=== PATIENT | male | born 1955 | race Caucasian/White ===

== ENCOUNTER 2016-12-14 16:21 | Inpatient (IN) | payer MEDICAID ==
[2016-12-14] MEDS ORDERED: Etomidate* 2 MG/ML 20 ML VIAL (40 MG) ONE (16:28)
[2016-12-14] MEDS ORDERED: NS 0.9% 1000 ML* 1,000 ML IV ONE (16:43)
[2016-12-14] MEDS ORDERED: Propofol* 100 ML ONE ×2 (17:05→19:52)
--- NOTE | 2016-12-14 17:07 | RAD ---
Indication: Code Schaefer. Neurologic changes. Comparison: No relevant prior exams available on the [facility] for comparison. Technique: Noncontrast CT vertex of skull through foramen magnum. Report: The sulci, ventricles, and basal cisterns are normal for age. Schaefer matter white matter differentiation is preserved without evidence for edema. No intra or extra axial hemorrhage, mass, or fluid collection detected. Unremarkable visualized orbital contents. Normal variant LEFT dominant vertebral artery. Tortuous basilar artery. Unremarkable calvarium and skull base. Unremarkable scalp. The visualized paranasal sinuses and LEFT mastoid air spaces are clear. Partially opacified hypoplastic RIGHT mastoid air spaces. IMPRESSION: No CT stigmata of ischemic stroke or evidence for intracranial hemorrhage. Negative for mass effect. Results discussed with Dr. Proctor 12/14/2016 5:02 PM EDT
[2016-12-14] MEDS ORDERED: Midazolam* 1 MG/ML 10 ML VIAL (10 MG) ONE (17:47)
[2016-12-14] MEDS ORDERED: Propofol* 500 MG/50 ML BTL IV SCH (18:00)
[2016-12-14] MEDS ORDERED: Aspirin TAB* 325 MG PO ONE (18:01)
[2016-12-14] MEDS ORDERED: Midazolam* 1 MG/ML 2 ML VIAL (2 MG) IV PRN (18:02)
--- NOTE | 2016-12-14 18:06 | RAD ---
Indication: Neurological changes. Code [place]. Comparison: No relevant prior exams available on the [facility] [place] for comparison. Technique: Supine AP 1735 hours Report: Tip of endotracheal tube 12 cm above the Farida. Nasogastric tube passes to the stomach and outside the hzvpb-xr-nodn caudally. Grossly clear lungs and pleural spaces. Negative for cardiomegaly. Unremarkable central pulmonary vasculature and mediastinal contours. IMPRESSION: The endotracheal tube should be advanced approximate 6.5 cm. No evidence for acute intrathoracic disease.
[2016-12-14] MEDS ORDERED: Amiodarone 150 MG IVPREMIX* 150 MG/100 ML BAG IV ONE (18:22)
[2016-12-14] MEDS ORDERED: Atorvastatin* 80 MG TAB PO ONE (18:26)
[2016-12-14] MEDS ORDERED: Amiodarone 360 MG IVPREMIX* 360 MG/200 ML BAG IV ONE (18:30)
[2016-12-14 18:37] LABS: Troponin I 6.1 ng/mL (<0.04)
[2016-12-14 18:38] LABS: Albumin 4.1 g/dL (3.2-5.2); EGFR African American 87.2 (>60); EGFR Non-African American 67.8 (>60); Globulin 2.8 g/dL (2-4); HDL Cholesterol 36.9 mg/dL; Potassium 3.9 mmol/L (3.5-5.0); Total Bilirubin 0.5 mg/dL (0.2-1.0); Total Protein 6.9 g/dL (6.4-8.9)
--- NOTE | 2016-12-14 18:43 | PN ---
Progress Note - Progress Note Date of Service: 12/14/16 Note: Endotracheal Intubation Procedure Note Indication: cardiac arrest, respiratory failure Procedure done emergently. Patient preoxygenated/denitrogenated with 100% FiO2 using bagmask Patient was medicated with etomidate for sedation Visualization of vocal cords with Grade 2 view obtained using glidescope. 7.5 ETT was passed through the vocal cords under direct visualization and confirmed with condensation, chest rise with bilateral breath sounds and positive color change x3 on qualitative capnography. ETT was secured at 24 cm at lip. CXR - ett high in trachea; readjusted to moved 3 cm down further, good TV post and sats Patient tolerated procedure without immediate complication. Paul Ybarra MD Pharmacy Affairs Assistant (electronically signed)
[2016-12-14] MEDS ORDERED: Midazolam* 1 MG/ML 2 ML VIAL (2 MG) ONE (18:53)
--- NOTE | 2016-12-14 18:56 | HP ---
H&P (Free Text) History and Physical: H&P - Critical Care Reason for admission: cardiac arrest Limitations in history/physical: intubated, post arrest Date of admission: 12/14/2016 HPI: 61y M with history of smoking; brought in by EMS for cardiac arrest. According to workers at [employer], patient developed chest pain past 1 week , on and off. Today at 915 chest pain+, rested, around noon he was working again. Around 3pm he suddenly collapsed, was gasping for air, workers called 911, they advised CPR, started by workers. EMS arrived 10min later and another 10min later alternate EMS. Patient defibrillated x3 for VF, with ROSC. First EKG with inferior wall THA II/III/AvF. Brought to ER, pulse in hand, agonal breaths, intubated. NSR, BP 130s, eyes open nonresponsive. Before intubation and given etomidate, noted to be not moving right side. Immediate EKG with THA inferiorly resolved. Due to right upper ext not moving, not waking up, cath was delayed till CT head done. Stat CT head done, no bleed. Neuro evaluating, pupils sluggish on right but reactive, not moving upper right ext, not moving lower right ext, still not well responsive, episodes of posturing also evident at times. Decision that severe neuro injury might be in place, less thinking of possible ischemic CVA. Decision not to give tPA by neuro and team based on his state. Cath delayed due to resolved ST segments, some hemodyn stability and unclear neurological status with possible severe anoxic injury/posturing/CVA. Decision made to give asa/statin, amio start for VF, hypothermia protocol. This was discussed with the son at length in the ER and his current condition. ROS: unable to obtain, intubated PMHx: unknown PSHx: unknown Family History: non signficant as per son Social History: Alcohol-none, Smoking-active, unknown quantity, Drug use-no; Job -customer care representative Allergies: unknown Home Medications: unknown Tele: NSR Vitals: Intake & Output 12/14/16 12/14/16 12/15/16 06:59 18:59 06:59 Weight 176 lb 5.917 oz O2/Vent: switch to AC 16/500/+5/100% Infusions: propofol, levophed, NS Current Medications: Atorvastatin Calcium (Lipitor*) 80 mg PO 1700 [facility] Heparin Sodium (Porcine) (Heparin Flush Picc/Ml/Cvc(*)) 0 ml FLUSH 0600,1800 GABO PRN Reason: Protocol Heparin Sodium (Porcine) (Heparin Vial(*)) 5,000 units SUBCUT Q8HR [facility] Propofol (Diprivan*) 500 mg in 50 mls @ 9.6 mls/hr IV .(Initial Rate) GABO PRN Reason: 20 MCG/KG/MIN Amiodarone HCl (Nexterone 360 Mg/200 Ml Ivpremix*) 360 mg in 200 mls @ 33.333 mls/hr IV ONCE ONE PRN Reason: 1 MG/MIN Stop: 12/15/16 00:29 Amiodarone HCl (Nexterone 360 Mg/200 Ml Ivpremix*) 360 mg in 200 mls @ 16.666 mls/hr IV .PER PROTOCOL [facility] PRN Reason: 0.5 MG/MIN Midazolam HCl (Versed 2mg/2ml*) 2 mg IV Q1HR PRN PRN Reason: AGITATION Stop: 12/17/16 18:01 Pantoprazole Sodium (Protonix Iv*) 40 mg IV DAILY [facility] Physical Exam: General: intubated sedated Head: normocephalic, atraumatic HEENT: no pallor, no icterus, moist mucous membranes Neck: soft, supple, no jvd, no stridor CVS: normal rate, normal rhythm, no murmur Resp: dec air entry bilaterally Abdomen: soft, nondistended, bowel sounds present Ext: pulses+, warm, no edema Skin: intact, no breakdown, no dryness Neuro: intubated sedated; pupils constricted but reactive me; right upper ext no movement with any stimuli, right lower ext soem movement after a few hours; gag+, cough+ Labs: Laboratory Results - last 24 hr 12/14/16 12/14/16 12/14/16 16:35 16:35 16:55 WBC 16.9 H RBC 4.55 Hgb 15.3 Hct 46 MCV 102 H MCH 34 H MCHC 33 RDW 13 Plt Count 326 MPV 9 Neut % (Auto) 61.6 Lymph % (Auto) 27.7 [place] % (Auto) 9.0 Eos % (Auto) 1.0 Baso % (Auto) 0.7 Absolute Neuts (auto) 10.4 H Absolute Lymphs (auto) 4.7 Absolute Monos (auto) 1.5 H Absolute Eos (auto) 0.2 Absolute Basos (auto) 0.1 Absolute Nucleated RBC 0.01 Nucleated RBC % 0 INR (Anticoag Therapy) 0.94 APTT 27.5 Sodium Potassium Chloride Carbon Dioxide Anion Gap BUN Creatinine Est GFR ( Amer) Est GFR (Non-Af Amer) BUN/Creatinine Ratio Glucose Calcium Total Bilirubin AST ALT Alkaline Phosphatase Total Creatine Kinase CK-MB (CK-2) Troponin I Total Protein Albumin Globulin Albumin/Globulin Ratio Triglycerides Cholesterol LDL Cholesterol HDL Cholesterol Blood Type A Positive Antibody Screen Negative 12/14/16 16:55 WBC RBC Hgb Hct MCV MCH MCHC RDW Plt Count MPV Neut % (Auto) Lymph % (Auto) [place] % (Auto) Eos % (Auto) Baso % (Auto) Absolute Neuts (auto) Absolute Lymphs (auto) Absolute Monos (auto) Absolute Eos (auto) Absolute Basos (auto) Absolute Nucleated RBC Nucleated RBC % INR (Anticoag Therapy) APTT Sodium 139 Potassium 3.9 Chloride 106 Carbon Dioxide 22 Anion Gap 11 BUN 20 Creatinine 1.11 Est GFR ( Amer) 87.2 Est GFR (Non-Af Amer) 67.8 BUN/Creatinine Ratio 18.0 Glucose 167 H Calcium 9.0 Total Bilirubin 0.50 AST 109 H ALT 80 H Alkaline Phosphatase 69 Total Creatine Kinase 821 H CK-MB (CK-2) 165.8 H Troponin I 6.10 H* Total Protein 6.9 Albumin 4.1 Globulin 2.8 Albumin/Globulin Ratio 1.5 Triglycerides 142 Cholesterol 254 LDL Cholesterol 189 HDL Cholesterol 36.9 Blood Type Antibody Screen Imaging: cxr 12/14- ett high, no infitlrate/effusion, hyperinflated lungs it appears ct head - neg for acute process. Assessment: 61y M with history of smoking; brought in by EMS for out of hospital cardiac arrest, VFib arrest, with transient THA inferiorly and h/o chest pain for 1 week. Noted to have possible CVA vs severe anoxic injury in ER , holding on cardiac catheterization. -VF cardiac arrest -Transient ST elevation, inferiorly, suspected STEMI -Acute Hypoxic Respiratory Failure -Hypothermia protocol -Encephelopathy, suspected hypoxic-ischemic encephelopathy vs CVA during arrest -tobacco use history Plan: Neuro- based on presentation, this may be more anoxic injury. will start hypothermia protocol. ct head neg 12/14. will repeat CT head in 12-24 hours. sedation with propofol. IV paralytics for shivering if needed. watch for fevers. bdz only as needed bolus. Goal temp will be 34-35deg C. CVS- post arrest. EKG improved, no further ST changes or minimal. started asa 325 x1, statin. Will follow trop, may need heparin IV but reassess tomorrow after CT head to see if evolution of CVA. TTE for LV function, bedside was okay with hyperdyn LV, RV slightly hypokinetic. Watch for bradycardia on hypothermia. Watch K. Start Amio IV for VF. Cont IVF NS at 75cc/hour. on Pressors with levophed, goal SBP 100, keep MAP>65. Monitor urine output. Arterial cath in place in right fem art. May be in post arrest SIRS state with hypotension vs cardiogenic component. Resp- intubated, ETT moved after reviewed CXR. no effusion/infiltrate. on 100%, obtain ABG now, adjust fio2. Peak pr 22. h/o smoking, hyperinflated lungs on CXR. bronchodilators as needed. no steroids indicated. cxr tomorrow, abg in AM. ID- leukocytosis, may be reactive. hypotensive post arrest. on hypothermia now. will hold abx, clinical history not consistent with sepsis. GI- NPO. insert NGT. PPI prophylaxis Renal- Cr 1.1, making urine. K okay, no acidosis. pending lactic acid. chen in place. Cont NS infusion, cont pressors. Heme- hg okay. plt okay. started asa. monitor for bleeding and plt dysfunction while hypothermia ongoing. INR normal. Endo- insulin protocol, drip as needed if hyperglycemia. Musculsk- pressure ulcer proph. Wounds- none DVT prophylaxis: hold heparin sq for tonight GI prophylaxis: PPI iv Central Line: right fem Arterial Line: right fem Chen Cathetor: yes Disposition: ICU for cardiac arrest, resp failure, shock, hypothermia Code Status: full code Total Critical Care time is 90 minutes, excluding procedures/teaching Paul Ybarra MD Concrete Boom Operator (Electronically Signed)
[2016-12-14] MEDS ORDERED: Norepinephrine 16MCG/ML IVPRE* 4,000 MCG/250 ML BAG IV ONE (19:21)
--- NOTE | 2016-12-14 19:42 | PN ---
Progress Note - Progress Note Date of Service: 12/14/16 Note: Arterial Line Procedure Note Indication: hypotension/shock, cardiac arrest Consent was emergent - Prior labs/history was reviewed prior to procedure - Full sterile precautions with chlorhexidine/full drapes/gowns/gloves utilized - right fem artery visualized with US - Vessel accessed with return of pulsatile blood. 1 attempt was made to access vessel. A cathetor was threaded over wire into vessel. Good arterial waveform was observed on monitor. - Arterial Catheter was sutured to site - Adequate hemostasis was achieved, EBL <5 cc No immediate complications noted, patient tolerated procedure well. Dressing applied to site. Paul Ybarra MD Tile Machine Operator (electronically signed)
[2016-12-14] MEDS ORDERED: NS 0.9% 1000 ML* 1,000 ML ONE (19:43)
--- NOTE | 2016-12-14 19:43 | PN ---
Progress Note - Progress Note Date of Service: 12/14/16 Note: Central Line Procedure Note Indication: Hypotension/shock, hypothermia protocol Hypothermia cathetor placement Consent was emergent - Prior labs/history was reviewed prior to procedure - Full sterile precautions with chlorhexidine/full drapes/gowns/gloves utilized - right fem vein visualized with ultrasound - Vessel accessed under ultrasound guidance with return of nonpulsatile blood. A guidewire was passed into vessel and confirmed in vessel with ultrasound. 1 attempt was made to access vessel. Vessel was dilated and cathetor was passed over wire into vessel. All ports demonstrated good blood return and flushed. Catheter was sutured to site and dressing applied Adequate hemostasis was achieved, EBL <5 cc No immediate complications noted, patient tolerated procedure well. Paul Ybarra MD Server Programmer (electronically signed)
[2016-12-14 19:46] LABS: Hematocrit 46 % (42-52); Hemoglobin 15.3 g/dl (14.0-18.0); Mean Corpuscular HGB Conc 33 g/dl (31-36); Mean Corpuscular Hemoglobin 34 pg (27-31); Mean Corpuscular Volume 102 fL (80-94); Mean Platelet Volume 9 um3 (7.4-10.4); Red Blood Count 4.55 10^6/ul (4.0-5.4); Red Cell Distribution Width 13 % (10.5-15); White Blood Count 16.9 10^3/ul (3.5-10.8)
[2016-12-14] MEDS ORDERED: Propofol* 10 MG/ML 20 ML BTL IV PUSH ONE (19:51)
[2016-12-14] MEDS ORDERED: VECURONIUM BROMIDE 10 MG INJ IV STA (20:04)
[2016-12-14] MEDS ORDERED: Meperidine SYRINGE* 50 MG/ML ONE (20:05)
--- NOTE | 2016-12-14 20:12 | ED ---
Singh Valenzuela Thomas, scribed for Breezy Proctor MD on 12/14/16 at 1748 . Complex/Multi-Sys Presentation - HPI Summary HPI Summary: The patient is a 61 y/o M who collapsed when he was at work. He had been complaining of CP all day long. Bystanders started CPR soon after he collapsed. The ambulance arrived and found that the patient was in V-Fib. They defibrillated him three times while performing CPR, and he had spontaneous return of pulses. They transported him with a bag assisting respirations with an oral airway and transmitted an EKG via fax which showed ST elevations inferiorly. A STEMI was called and he was met in the room by Dr. Genao and Dr. Ybarra. LEVEL 5 CAVEAT: HPI IS LIMITED DUE TO DECREASED LEVEL OF RESPONSIVENESS - History Of Current Complaint Hx Obtained From: EMS Hx From Patient Unobtainable Due To: Other - Decreased level of responsiveness - Allergies/Home Medications Allergies/Adverse Reactions: Allergies Allergy/AdvReac Type Severity Reaction Status Date / Time Unable to Obtain Allergy Verified 12/14/16 17:58 Home Medications: Home Medications NK [No Home Medications Reported] 12/14/16 [History Confirmed 12/14/16] PMH/Surg Hx/FS Hx/Imm Hx Previously Healthy: No - LEVEL 5 CAVEAT: PMH IS LIMITED DUE TO DECREASED LEVEL OF RESPONSIVENESS Infectious Disease History: Denies: Traveled Outside the [place] in Last 30 Days Review of Systems - ROS Summary Review of Systems Summary: LEVEL 5 CAVEAT: ROS IS LIMITED DUE TO DECREASED LEVEL OF RESPONSIVENESS Neurological: Other - Collapsed while at work. All Other Systems Reviewed And Are Negative: No Physical Exam - Summary Physical Exam Summary: On arrival, the patients pupils were equal at 2-3 mm. The left eye is slightly disconjugated to the left. He had no gag reflex. There are spontaneous respirations. He was extensor posturing with more movement on the left than the right. He had bilateral breath sounds. He was borderline tachycardic. LEVEL 5 CAVEAT: PHYSICAL EXAM LIMITED BY DECREASED RESPONSIVENESS Triage Information Reviewed: Yes Diagnostics - Laboratory Lab Results: Lab Results 12/14/16 Range/Units 16:35 Blood Type A Positive Antibody Screen Negative Result Diagrams: 12/14/16 16:35 12/14/16 16:55 Lab Statement: Any lab studies that have been ordered have been reviewed, and results considered in the medical decision making process. - CT CT Brain CT Interpretation: No Acute Changes - No CT stigmata of ischemic stroke or evidence for intracranial hemorrhage. Negative for mass effect. ED physician has reviewed this report and agrees. CT Interpretation Completed By: Radiologist - EKG 15:26 Cardiac Rate: Tachycardia - [address] elevations in II, III, and AVF consistent with an acute inferior TN. There are no reciprocal changes. EKG Rhythm: Sinus Tachycardia Complex Multi-Symp Course/Dx Course Of Treatment: Mr. Moncada presented obtunded. He occasionally had extensor posturing (moving his left side more) to noxious stimuli. His ecg from the field showed ST elevations in the inferior leads without reciprocal changes but his iinitial ecg here was improved. There were still elevations but they were not nearly as pronounced. 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 Dr. Cowart consulted on him and elected not to give him thrombolytics. Dr. Ybarra is admitting him to the ICU. - Diagnoses Provider Diagnoses: STEMI (ST elevation myocardial infarction), Cardiopulmonary arrest, Anoxic brain damage - Physician Notifications Discussed Care Of Patient With: Pierce Genao Time Discussed With Above Provider: 16:30 Instructed by Provider To: Other - I consulted with Dr. Genao (cardiology), Dr. Ybarra (water pollution scientist), and Dr. Cowart (neurology) regarding the patient. They came to the ED to assess the patient. - Critical Care Time Critical Care Time: 75-104 min Discharge - Discharge Plan Condition: Fair Disposition: ADMITTED TO [facility] The documentation as recorded by the Singh ansari Thomas accurately reflects the service I personally performed and the decisions made by me, Breezy Proctor MD.
[2016-12-14] MEDS ORDERED: NS 0.9% 1000 ML* 1,000 ML IV SCH (20:15)
[2016-12-14] MEDS ORDERED: Cisatracurium* 100 MG in NS 0.9% 250 ML* 200 ML IVPB SCH (20:15)
[2016-12-14] MEDS ORDERED: Albuterol (2.5 MG) 0.5 % CONC 2.5 MG/0.5 ML NEB.SOLN (ICU and ED only) INH PRN (20:17)
[2016-12-14] MEDS: Midazolam PREMIX BAG 1 MG/ML* 100 MG/100 ML BAG IV SCH (20:42)
[2016-12-14 20:46] LABS: Urine Bacteria Absent (Absent); Urine Bilirubin Negative (Negative); Urine Glucose Negative (Negative); Urine Nitrite Negative (Negative); Urine Sperm Present (Absent)
--- NOTE | 2016-12-14 21:42 | RAD ---
Indication: Orogastric tube placement. Code willingham. Comparison: 1734 hours exam of the same date. Technique: Upright AP 2118 hours Report: Endotracheal tube tip 8 cm above the Farida. Orogastric tube passes to the stomach with the tip outside the [id number]-qz-yfyb caudally. Grossly clear lungs and pleural spaces. Negative for pneumothorax. Negative for cardiomegaly. Unremarkable central pulmonary vasculature and mediastinal contours. IMPRESSION: Endotracheal tube tip 8 cm above the Farida. Orogastric tube passes to the stomach with the tip outside the [id number]-ld-gjrz caudally.
[2016-12-14] MEDS ORDERED: busPIRone TAB* 30 MG NG TUBE PRN (21:48)
--- NOTE | 2016-12-14 21:50 | CONS ---
NEUROLOGY CONSULTATION: DATE OF CONSULT: 12/14/16 LOCATION: The patient is in the emergency department. REQUESTING PHYSICIAN: Pierce Genao MD REASON FOR CONSULT: Possible stroke. 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 Around 3:30 p.m. apparently, the patient was witnessed to fall and become unresponsive at work. He had reportedly been complaining of chest pain all day. Reportedly CPR was started within 2 to 3 minutes and EMS arrived within 15 minutes. The report of Dr. Proctor received from EMS is that he was shocked 3 times given no medications and they got return of spontaneous circulation at that point. He was brought into the ER with an oral airway and being bagged, but he had no gag reflex upon arriving. He was reported to have inferior ST elevations in the field and on arrival here, Dr. Genao reports that they were minimal at best. The patient began actively resisting with his left arm and was not noted to be moving his right arm much and therefore, Dr. Genao had concern that the patient was possibly experiencing a stroke as well. At that point, I was asked to get involved in the patient's case. When I arrived in the emergency department, the patient had been intubated and had been given etomidate. He was noted to be exhibiting some decerebrate posturing. He was emergently brought to the CAT scan out of concern for a possible hemorrhage. In the CT scanner, he continued to exhibit decerebrate posturing with left arm moving more than right arm, but his legs moving equally. He was given succinylcholine to get through the CT. PAST MEDICAL HISTORY: Unknown. HOME MEDICATIONS: Unknown. ALLERGIES: Unknown. FAMILY HISTORY: Unknown. SOCIAL HISTORY: Unknown. REVIEW OF SYSTEMS: Not obtainable secondary to the patient's condition. PHYSICAL EXAM: Vital Signs: The patient's blood pressure most recently was noted to be approximately 120s/100s. He is in sinus rhythm on the monitor in the 110s. He is intubated. On general exam, the patient is poorly groomed with very dirty hands. He evacuated his bowels on the ER stretcher. As the paralytic wore off, he is noted to be coughing and fighting against the ventilator. His heart is regular with no obvious murmurs. The lungs were clear anteriorly. Neurologic Exam: He does not respond to voice. His gaze is midline. His pupils are 4-mm and the left briskly reacts to approximately 2.5 mm while the right is more sluggishly reactive to approximately 3 mm. VORs are intact. There is no blink to threat bilaterally. There is no obvious facial asymmetry, though difficult to assess secondary to intubation. He has normal tone in his upper extremities. He is noted to be exhibiting decerebrate posturing left greater than right. He does not respond to pain in any extremity. Toes are mute. Of note, the patient received small dose of succinylcholine approximately 10 minutes prior to my exam. DIAGNOSTIC STUDIES/LAB DATA: Noncontrast head CT was obtained and personally reviewed and shows no evidence for intracranial hemorrhage nor any large vessel occlusion. There is no evidence of obvious prior stroke. There is no evidence of early ischemic changes either. No laboratory data is available at this time. IMPRESSION AND PLAN: Stephane Moncada is a 61-year-old man with unknown past medical history and home medications, who presented to the hospital with a witnessed cardiac arrest. I was asked to be get involved in the case when he appeared to have a right hemiparesis on Dr. Genao's evaluation. His CT scan was negative for hemorrhage. His examination is notable for decerebrate posturing with intact brainstem reflexes. The posturing is asymmetric with him moving the right arm less than the left. Nevertheless, I do not think that he is an appropriate tPA candidate at this time, as his presentation appears more consistent with diffuse anoxic injury. There is no target seen on his plain head CT for endovascular therapy. Dr. Ybarra from the ICU is involved as well and I believe the patient is going to be cooled and a repeat head CT will be obtained in approximately 12 hours to assess for anoxic injury or focal injury. Thank you for this consultation. Neurology will follow along as needed in this unfortunate gentleman's case. [id number]/[facility] #: [id number] [facility]
[2016-12-14] MEDS ORDERED: Fentanyl PCA (Continuous Infusion)* 20 ML PCA SCH (22:00)
[2016-12-14] MEDS ORDERED: busPIRone TAB* 30 MG NG TUBE ONE (22:00)
--- NOTE | 2016-12-14 22:07 | CONS ---
INTERVENTIONAL CARDIOLOGY CONSULT NOTE: DATE OF CONSULT: 12/14/16 REASON FOR THE CONSULT: The patient with an [id number] arrest with a question of inferior wall ST segment elevation on EKG at the scene. 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 According to [place] worker, he states that for the past week and a half, he has been complaining about chest and left arm discomfort. Today when he came in to do work on the car, Stephane had the chest discomfort, left arm discomfort. According to the worker, he did not have shortness of breath or sweating or nauseousness. Stephane worked during the day and then went to lunch at 12 noon. He came back around 1 and worked in the afternoon. He no longer complained of any chest discomfort to the worker. The worker stated he did not appear diaphoretic or short of breath. He took a break and went to sit on the stool and according to the worker, "keeled over." The worker called 911. 911 instructed him how to perform CPR, which he started within 2 minutes of him collapsing. Within 5 minutes, a lead car emergency service worker arrived and tried to shock Stephane back to normal sinus rhythm. Reportedly according to [facility], he was in VFib. Multiple shocks were attempted and were not successful. [facility] arrived within 20 minutes of the original phone call according to the worker and I believe they shocked him one more time and was getting ready to shock him again and he developed a pulse. With that, they did an EKG and the EKG revealed a sinus rhythm with what appeared to be J-point elevation in 2, 3, aVF, although the baseline was moving quite a bit. He had no definitive reciprocal changes in the early precordial leads. He was brought in by ambulance and in the emergency room, a repeat EKG had shown a question of mild ST segment elevation more prominent in lead aVF with slightly in lead 2 and to some degree in lead 3. Once again, there were no definitive impressive reciprocal changes seen. It was noted that the patient was moving his left arm quite strongly, but not moving his right arm at all. He was not moving his right leg either. Because of that, a Oren Vu was called. Also, Dr. Cowart saw the patient in consultation. He was sent to a CAT scan after there were signs of him posturing with the concern being a bleed. The CAT scan did not show any bleed. At that point, Dr. Cowart was uncertain, but thought that perhaps this was all due to hypoxic cerebral ischemia. Dr. Ybarra managed the case from intensive care basis and the patient was intubated prior to going to CT scan and the patient was sedated. Repeat EKG was done and at that time showed no ST segment elevation inferiorly. An echo was attempted portably and it was a poor quality echo with the most best views obtained subcostally and it showed a hyperdynamic LV with the RV hypokinetic. From a cardiac risk factor, I have learnt that he is a heavy smoker all of his life. We do not know anything about diabetes, hypertension, or hyperlipidemia and there is no family history according to his son. REVIEW OF SYSTEMS: Unobtainable and other information necessitating in speaking with the patient is obviously unobtainable at this point. PHYSICAL EXAMINATION: When I saw him revealed blood pressure initially in the emergency room as high in the 130's to 170's, after sedation his blood pressure dropped significantly down more transiently into the 80 range up into the 90's with fluid response. His neck was supple. It is impossible to assess for bruits present due to his breath sounds on the respirator. His lungs had diminished breath sounds bilaterally. There was a question of slight wheeze present. Heart was very distant in nature, I did not appreciate any significant systolic or diastolic murmurs. Abdomen was soft, nontender. Extremities were without edema. The right femoral artery was diminished. I could not hear a definitive bruit. The left femoral artery had a good pulse with no bruits. Distal pulses were mildly diminished. Neuro: The patient is sedated, so cannot be assessed. DIAGNOSTIC STUDIES/LAB DATA: Laboratory results are pending at this time and chest x-ray showed interstitial edema. OVERALL ASSESSMENT: Mr. Moncada presents now with an out of hospital arrest, most likely ventricular fibrillation, although the history of a stroke was brought up , but with the further history we elicited from the worker at the automobile place where he works on cars of left arm discomfort and chest discomfort, most likely this is more of an ischemic nature. The EKG shows no acute ST segment elevation at this point in time and Neurology and Intensive Care favors not proceeding directly to the cardiovascular laboratory with institution of a full bolus anticoagulation therapy, but we will watch him carefully over the course of the next 24 hours and if he does not progress with any potential bleeding, consideration for anticoagulation and emergent cardiac catheterization will be entertained. He will be given aspirin therapy in addition to statin therapy and beta darya therapy if he can tolerate it with regard to his pressure. Further management will be made pending his course over the next 12 to 24 hours. The time involved with this patient was over 2 hrs with most of it directly with the patient. [id number]/CPS #: [id number] KATINA
[2016-12-14 22:28] LABS: FIO2 100; Patient Temp ABG 35.6; Resp Rate 17; Ventilator Volume 500
[2016-12-14 22:31] LABS: PH Temp Corrected 7.22 (7.35-7.45)
[2016-12-14] MEDS: Heparin VIAL(*) 5000 UNITS/ML VIAL (FIVE THOUSAND) SUBCUT SCH (22:38)
[2016-12-14] MEDS: Norepinephrine 16MCG/ML IVPRE* 4,000 MCG/250 ML BAG IV SCH (22:43)
[2016-12-15] LABS: Anion Gap 7 mmol/L (2-11); BUN/Creatinine Ratio 28.2 (8-20); Blood Urea Nitrogen 22 mg/dL (6-24); CO2 Carbon Dioxide 24 mmol/L (22-32); Calcium 7.8 mg/dL (8.6-10.3); Chloride 107 mmol/L (101-111); EGFR Non-African American 101.9 (>60); Glucose 208 mg/dL (70-100); Magnesium 1.9 mg/dL (1.9-2.7); Potassium 4.5 mmol/L (3.5-5.0); Sodium 138 mmol/L (133-145)
[2016-12-15 00:11] LABS: Troponin I 21.95 ng/mL (<0.04)
[2016-12-15] MEDS: Propofol* 1000 MG (10 MG/ML 100 ml) @ Per Protocol (in ICU Pyxis) IV SCH ×6 (00:13→23:12)
[2016-12-15 00:18] LABS: Creatine Kinase 2383 U/L (10-223)
[2016-12-15] MEDS ORDERED: Amiodarone 360 MG IVPREMIX* 360 MG/200 ML BAG IV SCH (00:30)
[2016-12-15] MEDS: Norepinephrine 16MCG/ML IVPRE* 4,000 MCG/250 ML BAG IV SCH ×3 (01:27→19:23)
[2016-12-15 02:28] LABS: Phosphorus 3.8 mg/dL (2.5-5.0)
[2016-12-15 04:44] LABS: PCO2 Arterial 27 mmHg (35-45)
[2016-12-15 04:48] LABS: Hematocrit 47 % (42-52); Hemoglobin 15.6 g/dl (14.0-18.0); Mean Corpuscular HGB Conc 33 g/dl (31-36); Mean Corpuscular Hemoglobin 34 pg (27-31); Mean Corpuscular Volume 102 fL (80-94); Mean Platelet Volume 8 um3 (7.4-10.4); Red Blood Count 4.57 10^6/ul (4.0-5.4); Red Cell Distribution Width 14 % (10.5-15)
[2016-12-15 04:55] LABS: Comments Flag Yes
[2016-12-15 04:58] LABS: Add Diff/Slide Review? Slide Review Added
[2016-12-15 05:04] LABS: ALT 86 U/L (7-52); Albumin 3.7 g/dL (3.2-5.2); Alkaline Phosphatase 57 U/L (34-104); BUN/Creatinine Ratio 24.4 (8-20); Blood Urea Nitrogen 22 mg/dL (6-24); CO2 Carbon Dioxide 22 mmol/L (22-32); Calcium 7.7 mg/dL (8.6-10.3); Chloride 107 mmol/L (101-111); EGFR African American 111.1 (>60); EGFR Non-African American 86.4 (>60); Globulin 2.2 g/dL (2-4); Glucose 208 mg/dL (70-100); Phosphorus 3.6 mg/dL (2.5-5.0); Sodium 135 mmol/L (133-145); Total Protein 5.9 g/dL (6.4-8.9)
[2016-12-15 05:08] LABS: Troponin I 13.23 ng/mL (<0.04)
[2016-12-15 05:09] LABS: Anion Gap 6 mmol/L (2-11)
[2016-12-15] MEDS: Heparin VIAL(*) 5000 UNITS/ML VIAL (FIVE THOUSAND) SUBCUT SCH ×3 (05:57→22:29)
[2016-12-15 07:52] LABS: Creatine Kinase 2650 U/L (10-223)
--- NOTE | 2016-12-15 08:04 | RAD ---
HISTORY: Cardiac arrest COMPARISONS: December 14, 2016 VIEWS: 2: frontal portable view of the chest at 6 6:05 AM FINDINGS: LINES AND TUBES: An endotracheal tube is noted with the tip overlying the trachea between the clavicles and the toya. A gastric tube is noted, with the tip in the left upper quadrant in a prepyloric position.. CARDIOMEDIASTINAL SILHOUETTE: The cardiomediastinal silhouette is normal for portable technique. PLEURA: There is a small right pleural effusion. LUNG PARENCHYMA: There is patchy alveolar opacification of the right lung base ABDOMEN: The upper abdomen is clear. There is no subphrenic gas. BONES AND SOFT TISSUES: There is chronic posttraumatic change to the right clavicle IMPRESSION: 1. LINES AND TUBES ABOVE. 2. SMALL RIGHT PLEURAL EFFUSION WITH RIGHT BASILAR ATELECTASIS VERSUS CONSOLIDATION
[2016-12-15] MEDS: Pantoprazole IV* 40 MG IV SCH (08:33)
[2016-12-15] MEDS: Aspirin Low Dose CHEW TAB* 81 MG PO SCH (08:33)
--- NOTE | 2016-12-15 08:37 | PN ---
Progress Note - Progress Note Date of Service: 12/15/16 Note: Progress Note - Critical Care 24 hour events: -remains intubated, on pressors. -on propofol and versed for sedation -on levo, not much change in requirements -overnight bradycardia to 50s, still in 50s now, no further hypotension from haile -BS okay -no further shivering -on hypothermia protocol, temp 35.1Celcius -on amio infusion, no futher VT/VF noted -noted troponins overnight Tele: sinus bradycardia Vitals: Vital Signs Temp 95.2 F 12/15/16 08:00 Pulse 54 12/15/16 08:00 Resp 25 12/15/16 07:48 BP 96/74 12/15/16 08:00 Pulse Ox 98 12/15/16 08:00 Intake & Output 12/14/16 12/15/16 12/15/16 18:59 06:59 18:59 Intake Total 2830.6 247.5 Output Total 580 55 Balance 2250.6 192.5 Weight 176 lb 5.917 oz 203 lb 7.787 oz Intake: IV Fluids 1388 214 NS (0.9%) 1388 214 Medicated IV 1442.6 32.5 CC - Amiodarone 315 CC - Norepinephrine/ 884 Levophed CC - Propofol/Diprivan 206 32.5 midazolam 37.6 IV Narcotic Infusion 1 Versed 1 Output: Chen 580 55 O2/Vent: AC 16/500/+5/100% Infusions: propofol 50, levophed 20, NS 100, versed 1, amio 0.5mg/hr Current Medications: Albuterol (Albuterol (2.5 Mg) 0.5 % Conc) 2.5 mg INH Q4HR PRN PRN Reason: WHEEZING Aspirin (Aspirin Low Dose Tab*) 81 mg PO DAILY GABO Last Admin: 12/15/16 08:33 Dose: 81 mg Atorvastatin Calcium (Lipitor*) 80 mg PO 1700 GABO Buspirone HCl (Buspar Tab*) 60 mg NG TUBE Q6H PRN PRN Reason: SHIVERING Heparin Sodium (Porcine) (Heparin Flush Picc/Ml/Cvc(*)) 0 ml FLUSH 0600,1800 GABO PRN Reason: Protocol Last Admin: 12/15/16 05:57 Dose: 1 ml Heparin Sodium (Porcine) (Heparin Vial(*)) 5,000 units SUBCUT Q8HR [facility] Last Admin: 12/15/16 05:57 Dose: 5,000 units Amiodarone HCl (Nexterone 360 Mg/200 Ml Ivpremix*) 360 mg in 200 mls @ 16.666 mls/hr IV .PER PROTOCOL GABO PRN Reason: 0.5 MG/MIN Last Admin: 12/15/16 03:48 Dose: 16.666 mls/hr Cisatracurium Besylate 100 mg/ (Sodium Chloride) 250 mls @ 60 mls/hr IVPB .( Initial Rate) GABO PRN Reason: 5 MCG/KG/MIN Midazolam HCl (Versed Premix Bag 1 Mg/Ml*) 100 mg in 100 mls @ 0 mls/hr IV .Q24HR GABO PRN Reason: As Directed Last Admin: 12/14/16 20:42 Dose: 4 mls/hr Sodium Chloride (Ns 0.9% 1000 Ml*) 1,000 mls @ 100 mls/hr IV PER RATE [facility] Last Admin: 12/15/16 01:56 Dose: 100 mls/hr Norepinephrine Bitartrate (Levophed 16 Mcg/Ml Premix Bag*) 4,000 mcg in 250 mls @ 18.75 mls/hr IV .INITIAL RATE GABO; 5 MCG/MIN PRN Reason: Protocol Last Admin: 12/15/16 07:53 Dose: 45 mls/hr Propofol (Diprivan*) 100 mls @ 0 mls/hr IV .(Initial Rate) GABO; 0 MCG/KG/MIN PRN Reason: Protocol Last Admin: 12/15/16 08:16 Dose: 12 mls/hr Meperidine HCl (Demerol Syringe*) 25 mg IV ONCE PRN PRN Reason: PAIN/INFLAMMATION Meperidine HCl (Demerol Syringe*) 25 mg IV Q1H PRN PRN Reason: SHIVERING Midazolam HCl (Versed 2mg/2ml*) 2 mg IV Q1HR PRN PRN Reason: AGITATION Stop: 12/17/16 18:01 Pantoprazole Sodium (Protonix Iv*) 40 mg IV DAILY [facility] Last Admin: 12/15/16 08:33 Dose: 40 mg Physical Exam: General: intubated sedated Head: normocephalic, atraumatic HEENT: no pallor, no icterus, moist mucous membranes Neck: soft, supple, no jvd, no stridor CVS: bradycardic, normal rhythm, no murmur Resp: dec air entry bilaterally Abdomen: soft, nondistended, bowel sounds present Ext: pulses+, warm, no edema Skin: intact, no breakdown, no dryness Neuro: intubated sedated; pupils constricted but reactive me; no gap iliicited, no corneal illicited; limited exam due to sedation Labs: Laboratory Results - last 24 hr 12/14/16 12/14/16 12/14/16 16:35 16:35 16:55 WBC 16.9 H RBC 4.55 Hgb 15.3 Hct 46 MCV 102 H MCH 34 H MCHC 33 RDW 13 Plt Count 326 MPV 9 Neut % (Auto) 61.6 Lymph % (Auto) 27.7 Ness % (Auto) 9.0 Eos % (Auto) 1.0 Baso % (Auto) 0.7 Absolute Neuts (auto) 10.4 H Absolute Lymphs (auto) 4.7 Absolute Monos (auto) 1.5 H Absolute Eos (auto) 0.2 Absolute Basos (auto) 0.1 Absolute Nucleated RBC 0.01 Nucleated RBC % 0 INR (Anticoag Therapy) 0.94 APTT 27.5 Fibrinogen Cancelled D-Dimer, Quantitative > 1050 H Patient Temperature ABG pH ABG pH (Temp Correct) ABG pCO2 ABG pCO2 (Temp Corrct ABG pO2 ABG pO2 (Temp Correct ABG HCO3 ABG O2 Saturation ABG Base Excess Respiration Rate Ventilator Type Vent Mode FiO2 Inspiratory Time PEEP Pressure Support Pressure Control EPAP IPAP BiPAP Sodium Potassium Chloride Carbon Dioxide Anion Gap BUN Creatinine Est GFR ( Amer) Est GFR (Non-Af Amer) BUN/Creatinine Ratio Glucose POC Glucose (mg/dL) Lactic Acid Calcium Phosphorus Magnesium Total Bilirubin AST ALT Alkaline Phosphatase Total Creatine Kinase CK-MB (CK-2) Troponin I Total Protein Albumin Globulin Albumin/Globulin Ratio Triglycerides Cholesterol LDL Cholesterol HDL Cholesterol Lipase TSH Cortisol Urine Color Urine Appearance Urine pH Ur Specific [place] Urine Protein Urine Ketones Urine Blood Urine Nitrate Urine Bilirubin Urine Urobilinogen Ur Leukocyte Esterase Urine WBC (Auto) Urine RBC (Auto) Calcium Oxalate Crystal Amorphous Crystals Urine Bacteria Hyaline Casts Granular Casts Urine Sperm Urine Glucose Blood Type A Positive Antibody Screen Negative 12/14/16 12/14/16 12/14/16 16:55 19:45 20:20 WBC RBC Hgb Hct MCV MCH MCHC RDW Plt Count MPV Neut % (Auto) Lymph % (Auto) Ness % (Auto) Eos % (Auto) Baso % (Auto) Absolute Neuts (auto) Absolute Lymphs (auto) Absolute Monos (auto) Absolute Eos (auto) Absolute Basos (auto) Absolute Nucleated RBC Nucleated RBC % INR (Anticoag Therapy) APTT Fibrinogen D-Dimer, Quantitative Patient Temperature ABG pH ABG pH (Temp Correct) ABG pCO2 ABG pCO2 (Temp Corrct ABG pO2 ABG pO2 (Temp Correct ABG HCO3 ABG O2 Saturation ABG Base Excess Respiration Rate Ventilator Type Vent Mode FiO2 Inspiratory Time PEEP Pressure Support Pressure Control EPAP IPAP BiPAP Sodium 139 Potassium 3.9 Chloride 106 Carbon Dioxide 22 Anion Gap 11 BUN 20 Creatinine 1.11 Est GFR ( Amer) 87.2 Est GFR (Non-Af Amer) 67.8 BUN/Creatinine Ratio 18.0 Glucose 167 H POC Glucose (mg/dL) Lactic Acid 0.9 Calcium 9.0 Phosphorus 3.8 Magnesium 2.0 Total Bilirubin 0.50 AST 109 H ALT 80 H Alkaline Phosphatase 69 Total Creatine Kinase 821 H CK-MB (CK-2) 165.8 H Troponin I 6.10 H* Total Protein 6.9 Albumin 4.1 Globulin 2.8 Albumin/Globulin Ratio 1.5 Triglycerides 142 Cholesterol 254 LDL Cholesterol 189 HDL Cholesterol 36.9 Lipase 21 TSH Cortisol 23.75 Urine Color Yellow Urine Appearance Cloudy Urine pH 5.0 Ur Specific [place] 1.014 Urine Protein 2+(100 mg/dl) H Urine Ketones Negative Urine Blood 2+ H Urine Nitrate Negative Urine Bilirubin Negative Urine Urobilinogen Negative Ur Leukocyte Esterase Negative Urine WBC (Auto) 1+(6-10/hpf) H Urine RBC (Auto) 2+(6-10/hpf) H Calcium Oxalate Crystal Present H Amorphous Crystals Present H Urine Bacteria Absent Hyaline Casts Present H Granular Casts Present H Urine Sperm Present H Urine Glucose Negative Blood Type Antibody Screen 12/14/16 12/14/16 12/14/16 20:32 22:15 23:30 WBC RBC Hgb Hct MCV MCH MCHC RDW Plt Count MPV Neut % (Auto) Lymph % (Auto) Ness % (Auto) Eos % (Auto) Baso % (Auto) Absolute Neuts (auto) Absolute Lymphs (auto) Absolute Monos (auto) Absolute Eos (auto) Absolute Basos (auto) Absolute Nucleated RBC Nucleated RBC % INR (Anticoag Therapy) APTT Fibrinogen D-Dimer, Quantitative Patient Temperature 35.6 ABG pH Not Reportable ABG pH (Temp Correct) 7.22 L ABG pCO2 Not Reportable ABG pCO2 (Temp Corrct 27 L ABG pO2 Not Reportable ABG pO2 (Temp Correct 304 H ABG HCO3 12.9 L ABG O2 Saturation 99.2 H ABG Base Excess -15.4 L Respiration Rate 17 Ventilator Type 500 Vent Mode Apvcmv FiO2 100 Inspiratory Time Not Reportable PEEP 5 Pressure Support Not Reportable Pressure Control Not Reportable EPAP Not Reportable IPAP Not Reportable BiPAP Not Reportable Sodium 138 Potassium 4.5 Chloride 107 Carbon Dioxide 24 Anion Gap 7 BUN 22 Creatinine 0.78 Est GFR ( Amer) 131.0 Est GFR (Non-Af Amer) 101.9 BUN/Creatinine Ratio 28.2 H Glucose 208 H POC Glucose (mg/dL) 104 H Lactic Acid Calcium 7.8 L Phosphorus Magnesium 1.9 Total Bilirubin AST ALT Alkaline Phosphatase Total Creatine Kinase 2383 H CK-MB (CK-2) > 300.0 H Troponin I 21.95 H* Total Protein Albumin Globulin Albumin/Globulin Ratio Triglycerides Cholesterol LDL Cholesterol HDL Cholesterol Lipase TSH Cortisol Urine Color Urine Appearance Urine pH Ur Specific [place] Urine Protein Urine Ketones Urine Blood Urine Nitrate Urine Bilirubin Urine Urobilinogen Ur Leukocyte Esterase Urine WBC (Auto) Urine RBC (Auto) Calcium Oxalate Crystal Amorphous Crystals Urine Bacteria Hyaline Casts Granular Casts Urine Sperm Urine Glucose Blood Type Antibody Screen 12/14/16 12/15/16 12/15/16 23:57 02:34 04:13 WBC RBC Hgb Hct MCV MCH MCHC RDW Plt Count MPV Neut % (Auto) Lymph % (Auto) Ness % (Auto) Eos % (Auto) Baso % (Auto) Absolute Neuts (auto) Absolute Lymphs (auto) Absolute Monos (auto) Absolute Eos (auto) Absolute Basos (auto) Absolute Nucleated RBC Nucleated RBC % INR (Anticoag Therapy) APTT Fibrinogen D-Dimer, Quantitative Patient Temperature ABG pH ABG pH (Temp Correct) ABG pCO2 ABG pCO2 (Temp Corrct ABG pO2 ABG pO2 (Temp Correct ABG HCO3 ABG O2 Saturation ABG Base Excess Respiration Rate Ventilator Type Vent Mode FiO2 Inspiratory Time PEEP Pressure Support Pressure Control EPAP IPAP BiPAP Sodium Potassium Chloride Carbon Dioxide Anion Gap BUN Creatinine Est GFR ( Amer) Est GFR (Non-Af Amer) BUN/Creatinine Ratio Glucose POC Glucose (mg/dL) 144 H 147 H 204 H Lactic Acid Calcium Phosphorus Magnesium Total Bilirubin AST ALT Alkaline Phosphatase Total Creatine Kinase CK-MB (CK-2) Troponin I Total Protein Albumin Globulin Albumin/Globulin Ratio Triglycerides Cholesterol LDL Cholesterol HDL Cholesterol Lipase TSH Cortisol Urine Color Urine Appearance Urine pH Ur Specific [place] Urine Protein Urine Ketones Urine Blood Urine Nitrate Urine Bilirubin Urine Urobilinogen Ur Leukocyte Esterase Urine WBC (Auto) Urine RBC (Auto) Calcium Oxalate Crystal Amorphous Crystals Urine Bacteria Hyaline Casts Granular Casts Urine Sperm Urine Glucose Blood Type Antibody Screen 12/15/16 12/15/16 12/15/16 04:15 04:15 04:15 WBC 26.0 H RBC 4.57 Hgb 15.6 Hct 47 MCV 102 H MCH 34 H MCHC 33 RDW 14 Plt Count 254 MPV 8 Neut % (Auto) 84.7 H Lymph % (Auto) 8.1 L Ness % (Auto) 6.6 Eos % (Auto) 0.1 Baso % (Auto) 0.5 Absolute Neuts (auto) 22.1 H Absolute Lymphs (auto) 2.1 Absolute Monos (auto) 1.7 H Absolute Eos (auto) 0 Absolute Basos (auto) 0.1 Absolute Nucleated RBC 0 Nucleated RBC % 0 INR (Anticoag Therapy) APTT Fibrinogen D-Dimer, Quantitative Patient Temperature ABG pH ABG pH (Temp Correct) ABG pCO2 ABG pCO2 (Temp Corrct ABG pO2 ABG pO2 (Temp Correct ABG HCO3 ABG O2 Saturation ABG Base Excess Respiration Rate Ventilator Type Vent Mode FiO2 Inspiratory Time PEEP Pressure Support Pressure Control EPAP IPAP BiPAP Sodium 135 Potassium TNP Chloride 107 Carbon Dioxide 22 Anion Gap 6 BUN 22 Creatinine 0.90 Est GFR ( Amer) 111.1 Est GFR (Non-Af Amer) 86.4 BUN/Creatinine Ratio 24.4 H Glucose 208 H POC Glucose (mg/dL) Lactic Acid 1.6 Calcium 7.7 L Phosphorus 3.6 Magnesium 2.0 Total Bilirubin 0.90 AST TNP ALT 86 H Alkaline Phosphatase 57 Total Creatine Kinase 2650 H CK-MB (CK-2) Troponin I 13.23 H* Total Protein 5.9 L Albumin 3.7 Globulin 2.2 Albumin/Globulin Ratio 1.7 Triglycerides Cholesterol LDL Cholesterol HDL Cholesterol Lipase TSH Cortisol Urine Color Urine Appearance Urine pH Ur Specific [place] Urine Protein Urine Ketones Urine Blood Urine Nitrate Urine Bilirubin Urine Urobilinogen Ur Leukocyte Esterase Urine WBC (Auto) Urine RBC (Auto) Calcium Oxalate Crystal Amorphous Crystals Urine Bacteria Hyaline Casts Granular Casts Urine Sperm Urine Glucose Blood Type Antibody Screen 12/15/16 12/15/16 12/15/16 04:15 04:20 05:15 WBC RBC Hgb Hct MCV MCH MCHC RDW Plt Count MPV Neut % (Auto) Lymph % (Auto) Ness % (Auto) Eos % (Auto) Baso % (Auto) Absolute Neuts (auto) Absolute Lymphs (auto) Absolute Monos (auto) Absolute Eos (auto) Absolute Basos (auto) Absolute Nucleated RBC Nucleated RBC % INR (Anticoag Therapy) APTT Fibrinogen D-Dimer, Quantitative Patient Temperature ABG pH 7.21 L ABG pH (Temp Correct) ABG pCO2 27 L ABG pCO2 (Temp Corrct ABG pO2 190 H ABG pO2 (Temp Correct ABG HCO3 12.8 L ABG O2 Saturation 98.6 H ABG Base Excess -15.6 L Respiration Rate Ventilator Type Vent Mode FiO2 Inspiratory Time PEEP Pressure Support Pressure Control EPAP IPAP BiPAP Sodium Potassium 5.2 H Chloride Carbon Dioxide Anion Gap BUN Creatinine Est GFR ( Amer) Est GFR (Non-Af Amer) BUN/Creatinine Ratio Glucose POC Glucose (mg/dL) Lactic Acid Calcium Phosphorus Magnesium Total Bilirubin AST 163 H ALT Alkaline Phosphatase Total Creatine Kinase CK-MB (CK-2) Troponin I Total Protein Albumin Globulin Albumin/Globulin Ratio Triglycerides Cholesterol LDL Cholesterol HDL Cholesterol Lipase TSH 1.21 Cortisol Urine Color Urine Appearance Urine pH Ur Specific [place] Urine Protein Urine Ketones Urine Blood Urine Nitrate Urine Bilirubin Urine Urobilinogen Ur Leukocyte Esterase Urine WBC (Auto) Urine RBC (Auto) Calcium Oxalate Crystal Amorphous Crystals Urine Bacteria Hyaline Casts Granular Casts Urine Sperm Urine Glucose Blood Type Antibody Screen 12/15/16 06:15 WBC RBC Hgb Hct MCV MCH MCHC RDW Plt Count MPV Neut % (Auto) Lymph % (Auto) Ness % (Auto) Eos % (Auto) Baso % (Auto) Absolute Neuts (auto) Absolute Lymphs (auto) Absolute Monos (auto) Absolute Eos (auto) Absolute Basos (auto) Absolute Nucleated RBC Nucleated RBC % INR (Anticoag Therapy) APTT Fibrinogen D-Dimer, Quantitative Patient Temperature ABG pH ABG pH (Temp Correct) ABG pCO2 ABG pCO2 (Temp Corrct ABG pO2 ABG pO2 (Temp Correct ABG HCO3 ABG O2 Saturation ABG Base Excess Respiration Rate Ventilator Type Vent Mode FiO2 Inspiratory Time PEEP Pressure Support Pressure Control EPAP IPAP BiPAP Sodium Potassium Chloride Carbon Dioxide Anion Gap BUN Creatinine Est GFR ( Amer) Est GFR (Non-Af Amer) BUN/Creatinine Ratio Glucose POC Glucose (mg/dL) 143 H Lactic Acid Calcium Phosphorus Magnesium Total Bilirubin AST ALT Alkaline Phosphatase Total Creatine Kinase CK-MB (CK-2) Troponin I Total Protein Albumin Globulin Albumin/Globulin Ratio Triglycerides Cholesterol LDL Cholesterol HDL Cholesterol Lipase TSH Cortisol Urine Color Urine Appearance Urine pH Ur Specific [place] Urine Protein Urine Ketones Urine Blood Urine Nitrate Urine Bilirubin Urine Urobilinogen Ur Leukocyte Esterase Urine WBC (Auto) Urine RBC (Auto) Calcium Oxalate Crystal Amorphous Crystals Urine Bacteria Hyaline Casts Granular Casts Urine Sperm Urine Glucose Blood Type Antibody Screen Imaging: cxr 12/14- ett high, no infitlrate/effusion, hyperinflated lungs it appears ct head - neg for acute process. cxr 12/15 - ett above toya; right small pleural effusion +/- right base atelectasis/consoli Assessment: 61y M with history of smoking; brought in by EMS for out of hospital cardiac arrest, VFib arrest, with transient THA inferiorly and h/o chest pain for 1 week. Noted to have possible CVA vs severe anoxic injury in ER , holding on cardiac catheterization. -VF cardiac arrest -Transient ST elevation, inferiorly, suspected STEMI -Acute Hypoxic Respiratory Failure -Hypothermia protocol -Encephelopathy, suspected hypoxic-ischemic encephelopathy vs CVA during arrest -tobacco use history Plan: Neuro- cont hypothermia; limited neuro exam. on propofol and versed, lower versed this morning. not much moving, no gap/corneal, pinpoint pupils+. going for CT head this morning. target temp 25C. no seizure activity noted as of now. CVS- remains on levophed, similiar dosing as yesterday. now bradycardic, from hypothermia, but no further hemodyn compromise, so no dopamine added. K okay. No VT/VF noted, on amio for VF during arrest, will complete and monitor off then. no BB at this time. on Asa/statin via ngt. ECHO performed and pending official read, noted bedside RV dilated. Trop peaked at 21. Repeat EKG now. d- dimer elevated. Will send for stat CTA chest for r/o PE. Has smoking history, unclear if long standing RV dysfunction also if underlying lung disease. Resp- iintubated, CXR with small new effusion. on 70% fio2. ABG reviewed overnight, acidotic but Bicarb on abg not matching serum Bicarb measured on blood work. repeat abg and vbg now. bronchodilators prn. no steroids indicated. d-dimer elevated, for CTA this morning of chest. no secretions from lungs. WBC elevated, hazy right base, will add zosyn for aspiration coverage. ID- leukocytosis 16k, reactive vs aspiration? hypothermic. Will empirically cover for aspiration for now given new right base haziness and critical illness. sputum culture to be sent if any. GI- NPO. NGT in place. PPI prophylaxis Renal- Cr 0.9, making some urine. on IVF NS 100cc/hour. cont IVF. no edema noted. for CTA with contrast today. K okay, noted 5.2, no acidosis on BMP. repeat BMP at 12. chen in place Heme- hg okay. plt okay. ASA. monitor for bleeding and plt dysfunction while hypothermia ongoing. Endo- insulin as needed, change fingerstick to q4h. BS running mid 100s. Musculsk- pressure ulcer proph. Wounds- none DVT prophylaxis: heparin sq GI prophylaxis: PPI iv Central Line: right fem Arterial Line: right fem Chen Cathetor: yes Disposition: ICU for cardiac arrest, resp failure, shock, hypothermia Code Status: full code Total Critical Care time is 45 minutes, excluding procedures/teaching Paul Ybarra MD [employer] (Electronically Signed)
[2016-12-15] MEDS ORDERED: Zosyn per Pharmacy* NOTE FOLLOW UP SCH (09:00)
[2016-12-15 09:07] LABS: PH Temp Corrected 7.27 (7.35-7.45)
[2016-12-15] MEDS ORDERED: Iohexol 350* (CONTRAST) 500 ML MDV IV SCH (09:08)
[2016-12-15 09:13] LABS: Venous Bicarbonate HCO3 18.2 mmol/L (24-28)
[2016-12-15] MEDS ORDERED: DOBUTamine 2000 MCG/ML IVPREMX 500 MG/250 ML BAG IV ONE (09:31)
[2016-12-15] MEDS: Chlorhexidine MOUTHWASH 0.12%* 15 ML UDC TOPICAL SCH ×4 (09:36→22:30)
[2016-12-15] MEDS: DOBUTAMINE DRIP IV SCH (09:46)
[2016-12-15] MEDS: Sodium Bicarbonate 8.4% IV* 75 MEQ in D5W 1000 ML BAG* 1,000 ML IVPB SCH ×2 (09:55→23:42)
[2016-12-15] MEDS ORDERED: DoBUTamine INJ* 500 MG in D5W 100 ML BAG* 60 ML IV SCH (10:00)
--- NOTE | 2016-12-15 10:09 | ECHO ---
Patient: SHEYLA AMANDA [facility] Rec#: [id number] : 1955 Date: 12/15/2016 Age: 61y Height: 177.8 cm / 70.0 in Weight: 79.83 kg / 175.9 lbs Sex: M BSA: 1.98 Room#: [facility] Admit Date#: 12/14/2016 Type: Inpatient Referring: Paul Ybarra Reading: Pierce Genao MD Teaching Assistant[facility] Indication: Cardiac arrest BP: 101/67 HR: 61 Rhythm: NSR Findings History: VF cardiac arrest, smoker, acute hypoxic respiratory failure, hypothermic protocol, patient is sedated, intubated, and mechanically intubated. Technical Comments: The study is technically difficult. The study is technically limited due to poor parasternal windows. The study is technically limited due to the patient's smoking history. The study is technically limited due to patient being intubated and on a ventilator. Completed at 0850. Left Ventricle: The left ventricular chamber size is normal. Moderate concentric left ventricular hypertrophy is observed. There is global hypokinesis of the left ventricle with minor regional variation. There is severely decreased left ventricular systolic function. The estimated ejection fraction is 25-30%. There is septal flattening of the interventricular septum consistent with right ventricular volume or pressure overload. Abnormal left ventricular diastolic function is observed. There is an E to A reversal in the mitral valve flow pattern suggestive of diastolic dysfunction. Left Atrium: The left atrial chamber size is normal. Right Ventricle: The right ventricle is moderate to severely dilated. The right ventricular global systolic function is moderately reduced. Right Atrium: The right atrium is moderately dilated. Aortic Valve: The aortic valve is trileaflet. The aortic valve leaflets are mildly thickened. There is no evidence of aortic regurgitation. There is no evidence of aortic stenosis. Mitral Valve: The mitral valve leaflets are mildly thickened. There is a trace of mitral regurgitation. There is no evidence of mitral stenosis. Tricuspid Valve: The tricuspid valve leaflets are normal. There is trace to mild tricuspid regurgitation. Unable to estimate the right ventricular systolic pressure. There is no tricuspid stenosis. Pulmonic Valve: The pulmonic valve structure is not well visualized. Pericardium: There is no significant pericardial effusion. Aorta: There is no dilatation of the ascending aorta. There is mild dilatation of the aortic arch. The aortic root is normal in size. Pulmonary Artery: The main pulmonary artery is not well visualized. Venous: Unable to accurately comment on the size collapsibility of the IVC as the patient in known to be on mechanical ventilation. Conclusions The study is technically difficult. The study is technically limited due to poor parasternal windows. The study is technically limited due to the patient's smoking history. The study is technically limited due to patient being intubated and on a ventilator. Completed at 0850. Moderate concentric left ventricular hypertrophy is observed. There is severely decreased left ventricular systolic function. The estimated ejection fraction is 25-30%. There is septal flattening of the interventricular septum consistent with right ventricular volume or pressure overload. The right ventricle is moderate to severely dilated. The right ventricular global systolic function is moderately reduced. The right atrium is moderately dilated. There is a trace of mitral regurgitation. There is trace to mild tricuspid regurgitation. Unable to estimate the right ventricular systolic pressure. There is mild dilatation of the aortic arch. Compared to limited study from 12/14/2016 there has been significant decrease to LV systolic function (LVEF was 55%). Measurements Name Value Normal Range RVIDd (AP) 2D 3.38 cm (0.9 - 2.6) RVDdMajor (2D) 6.8 cm (2.2 - 4.4) RAd ISD 4CH 5.6 cm (3.4 - 4.9) RA (A4C)W 6.3 cm (2.9 - 4.6) IVSd (2D) 1.4 cm (0.6 - 1) LVPWd (2D) 1.4 cm (0.6 - 1) LVIDd (2D) 3.8 cm (3.6 - 5.4) LVIDs (2D) 3 cm - LV FS (2D) 21 % (25 - 45) EF Teichholz (2D) 42 % - Aortic Annulus 2 cm (1.4 - 2.6) Ao root diameter (2D) 2.9 cm (2.1 - 3.5) Ascending Ao 3 cm (2.1 - 3.4) Aortic arch 3.6 cm (1.8 - 3.4) LA dimension (AP) 2D 2.9 cm (2.3 - 3.8) LAd ISD 4CH 4.7 cm (2.9 - 5.3) LA ISD 4CH W 3.6 cm (2.5 - 4.5) Name Value Normal Range LA ESV SP 4CH (A/L) 21 ml - LA ESV SP 2CH (A/L) 39 ml - LA ESV BP (A/L) 33 ml - LA ESV BP (A/L) index 16 ml/m2 - LA ESV SP 4CH (MOD) 20 ml - LA ESV SP 2CH (MOD) 36 ml - Name Value Normal Range MV E-wave Vmax 0.24 m/sec - MV deceleration time 263.2 msec - MV A-wave Vmax 0.49 m/sec - MV E:A ratio 0.48 ratio - LV septal e' Vmax 0.05 m/sec - LV lateral e' Vmax 0.06 m/sec - LV E:e' septal ratio 4.8 ratio - LV E:e' lateral ratio 4 ratio - Name Value Normal Range AV Vmax 0.89 m/sec - AV VTI 13.8 cm - AV peak gradient 3.15 mmHg - AV mean gradient 1.79 mmHg - LVOT Vmax 0.59 m/sec - LVOT VTI 10.6 cm - LVOT peak gradient 1.39 mmHg - LVOT mean gradient 0.84 mmHg - DENNIS Vmax 0.71 m/sec - Name Value Normal Range TR Vmax 1.9 m/sec - TR peak gradient 14 mmHg - IVC diameter 3.3 cm - Name Value Normal Range PV Vmax 0.63 m/sec - PV peak gradient 1.57 mmHg -
[2016-12-15] MEDS: Meperidine SYRINGE* 50 MG/ML IV PRN ×4 (11:01→22:27)
--- NOTE | 2016-12-15 11:55 | RAD ---
INDICATION: Status post cardiac arrest COMPARISON: None. TECHNIQUE: Contiguous axial sections of the brain were obtained from the skull base to the vertex without contrast. FINDINGS: The ventricles, cisterns and sulci are within normal limits. The willingham-white matter differentiation is adequately maintained and there is no sulcal effacement. No significant focal abnormality or mass effect is present. There is no evidence for intracranial hemorrhage. No significant focal osseous abnormality is present. The paranasal sinuses are adequately aerated. There is again seen opacification of the hypoplastic right mastoid air cells similar to the prior CT examination. IMPRESSION: No acute intracranial abnormality.
--- NOTE | 2016-12-15 12:07 | RAD ---
INDICATION: Status post cardiac arrest, elevated the d-dimer evaluate for pulmonary embolism. COMPARISON: Comparison is made with a prior chest x-ray study from December 15, 2016. TECHNIQUE: A CT angiogram of the chest was performed with intravenous following intravenous injection of 79 ml of Omnipaque 350 nonionic contrast. Contiguous axial sections were obtained from the lung apices through the lung bases. Images were reconstructed in the coronal and sagittal planes. FINDINGS: There is relatively homogeneous opacification of the pulmonary arteries. There is a focal intraluminal filling defect in a right upper lobe segmental and subsegmental artery branches most consistent with pulmonary emboli. No other intraluminal filling defects are noted. The heart is within normal limits in size. No pericardial effusion is present. The thoracic aorta is normal in caliber and demonstrates homogeneous contrast opacification. No significant enlarged mediastinal or hilar lymph nodes are seen. There is a small right pleural effusion and dependent bilateral lower lobe infiltrates suggestive of atelectasis less likely pneumonia. No pneumothorax is seen. There are tracheostomy and nasogastric tubes present. No significant focal osseous abnormality is seen. The results of this exam were called to the patient's nurse. IMPRESSION: 1. RIGHT UPPER LOBE PULMONARY EMBOLI INVOLVING SEGMENTAL AND SUBSEGMENTAL ARTERY BRANCHES. 2. SMALL RIGHT PLEURAL EFFUSION AND MILD DEPENDENT BILATERAL LOWER LOBE INFILTRATES SUGGESTIVE OF ATELECTASIS.
[2016-12-15 12:30] LABS: Anion Gap 5 mmol/L (2-11); BUN/Creatinine Ratio 24.7 (8-20); Blood Urea Nitrogen 21 mg/dL (6-24); CO2 Carbon Dioxide 23 mmol/L (22-32); Calcium 7.8 mg/dL (8.6-10.3); Chloride 108 mmol/L (101-111); EGFR African American 118.7 (>60); EGFR Non-African American 92.3 (>60); Glucose 149 mg/dL (70-100); Sodium 136 mmol/L (133-145)
[2016-12-15 12:42] LABS: Troponin I 12.49 ng/mL (<0.04)
[2016-12-15 12:49] LABS: Creatine Kinase 2087 U/L (10-223)
[2016-12-15] MEDS ORDERED: Thiamine IV* 100 MG/ML 2 ML VIAL IV ONE (14:25)
[2016-12-15] MEDS ORDERED: Folic Acid IV* 1 MG/0.2 ML SYRINGE IV SCH (15:00)
[2016-12-15 15:40] LABS: Patient Temp ABG 35.1 C
[2016-12-15 15:48] LABS: PH Temp Corrected 7.36 (7.35-7.45)
[2016-12-15] MEDS: FOLIC ACID IV SCH (16:20)
[2016-12-15] MEDS: Atorvastatin* 80 MG TAB PO SCH (17:25)
[2016-12-15] MEDS: Midazolam PREMIX BAG 1 MG/ML* 100 MG/100 ML BAG IV SCH (20:04)
[2016-12-15 20:25] LABS: BUN/Creatinine Ratio 25.4 (8-20); Calcium 7.8 mg/dL (8.6-10.3); EGFR African American 180.8 (>60); EGFR Non-African American 140.6 (>60); Potassium 3.4 mmol/L (3.5-5.0)
[2016-12-15] MEDS ORDERED: Potassium Chloride LIQUID* 20 MEQ PACKET PO ONE (20:44)
[2016-12-15] MEDS ORDERED: Potassium Chloride LIQUID* 20 MEQ PACKET G TUBE ONE (20:44)
--- NOTE | 2016-12-15 23:38 | PN ---
NEUROLOGY PROGRESS NOTE: DATE OF FOLLOWUP: 12/15/16 LOCATION: The patient is in the ICU. OVERNIGHT EVENTS: No acute overnight events. Dr. Ybarra tells me that when the patient arrived in the ICU yesterday, he was moving everything, though still moving his right upper extremity less than his other extremities. He has been undergoing the cooling protocol and is on Versed and propofol to prevent shivering. In addition, he is on a dobutamine drip. I was contacted by Dr. Genao last night who was wondering about timing in terms of his possible neurologic injury if he were to need to go to the [facility] materials s[facility] and we had agreed to repeat a CT scan this morning of his brain. There has been no witnessed seizure activity. Dr Ybarra spoke with family who indicated he is a known smoker and used to be a heavy drinker, though it sounds like he has been distant from family for some time so the true status of his alcohol use is uncertain. MEDICATIONS: 1. Amiodarone drip. 2. Aspirin 81 mg daily. 3. Atorvastatin 80 mg. 4. BuSpar 60 mg p.r.n. shivering. 5. Chlorhexidine mouthwash. 6. Dobutamine dip. 7. Demerol 25 mg p.r.n. shivering. 8. Versed drip 1 mg per hour. 9. Levophed. 10. Protonix. 11. Zosyn. 12. Propofol 30 mcg/kg per minute. PHYSICAL EXAMINATION: Vital Signs: Temperature 95.2, blood pressure 101/58, heart rate 63, oxygen saturation is 97% on 28% FiO2. He was examined on propofol and Versed secondary to being on cooling protocol. On general examination, he is lying, intubated in his hospital bed. He does not respond to voice or to sternal rub. His pupils are pinpoint. VORs are negative. Corneals are absent. He is not reportedly gagging when suctioned. On motor examination, he has increased tone in his upper and lower extremities with a spastic catch. He does not withdraw to pain in his upper extremities, but in his lower extremities, he is noted to flex at the knee in the extremity receiving a noxious stimulation and the contralateral lower extremity internally rotates. His left toe is upgoing, the right toe is mute. LABORATORY DATA: He underwent a transthoracic echocardiogram, which showed an ejection fraction of 25% to 30% with global hypokinesis of the left ventricle and moderate concentric LVH. There was septal flattening of the interventricular septum consistent with right ventricular volume or pressure overload. There is suggestion of diastolic dysfunction. The right ventricle is moderate to severely dilated and the right ventricular function is moderately reduced. Right atrium is moderately dilated. He underwent a chest CTA, which shows right upper lobe pulmonary emboli involving segmental and subsegmental branches. There is also a small right pleural effusion and mild dependent bilateral lower lobe infiltrates suggestive of atelectasis. A brain CT was repeated this morning and personally reviewed and shows no obvious areas of hypodensity and no obvious cerebral edema. I question whether there is some calcification in the petrous portion of the left internal carotid artery, which is likely mural calcification. There are no obvious dense arterial signs. IMPRESSION: Stephane Moncada is a 61-year-old man with a history of smoking and past alcohol abuse, who presented with a witnessed cardiac arrest and is undergoing the cooling protocol. There was concern yesterday for a possible left hemispheric stroke based on decreased movement of his right upper extremity. He was down for approximately 15 minutes prior to return of circulation and it is possible that he has suffered diffuse anoxic injury. If he does have a stenotic left internal carotid artery, it is possible that he could have had some preferential ischemia in the left MCA territory in the setting of hypoperfusion. At this point, he is known to have suffered a myocardial infarction as well as having pulmonary emboli. I spoke with Dr. Ybarra regarding initiation of heparin drip for these prior 2 problems in the setting of his neurologic status. I do not think that there is a clear contraindication to starting him on a heparin drip given that there is no massive stroke or cerebral edema that is noted on his CT scan, which was repeated approximately 18 hours after his collapse. This will be started without a bolus and he will be closely monitored for any changes in his neurologic status. Furthermore, given his history of potential alcohol abuse, I think he should be started on IV thiamine and we discussed this as well. We considered getting an MRI scan of the brain to further decide whether there has been areas of ischemia, but he is unable to undergo that right now given the number of drips that he has currently running. Tomorrow, he will be rewarmed and hopefully at that time will be able to begin to get a better sense of his neurologic status. [id number]/CPS #: [id number] KATINA
[2016-12-16] MEDS: Chlorhexidine MOUTHWASH 0.12%* 15 ML UDC TOPICAL SCH ×6 (01:56→21:21)
[2016-12-16] MEDS: Meperidine SYRINGE* 50 MG/ML IV PRN (02:48)
[2016-12-16] MEDS: Propofol* 1000 MG (10 MG/ML 100 ml) @ Per Protocol (in ICU Pyxis) IV SCH ×4 (04:45→20:21)
[2016-12-16 05:30] LABS: Hematocrit 40 % (42-52); Hemoglobin 13.7 g/dl (14.0-18.0); Mean Corpuscular HGB Conc 34 g/dl (31-36); Mean Corpuscular Hemoglobin 34 pg (27-31); Mean Corpuscular Volume 101 fL (80-94); Mean Platelet Volume 9 um3 (7.4-10.4); Red Blood Count 3.98 10^6/ul (4.0-5.4); Red Cell Distribution Width 14 % (10.5-15); White Blood Count 17.3 10^3/ul (3.5-10.8)
[2016-12-16 05:45] LABS: Albumin 3.1 g/dL (3.2-5.2); BUN/Creatinine Ratio 20.3 (8-20); Calcium 7.9 mg/dL (8.6-10.3); EGFR African American 164.6 (>60); Magnesium 1.8 mg/dL (1.9-2.7); Phosphorus 2.1 mg/dL (2.5-5.0); Potassium 3.5 mmol/L (3.5-5.0); Total Bilirubin 0.7 mg/dL (0.2-1.0); Total Protein 5.1 g/dL (6.4-8.9)
[2016-12-16] MEDS: Heparin VIAL(*) 5000 UNITS/ML VIAL (FIVE THOUSAND) SUBCUT SCH (06:19)
[2016-12-16] MEDS: FOLIC ACID IV SCH (07:24)
[2016-12-16] MEDS: Pantoprazole IV* 40 MG IV SCH (07:24)
[2016-12-16] MEDS ORDERED: Dextrose 50% Syringe 50 ML* 25 GM/50 ML SYRINGE ONE (07:46)
[2016-12-16] MEDS ORDERED: Dextrose 50% VIAL 50 ml IV PRN (07:48)
--- NOTE | 2016-12-16 08:16 | RAD ---
INDICATION: Patient desaturated on ventilation. COMPARISON: Comparison is made with a prior chest x-ray study from December 15, 2016. TECHNIQUE: A portable view of the chest was obtained. FINDINGS: The heart is moderately enlarged and unchanged from the prior exam. There is made of an endotracheal tube. The catheter tip projects at the level of the clavicular heads. There is a nasogastric tube which enters normal course. There is a small a moderate size right pleural effusion and basilar infiltrate which appear to have progressed slightly. There is also a small left pleural effusion. IMPRESSION: SMALL TO MODERATE SIZE RIGHT PLEURAL EFFUSION AND BASILAR INFILTRATE DEMONSTRATING SLIGHT PROGRESSION.
[2016-12-16] MEDS ORDERED: Heparin DRIP 25,000 UNITS(*) 25,000 UNITS/500 ML BAG IV SCH (08:30)
[2016-12-16] MEDS: Dexmedetomidine* 200 MCG in NS 0.9% 50 ML* 48 ML IVPB SCH ×2 (08:37→20:37)
[2016-12-16 08:43] LABS: Hematocrit 40 % (42-52); Hemoglobin 13.6 g/dl (14.0-18.0); Mean Corpuscular HGB Conc 34 g/dl (31-36); Mean Corpuscular Hemoglobin 34 pg (27-31); Mean Corpuscular Volume 101 fL (80-94); Mean Platelet Volume 8 um3 (7.4-10.4); Red Blood Count 3.98 10^6/ul (4.0-5.4); Red Cell Distribution Width 14 % (10.5-15); White Blood Count 15.6 10^3/ul (3.5-10.8)
[2016-12-16] MEDS ORDERED: Heparin VIAL(*) 5000 UNITS/ML VIAL (FIVE THOUSAND) IV SCH (09:00)
[2016-12-16 09:10] LABS: Patient Temp ABG 36.6
[2016-12-16 09:17] LABS: PH Temp Corrected 7.41 (7.35-7.45)
--- NOTE | 2016-12-16 09:55 | ECHO ---
Patient: SHEYLA AMANDA [facility] Rec#: [id number] : 1955 Date: 12/16/2016 Age: 61y Height: 178 cm / 70.1 in Weight: 92.9 kg / 204.8 lbs Sex: M BSA: 2.11 Room#: [facility] Admit Date#: 12/14/2016 Type: Inpatient Referring: Paul Ybarra Reading: Pierce Genao MD [place] Alarm Inspector: Lani Lay RD Transthoracic Echocardiogram Indication: STEMI, Cardiac arrest BP: 112/70 HR: 85 Rhythm: NSR Findings History: VF cardiac arrest, smoker, acute hypoxic repiratory failure, hypothermic protocol, patient is sedated, intubated, and mechanically ventilated. Technical Comments: The study is technically difficult. The study is technically limited due to patient body habitus. The study is technically limited due to patient being intubated and on a ventilator. Completed at 0950. Left Ventricle: The left ventricular chamber size is normal. Moderate concentric left ventricular hypertrophy is observed. There is a focal wall motion abnormality present.There may be some mild hypokinesis of the inferior wall. Left ventricular systolic function is at the lower limits of normal. Visually estimated LVEF is 50 %. Abnormal left ventricular diastolic function is observed. There is an E to A reversal in the mitral valve flow pattern suggestive of diastolic dysfunction. Aortic Valve: The aortic valve is trileaflet. The aortic valve leaflets are mildly thickened. There is no evidence of aortic regurgitation. There is no evidence of aortic stenosis. Mitral Valve: The mitral valve leaflets are mildly thickened. There is a trace of mitral regurgitation. There is no evidence of mitral stenosis. Conclusions Moderate concenctric left ventricular hypertrophy. There may be some mild hypokinesis of the inferior wall. Left ventricular systolic function is at the lower limits of normal. Visually estimated LVEF is 50 %. There is a trace of mitral regurgitation. Compared to report of study from 12/15/2016 the overall LV systolic function is significantly better (was 25-30%). Measurements Name Value Normal Range AV Vmax 1.28 m/sec - AV VTI 27.62 cm - AV peak gradient 6.58 mmHg - AV mean gradient 3.52 mmHg - LVOT Vmax 1.19 m/sec - LVOT VTI 24.14 cm - LVOT peak gradient 5.65 mmHg - LVOT mean gradient 3.34 mmHg -
--- NOTE | 2016-12-16 10:00 | PN ---
Progress Note - Progress Note Date of Service: 12/16/16 Note: Progress Note - Critical Care 24 hour events: -intubated; on and levo now -woke up and moving more; followed commands when asked to move each ext. -on 65% fio2 due to some desat overnight; increased secretions from ETT noted -making urine -labs reviewed Tele: NSR Vitals: Vital Signs Temp 97.9 F 12/16/16 09:23 Pulse 82 12/16/16 09:23 Resp 16 12/16/16 09:45 BP 92/60 12/16/16 09:23 Pulse Ox 96 12/16/16 09:23 Intake & Output 12/15/16 12/16/16 12/16/16 18:59 06:59 18:59 Intake Total 1300.5 2002.7 Output Total 1114 889 120 Balance 186.5 1113.7 -120 Weight 204 lb 12.951 oz Intake: IV Fluids 655 736 NS (0.9%) 655 736 IVPB 75 100 NS (0.9%) 75 100 Medicated IV 524.5 1166.7 Bicarb 489 CC - Amiodarone 109 CC - Norepinephrine/ 267 293 Levophed CC - Propofol/Diprivan 117.5 300 dobutamine 31 52.5 midazolam 32.2 IV Narcotic Infusion 1 Versed 1 Tube Feeding 45 Output: NG Tube Drainage Amount 315 400 Chen 799 489 120 O2/Vent: AC 16/500/+5/100% Infusions: propofol, levophed, versed, precedex, dobutamine 2.5 Current Medications: Albuterol (Albuterol (2.5 Mg) 0.5 % Conc) 2.5 mg INH Q4HR PRN PRN Reason: WHEEZING Aspirin (Aspirin Low Dose Tab*) 81 mg PO DAILY [facility] Last Admin: 12/15/16 08:33 Dose: 81 mg Atorvastatin Calcium (Lipitor*) 80 mg PO 1700 [facility] Last Admin: 12/15/16 17:25 Dose: 80 mg Buspirone HCl (Buspar Tab*) 60 mg NG TUBE Q6H PRN PRN Reason: SHIVERING Chlorhexidine Gluconate (Peridex Mouth Wash 0.12%*) 15 ml TOPICAL Q4HR [facility] Last Admin: 12/16/16 09:36 Dose: 15 ml Dextrose (Dextrose 50% Vial 50 Ml*) 50 ml IV Q1HR PRN PRN Reason: FS < 60 Heparin Sodium (Porcine) (Heparin Flush Picc/Ml/Cvc(*)) 0 ml FLUSH 0600,1800 GABO PRN Reason: Protocol Last Admin: 12/16/16 06:12 Dose: Not Given Heparin Sodium (Porcine) (Heparin Vial(*)) 0 units IV .PER PROTOCOL GABO PRN Reason: Protocol Amiodarone HCl (Nexterone 360 Mg/200 Ml Ivpremix*) 360 mg in 200 mls @ 16.666 mls/hr IV .PER PROTOCOL GABO PRN Reason: 0.5 MG/MIN Last Admin: 12/15/16 03:48 Dose: 16.666 mls/hr Cisatracurium Besylate 100 mg/ (Sodium Chloride) 250 mls @ 60 mls/hr IVPB .( Initial Rate) GABO PRN Reason: 5 MCG/KG/MIN Midazolam HCl (Versed Premix Bag 1 Mg/Ml*) 100 mg in 100 mls @ 0 mls/hr IV .Q24HR GABO PRN Reason: As Directed Last Admin: 12/15/16 20:04 Dose: 3 mls/hr Norepinephrine Bitartrate (Levophed 16 Mcg/Ml Premix Bag*) 4,000 mcg in 250 mls @ 18.75 mls/hr IV .INITIAL RATE GABO; 5 MCG/MIN PRN Reason: Protocol Last Admin: 12/15/16 19:23 Dose: 18.75 mls/hr Propofol (Diprivan*) 100 mls @ 0 mls/hr IV .(Initial Rate) GABO; 0 MCG/KG/MIN PRN Reason: Protocol Last Admin: 12/16/16 08:59 Dose: 26.7 mls/hr Piperacillin Sod/Tazobactam (Sod 3.375 gm/ Sodium Chloride) 100 mls @ 25 mls/ hr IVPB Q8H [facility] Last Admin: 12/16/16 07:24 Dose: 25 mls/hr Dobutamine HCl/Dextrose (Dobutamine 2000 Mcg/Ml Ivpremx*) 500 mg in 250 mls @ 6.923 mls/hr IV .Initial Rate GABO; 2.5 MCG/KG/MIN PRN Reason: Protocol Last Admin: 12/15/16 09:46 Dose: 6.923 mls/hr Folic Acid 1 mg/ IV Solution 0.2 mls @ 0 mls/hr IV DAILY GABO PRN Reason: As Directed Last Admin: 12/16/16 07:24 Dose: 1 mls/hr Dexmedetomidine HCl 200 mcg/ (Sodium Chloride) 50 mls @ 2.32 mls/hr IVPB Q21H GABO PRN Reason: 0.1 MCG/KG/HR Last Admin: 12/16/16 08:37 Dose: 2.32 mls/hr Heparin Sodium/Dextrose (Heparin Drip 25,000 Units(*)) 25,000 units in 500 mls @ 0 mls/hr IV .NO INITIAL BOLUS GABO; As Directed PRN Reason: Protocol Last Admin: 12/16/16 08:51 Dose: 30 mls/hr Iohexol (Omnipaque 350 (Contrast)-) 79 ml IV ONCE GABO Stop: 12/17/16 09:07 Last Admin: 12/15/16 11:25 Dose: 79 ml Meperidine HCl (Demerol Syringe*) 25 mg IV ONCE PRN PRN Reason: PAIN/INFLAMMATION Last Admin: 12/15/16 18:14 Dose: 25 mg Meperidine HCl (Demerol Syringe*) 25 mg IV Q1H PRN PRN Reason: SHIVERING Last Admin: 12/16/16 02:48 Dose: 25 mg Midazolam HCl (Versed 2mg/2ml*) 2 mg IV Q1HR PRN PRN Reason: AGITATION Stop: 12/17/16 18:01 Pantoprazole Sodium (Protonix Iv*) 40 mg IV DAILY GABO Last Admin: 12/16/16 07:24 Dose: 40 mg Pharmacy Consult (Zosyn Per Pharmacy*) 1 note FOLLOW UP .ZOSYN PER PHARMACY GABO Physical Exam: General: intubated sedated Head: normocephalic, atraumatic HEENT: no pallor, no icterus, moist mucous membranes Neck: soft, supple, no jvd, no stridor CVS: bradycardic, normal rhythm, no murmur Resp: dec air entry bilaterally Abdomen: soft, nondistended, bowel sounds present Ext: pulses+, warm, no edema Skin: intact, no breakdown, no dryness Neuro: intubated, sedated but awakening on my AM exam; moves all ext, pupils reactive bilaterally, able to follow and move each ext as commanded. no facial droop. not able to dispatch clerk and follow all commands, eyes semi open. Labs: Laboratory Results - last 24 hr 12/15/16 12/15/16 12/15/16 04:15 04:15 12:03 WBC RBC Hgb Hct MCV MCH MCHC RDW Plt Count MPV Neut % (Auto) Lymph % (Auto) [place] % (Auto) Eos % (Auto) Baso % (Auto) Absolute Neuts (auto) Absolute Lymphs (auto) Absolute Monos (auto) Absolute Eos (auto) Absolute Basos (auto) Absolute Nucleated RBC Nucleated RBC % INR (Anticoag Therapy) APTT Patient Temperature ABG pH ABG pH (Temp Correct) ABG pCO2 ABG pCO2 (Temp Corrct ABG pO2 ABG pO2 (Temp Correct ABG HCO3 ABG O2 Saturation ABG Base Excess Sodium 136 Potassium 4.0 Chloride 108 Carbon Dioxide 23 Anion Gap 5 BUN 21 Creatinine 0.85 Est GFR ( Amer) 118.7 Est GFR (Non-Af Amer) 92.3 BUN/Creatinine Ratio 24.7 H Glucose 149 H POC Glucose (mg/dL) Hemoglobin A1c 5.4 Lactic Acid Calcium 7.8 L Phosphorus Magnesium Total Bilirubin AST ALT Alkaline Phosphatase Total Creatine Kinase 2087 H CK-MB (CK-2) 469.0 H > 302.0 H Troponin I 12.49 H* Total Protein Albumin Globulin Albumin/Globulin Ratio 12/15/16 12/15/16 12/15/16 12:03 15:30 16:13 WBC RBC Hgb Hct MCV MCH MCHC RDW Plt Count MPV Neut % (Auto) Lymph % (Auto) [place] % (Auto) Eos % (Auto) Baso % (Auto) Absolute Neuts (auto) Absolute Lymphs (auto) Absolute Monos (auto) Absolute Eos (auto) Absolute Basos (auto) Absolute Nucleated RBC Nucleated RBC % INR (Anticoag Therapy) APTT Patient Temperature 35.1 c ABG pH Not Reportable ABG pH (Temp Correct) 7.36 ABG pCO2 Not Reportable ABG pCO2 (Temp Corrct 41 ABG pO2 Not Reportable ABG pO2 (Temp Correct 88 ABG HCO3 22.9 ABG O2 Saturation 98.2 H ABG Base Excess -2.5 L Sodium Potassium Chloride Carbon Dioxide Anion Gap BUN Creatinine Est GFR ( Amer) Est GFR (Non-Af Amer) BUN/Creatinine Ratio Glucose POC Glucose (mg/dL) 130 H Hemoglobin A1c Lactic Acid 1.3 Calcium Phosphorus Magnesium Total Bilirubin AST ALT Alkaline Phosphatase Total Creatine Kinase CK-MB (CK-2) Troponin I Total Protein Albumin Globulin Albumin/Globulin Ratio 12/15/16 12/16/16 12/16/16 19:55 00:18 04:10 WBC RBC Hgb Hct MCV MCH MCHC RDW Plt Count MPV Neut % (Auto) Lymph % (Auto) [place] % (Auto) Eos % (Auto) Baso % (Auto) Absolute Neuts (auto) Absolute Lymphs (auto) Absolute Monos (auto) Absolute Eos (auto) Absolute Basos (auto) Absolute Nucleated RBC Nucleated RBC % INR (Anticoag Therapy) APTT Patient Temperature ABG pH ABG pH (Temp Correct) ABG pCO2 ABG pCO2 (Temp Corrct ABG pO2 ABG pO2 (Temp Correct ABG HCO3 ABG O2 Saturation ABG Base Excess Sodium 137 Potassium 3.4 L Chloride 106 Carbon Dioxide 27 Anion Gap 4 BUN 15 Creatinine 0.59 L Est GFR ( Amer) 180.8 Est GFR (Non-Af Amer) 140.6 BUN/Creatinine Ratio 25.4 H Glucose 125 H POC Glucose (mg/dL) 89 81 Hemoglobin A1c Lactic Acid Calcium 7.8 L Phosphorus Magnesium Total Bilirubin AST ALT Alkaline Phosphatase Total Creatine Kinase CK-MB (CK-2) Troponin I Total Protein Albumin Globulin Albumin/Globulin Ratio 12/16/16 12/16/16 12/16/16 05:15 05:15 05:15 WBC 17.3 H RBC 3.98 L Hgb 13.7 L Hct 40 L MCV 101 H MCH 34 H MCHC 34 RDW 14 Plt Count 199 MPV 9 Neut % (Auto) 78.1 Lymph % (Auto) 12.8 L [place] % (Auto) 8.4 Eos % (Auto) 0.3 Baso % (Auto) 0.4 Absolute Neuts (auto) 13.6 H Absolute Lymphs (auto) 2.2 Absolute Monos (auto) 1.5 H Absolute Eos (auto) 0 Absolute Basos (auto) 0.1 Absolute Nucleated RBC 0 Nucleated RBC % 0 INR (Anticoag Therapy) 0.99 APTT Patient Temperature ABG pH ABG pH (Temp Correct) ABG pCO2 ABG pCO2 (Temp Corrct ABG pO2 ABG pO2 (Temp Correct ABG HCO3 ABG O2 Saturation ABG Base Excess Sodium 138 Potassium 3.5 Chloride 105 Carbon Dioxide 28 Anion Gap 5 BUN 13 Creatinine 0.64 L Est GFR ( Amer) 164.6 Est GFR (Non-Af Amer) 128.0 BUN/Creatinine Ratio 20.3 H Glucose 103 H POC Glucose (mg/dL) Hemoglobin A1c Lactic Acid Calcium 7.9 L Phosphorus 2.1 L Magnesium 1.8 L Total Bilirubin 0.70 AST 137 H ALT 77 H Alkaline Phosphatase 55 Total Creatine Kinase CK-MB (CK-2) Troponin I Total Protein 5.1 L Albumin 3.1 L Globulin 2.0 Albumin/Globulin Ratio 1.6 12/16/16 12/16/16 12/16/16 07:41 08:30 08:30 WBC RBC Hgb Hct MCV MCH MCHC RDW Plt Count MPV Neut % (Auto) Lymph % (Auto) [place] % (Auto) Eos % (Auto) Baso % (Auto) Absolute Neuts (auto) Absolute Lymphs (auto) Absolute Monos (auto) Absolute Eos (auto) Absolute Basos (auto) Absolute Nucleated RBC Nucleated RBC % INR (Anticoag Therapy) APTT 31.4 Patient Temperature ABG pH ABG pH (Temp Correct) ABG pCO2 ABG pCO2 (Temp Corrct ABG pO2 ABG pO2 (Temp Correct ABG HCO3 ABG O2 Saturation ABG Base Excess Sodium Potassium Chloride Carbon Dioxide Anion Gap BUN 13 Creatinine Est GFR ( Amer) Est GFR (Non-Af Amer) BUN/Creatinine Ratio Glucose POC Glucose (mg/dL) 61 L Hemoglobin A1c Lactic Acid Calcium Phosphorus Magnesium Total Bilirubin AST ALT Alkaline Phosphatase Total Creatine Kinase CK-MB (CK-2) Troponin I Total Protein Albumin Globulin Albumin/Globulin Ratio 12/16/16 12/16/16 08:30 09:00 WBC 15.6 H RBC 3.98 L Hgb 13.6 L Hct 40 L MCV 101 H MCH 34 H MCHC 34 RDW 14 Plt Count 187 MPV 8 Neut % (Auto) 81.2 Lymph % (Auto) 11.4 L [place] % (Auto) 6.9 Eos % (Auto) 0.2 Baso % (Auto) 0.3 Absolute Neuts (auto) 12.7 H Absolute Lymphs (auto) 1.8 Absolute Monos (auto) 1.1 H Absolute Eos (auto) 0 Absolute Basos (auto) 0 Absolute Nucleated RBC 0 Nucleated RBC % 0 INR (Anticoag Therapy) APTT Patient Temperature 36.6 ABG pH Not Reportable ABG pH (Temp Correct) 7.41 ABG pCO2 Not Reportable ABG pCO2 (Temp Corrct 44 ABG pO2 Not Reportable ABG pO2 (Temp Correct 71 L ABG HCO3 26.8 ABG O2 Saturation 96.8 ABG Base Excess 2.5 H Sodium Potassium Chloride Carbon Dioxide Anion Gap BUN Creatinine Est GFR ( Amer) Est GFR (Non-Af Amer) BUN/Creatinine Ratio Glucose POC Glucose (mg/dL) Hemoglobin A1c Lactic Acid Calcium Phosphorus Magnesium Total Bilirubin AST ALT Alkaline Phosphatase Total Creatine Kinase CK-MB (CK-2) Troponin I Total Protein Albumin Globulin Albumin/Globulin Ratio Imaging: cxr 12/14- ett high, no infitlrate/effusion, hyperinflated lungs it appears ct head - neg for acute process. cxr 12/15 - ett above toya; right small pleural effusion +/- right base atelectasis/consoli cxr 12/16 - ett above toya; right lower lobe consolidation+, +/- effusion CTA chest 12/15 - RUL small PEs, Right base atelectasis reviewed Assessment: 61y M with history of smoking; brought in by EMS for out of hospital cardiac arrest, VFib arrest, with transient THA inferiorly and h/o chest pain for 1 week. Noted to have possible CVA vs severe anoxic injury in ER , holding on cardiac catheterization. -VF cardiac arrest -Transient ST elevation, inferiorly, suspected STEMI -Acute Hypoxic Respiratory Failure -Cardiogenic shock -Hypothermia protocol -Encephelopathy, suspected hypoxic-ischemic encephelopathy vs CVA during arrest -tobacco use history -right lower lobe aspiration pneumonia -Right upper lobe PE Plan: Neuro- warmed this monring, now temp 36C. on propofol, off versed initially, follows commands but not fully awake. more restlessness and dyssynchrony, started precedex and versed again. discussed with neuro, will hold again for them to eval neuro status. CVS- on levo and now, levo started after versed and precedex. cont . TTE done this morning, recovered LV function to ~50-55%. discussed with cardio, if neuro states this is some improved mental status and can follow commands, likely for cardiac cath today. cont asa/statin. I Have started IV heparin, no bolus infusion. cover for DVT/[place]. May go for cath today. Resp-intubated, cont AC mode. CXr with right lower lobe infiltrate. sputum sent for culture overnight. cont zosyn iv for aspiration. no plan for extubation. cxr tomorrow. abg later today. bronchodilators prn. Note PE small RUL; cover with IV heparin, unlikely to be cause of this degree of cardiac arrest. ID- leukocytosis improving. reactive +/- aspiration. euthermic now. CXr with right lower lobe, likely aspirationi pneumonia. cont zosyn iv (day#2). sputum cx sent. GI- NPO. NGT in place. PPI prophylaxis Renal- Cr normal, making some urine. off IVF. K okay, acidosis improved. chen+ . Heme- hg okay. plt okay. ASA. starting IV heparin for DVT/[place]. monitor for bleeding and plt dysfunction. Endo- insulin as needed, change fingerstick to q4h. BS running mid 100s. hypoglycemia this AM, prn d50. Musculsk- pressure ulcer proph. Wounds- none DVT prophylaxis: heparin IV GI prophylaxis: PPI iv Central Line: right fem Arterial Line: right fem Chen Cathetor: yes Disposition: ICU for cardiac arrest, resp failure, shock, hypothermia Code Status: full code Total Critical Care time is 40 minutes, excluding procedures/teaching Paul Ybarra MD Validation Architect (Electronically Signed)
--- NOTE | 2016-12-16 11:29 | RAD ---
HISTORY: Evaluate for hypoxic injury COMPARISONS: Over February 22, 2017 TECHNIQUE: Multiple contiguous axial CT scans were obtained of the head without intravenous contrast. FINDINGS: HEMORRHAGE/INFARCT: There is no hemorrhage or acute infarct. MASSES/SHIFT: There is no mass or shift. EXTRA-AXIAL SPACES: There are no extra-axial fluid collections. SULCI AND VENTRICLES: The sulci and ventricles are normal in size and position for the patient's stated age. CEREBRUM: There are no focal parenchymal abnormalities. There is preservation of the graft with differentiation BRAINSTEM: There are no focal parenchymal abnormalities. CEREBELLUM: There are no focal parenchymal abnormalities. VESSELS: The vessels are grossly normal. PARANASAL SINUSES: The paranasal sinuses are clear. There is a right mastoid effusion. ORBITS: There is bilateral proptosis. BONES AND SOFT TISSUE: No bone or soft tissue abnormalities are noted. OTHER: None IMPRESSION: 1. NO ACUTE INTRACRANIAL PATHOLOGY. 2. RIGHT MASTOID EFFUSION. 3. BILATERAL PROPTOSIS
[2016-12-16] MEDS ORDERED: Heparin 2 UNITS/ML IVPREMIX* 2,000 ML IV ONE (12:26)
[2016-12-16] MEDS ORDERED: Iohexol 350 (CONTRAST) 200 ML MDV IV ONE ×3 (12:26→14:44)
[2016-12-16] MEDS ORDERED: Lidocaine 1% INJ* 10 MG/ML 30 ML SDV ONE (12:26)
[2016-12-16] MEDS ORDERED: Ticagrelor* 90 MG TAB PO ONE (12:49)
[2016-12-16] MEDS ORDERED: nitroGLYCERIN DRIP* 250 ML ONE (12:49)
[2016-12-16] MEDS ORDERED: Heparin(*) 1000 UNIT/ML 10 ML VIAL CATH LAB IV ONE (13:00)
[2016-12-16] MEDS ORDERED: Aspirin Low Dose CHEW TAB* 81 MG ONE ×2 (13:15→13:17)
[2016-12-16] MEDS ORDERED: Amiodarone 360 MG IVPREMIX* 0 MG/0 ML BAG IV ONE (13:20)
[2016-12-16] MEDS ORDERED: Amiodarone IV VIAL* 0 ML ONE (13:20)
[2016-12-16] MEDS ORDERED: Heparin 2 UNITS/ML IVPREMIX* 1,000 ML IV ONE (13:27)
[2016-12-16] MEDS ORDERED: Eptifibatide IV (Load dose)(*) 2 MG/ML 10 ml VIAL ONE (13:28)
[2016-12-16] MEDS ORDERED: Eptifibatide (*) 0 ML ONE (13:28)
[2016-12-16] MEDS ORDERED: Eptifibatide (*) 100 ML ONE (13:29)
[2016-12-16] MEDS ORDERED: Nitroglycerin TAB 0.4 MG* 0.4 MG TAB SL PRN (15:24)
[2016-12-16] MEDS ORDERED: NS 0.9% 1000 ML* 1,000 ML IV SCH (15:30)
[2016-12-16] MEDS: Aspirin Low Dose CHEW TAB* 81 MG PO SCH (16:09)
[2016-12-16] MEDS: DOBUTAMINE DRIP IV SCH (16:45)
[2016-12-16 16:46] LABS: Hematocrit 39 % (42-52); Mean Corpuscular HGB Conc 34 g/dl (31-36); Mean Corpuscular Hemoglobin 34 pg (27-31); Mean Corpuscular Volume 101 fL (80-94); Mean Platelet Volume 9 um3 (7.4-10.4); Red Cell Distribution Width 14 % (10.5-15); White Blood Count 14.8 10^3/ul (3.5-10.8)
--- NOTE | 2016-12-16 17:59 | RAD ---
INDICATION: Myocardial infarction, PE. 1 hour post LEFT groin access heart catheterization. COMPARISON: No relevant prior exams available on the [facility] PACS for comparison. TECHNIQUE: Vu scale, color Doppler, and spectral analysis of the deep veins of the BILATERAL lower extremities. Vessel compression, phasicity, and augmentation assessed. REPORT: The RIGHT common femoral, great saphenous, profunda femoral, femoral, popliteal, peroneal, and posterior tibial veins are patent. The LEFT superficial femoral, popliteal, peroneal, and posterior tibial veins are patent. Assessment of the LEFT common femoral vein, great saphenous vein at the confluence with the common femoral vein, and profunda femoral vein is precluded due to cardiac catheterization performed 1 hour prior to this exam. IMPRESSION: 1. No evidence for RIGHT lower extremity DVT. 2. No evidence for LEFT lower extremity DVT from the proximal segment of the superficial femoral vein distal. Assessment of the LEFT common femoral vein, great saphenous vein at the confluence with the common femoral vein, and profunda femoral vein is precluded due to cardiac catheterization performed 1 hour prior to this exam.
[2016-12-16] MEDS: Ticagrelor* 90 MG TAB PO SCH (21:21)
[2016-12-16] MEDS: Atorvastatin* 80 MG TAB PO SCH (22:45)
--- NOTE | 2016-12-16 23:00 | PN ---
PROGRESS NOTE: DATE OF FOLLOWUP: 12/16/16 OVERNIGHT EVENTS: No acute overnight events. The patient has been rewarmed to 36.6 C. His sedation was lifted this morning and he was noted to be very active and actually agitated, but moving all extremities and was able to follow commands. Dr. Genao is interested in taking the patient to the lab technologist and asked for Neurology reevaluation. MEDICATIONS: Reviewed and include: 1. Amiodarone drip. 2. Aspirin 81 mg. 3. Lipitor 80 mg daily. 4. Dexmedetomidine drip. 5. Dobutamine drip. 6. Folic acid 1 mg daily. 7. Demerol 25 mg as needed. 8. Versed drip. 9. Levophed drip. 10. Protonix. 11. Zosyn. 12. Propofol. The sedation was held for approximately half an hour before I went to evaluate the patient. PHYSICAL EXAMINATION: Vital Signs: Temperature 36.6 degrees celsius, blood pressure 114/68, heart rate 86, oxygen saturation 99% on ventilator. General Examination: He is relatively calm, though very lightly sedated. He remains intubated. His heart is in a regular rate and rhythm. Lungs: Clear anteriorly. 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 Neurologic Examination: He responds briskly to being called Mathieu, which is his middle name and apparently the name by which he goes according to his sister who was present in the room. He is able to follow commands to open and close his eyes, try to protrude his tongue despite the ET tube and squeezes on command in both upper extremities. He also wiggles his toes on command. His gaze is midline. His pupils are equal, round, and reactive from 4 to 3 mm bilaterally. He is able to direct his gaze in all directions on command. He may have had some nystagmus when looking towards the left. He blinks to threat bilaterally. There is no clear facial asymmetry. Motor Exam: He has normal bulk and tone in the upper and lower extremities. He has antigravity strength in all 4 extremities, though possibly was a little delayed in raising the right leg off the bed. His media operator strength seemed equal bilaterally. He was able to sense noxious stimulation in all 4 extremities. His reflexes were a bit brisk at the knees with cross adduction at the right knee. Toes were mute. LABORATORY DATA: CBC today is notable for a white count of 15.6, hematocrit of 40, hemoglobin of 13.6, and platelet count of 187. His blood gas showed a pH of 7.41, pO2 of 71, bicarbonate of 26.8. His chemistry panel showed creatinine of 0.64, glucose of 103, calcium of 7.9, phosphorus 2.1, magnesium 1.8, AST 137 , ALT 77, which is improved from 163 yesterday for the AST and 86 yesterday for the ALT. His albumin is 3.1 and protein is 5.1. IMPRESSION: Stephane Moncada is a 61-year-old man who had a witnessed out of hospital cardiac arrest with return of circulation within 15 minutes. On his initial presentation, there was concern for diffuse anoxic injury versus focal injury in the left hemisphere secondary to him not moving his right arm as well. Today, he appears to be overall neurologically intact with no clear focal deficits. I recommend [address] scan to see if there has been any major areas of ischemia from his cardiac event. If that is unchanged from previous, I think that the patient would be able to go to the lab technologist as per Dr. Genao today. [id number]/[facility] #: [id number] MTDD
[2016-12-17] MEDS: Propofol* 1000 MG (10 MG/ML 100 ml) @ Per Protocol (in ICU Pyxis) IV SCH ×2 (01:13→05:11)
[2016-12-17] MEDS: Dexmedetomidine* 200 MCG in NS 0.9% 50 ML* 48 ML IVPB SCH ×2 (01:14→10:42)
[2016-12-17] MEDS: Chlorhexidine MOUTHWASH 0.12%* 15 ML UDC TOPICAL SCH ×3 (04:24→09:12)
[2016-12-17 05:55] LABS: Hematocrit 36 % (42-52); Hemoglobin 12.5 g/dl (14.0-18.0); Mean Corpuscular HGB Conc 34 g/dl (31-36); Mean Corpuscular Hemoglobin 35 pg (27-31); Mean Corpuscular Volume 101 fL (80-94); Mean Platelet Volume 9 um3 (7.4-10.4); Red Blood Count 3.62 10^6/ul (4.0-5.4); Red Cell Distribution Width 14 % (10.5-15); White Blood Count 12.2 10^3/ul (3.5-10.8)
[2016-12-17 06:10] LABS: Albumin 2.9 g/dL (3.2-5.2); EGFR African American 177.4 (>60); EGFR Non-African American 137.9 (>60); Globulin 2.2 g/dL (2-4); HDL Cholesterol 24.3 mg/dL; Magnesium 1.9 mg/dL (1.9-2.7); Phosphorus 1.9 mg/dL (2.5-5.0); Potassium 3.4 mmol/L (3.5-5.0); Total Bilirubin 0.6 mg/dL (0.2-1.0); Total Protein 5.1 g/dL (6.4-8.9)
--- NOTE | 2016-12-17 08:01 | RAD ---
INDICATION: Pneumonia. COMPARISON: Comparison is made with prior study from December 16, 2016. TECHNIQUE: A portable view of the chest was obtained. FINDINGS: There is an endotracheal tube present. The catheter tip is located just above the level of the collicular heads. There is a nasogastric tube which demonstrates normal course. The heart is within normal limits in size for this portable exam. There are small to moderate size bilateral pleural effusions and bibasilar infiltrates which have progressed from the prior exam. IMPRESSION: SMALL TO MODERATE-SIZED BILATERAL PLEURAL EFFUSIONS AND BIBASILAR INFILTRATES DEMONSTRATING SLIGHT PROGRESSION.
[2016-12-17] MEDS ORDERED: Potassium Chloride LIQUID* 20 MEQ PACKET NG TUBE ONE (08:11)
[2016-12-17] MEDS ORDERED: NS 0.9% 50 ML* 50 ML ONE (08:52)
[2016-12-17] MEDS: Multivitamins ADULT w/MIN LIQ* 15 ML UDC PO SCH (09:12)
[2016-12-17] MEDS: Folic Acid TAB* 1 MG PO SCH (09:12)
[2016-12-17] MEDS: Famotidine TAB* 20 MG PO SCH (09:12)
[2016-12-17] MEDS: Thiamine TAB* 100 MG TAB PO SCH (09:13)
[2016-12-17] MEDS: Ticagrelor* 90 MG TAB PO SCH ×2 (09:13→20:41)
[2016-12-17] MEDS: Aspirin Low Dose CHEW TAB* 81 MG PO SCH (09:13)
--- NOTE | 2016-12-17 09:57 | PN ---
Progress Note - Progress Note Date of Service: 12/17/16 Note: Progress Note - Critical Care 24 hour events: -intubated, on 2.5 -s/p cardiac cath 12/16, PCI with DESx2 to RCA for 100% occlusion and VINOD x1 to OM/Circ -on sedation, decreased and follows commands -less fio2 required today, minimal/non secretions, afebrile. Tele: NSR Vitals: Vital Signs Temp 98.6 F 12/17/16 09:30 Pulse 98 12/17/16 09:30 Resp 20 12/17/16 09:00 BP 99/66 12/17/16 09:00 Pulse Ox 96 12/17/16 09:30 Intake & Output 12/16/16 12/17/16 12/17/16 18:59 06:59 18:59 Intake Total 1013.0 1724.8 Output Total 1312 1540 285 Balance -299.0 184.8 -285 Weight 208 lb 1.862 oz Intake: IV Fluids 350 980 NS (0.9%) 350 758 zosyn 222 IVPB 110 zosyn 110 Medicated IV 553.0 387.8 CC - Norepinephrine/ 52.4 Levophed CC - Propofol/Diprivan 218 229 dobutamine 69.8 47 heparin 130 midazolam 27.6 precedex 55.2 111.8 Oral 0 Tube Feeding 141 Tube Feeding Flush Amount 141 NG Tube Irrigate Amount 75 Output: NG Tube Drainage Amount 125 200 Chen 1187 1340 285 O2/Vent: AC 16/500/+5/100% Infusions: propofol held, levophed off, versed held, precedex 0.4, dobutamine 2.5 Current Medications: Albuterol (Albuterol (2.5 Mg) 0.5 % Conc) 2.5 mg INH Q4HR PRN PRN Reason: WHEEZING Aspirin (Aspirin Low Dose Tab*) 81 mg PO DAILY [facility] Last Admin: 12/17/16 09:13 Dose: 81 mg Atorvastatin Calcium (Lipitor*) 80 mg PO 1700 [facility] Last Admin: 12/16/16 22:45 Dose: Not Given Chlorhexidine Gluconate (Peridex Mouth Wash 0.12%*) 15 ml TOPICAL Q4HR [facility] Last Admin: 12/17/16 09:12 Dose: 15 ml Dextrose (Dextrose 50% Vial 50 Ml*) 50 ml IV Q1HR PRN PRN Reason: FS < 60 Famotidine (Pepcid Tab*) 20 mg PO DAILY GABO Last Admin: 12/17/16 09:12 Dose: 20 mg Folic Acid (Folvite Tab*) 1 mg PO DAILY GABO Last Admin: 12/17/16 09:12 Dose: 1 mg Heparin Sodium (Porcine) (Heparin Flush Picc/Ml/Cvc(*)) 0 ml FLUSH 0600,1800 GABO PRN Reason: Protocol Last Admin: 12/17/16 06:50 Dose: Not Given Heparin Sodium (Porcine) (Heparin Vial(*)) 0 units IV .PER PROTOCOL GABO PRN Reason: Protocol Midazolam HCl (Versed Premix Bag 1 Mg/Ml*) 100 mg in 100 mls @ 0 mls/hr IV .Q24HR GABO PRN Reason: As Directed Last Admin: 12/15/16 20:04 Dose: 3 mls/hr Norepinephrine Bitartrate (Levophed 16 Mcg/Ml Premix Bag*) 4,000 mcg in 250 mls @ 18.75 mls/hr IV .INITIAL RATE GABO; 5 MCG/MIN PRN Reason: Protocol Last Admin: 12/15/16 19:23 Dose: 18.75 mls/hr Propofol (Diprivan*) 100 mls @ 0 mls/hr IV .(Initial Rate) GABO; 0 MCG/KG/MIN PRN Reason: Protocol Last Admin: 12/17/16 05:11 Dose: 40 mls/hr Piperacillin Sod/Tazobactam (Sod 3.375 gm/ Sodium Chloride) 100 mls @ 25 mls/ hr IVPB Q8H GABO Last Admin: 12/17/16 09:11 Dose: 25 mls/hr Dobutamine HCl/Dextrose (Dobutamine 2000 Mcg/Ml Ivpremx*) 500 mg in 250 mls @ 6.923 mls/hr IV .Initial Rate GABO; 2.5 MCG/KG/MIN PRN Reason: Protocol Last Admin: 12/16/16 16:45 Dose: 6.923 mls/hr Dexmedetomidine HCl 200 mcg/ (Sodium Chloride) 50 mls @ 2.32 mls/hr IVPB Q21H GABO PRN Reason: 0.1 MCG/KG/HR Last Admin: 12/17/16 01:14 Dose: 2.32 mls/hr Heparin Sodium/Dextrose (Heparin Drip 25,000 Units(*)) 25,000 units in 500 mls @ 0 mls/hr IV .NO INITIAL BOLUS GABO; As Directed PRN Reason: Protocol Last Admin: 12/16/16 08:51 Dose: 30 mls/hr Sodium Chloride (Ns 0.9% 1000 Ml*) 1,000 mls @ 100 mls/hr IV .per rate [facility] Last Admin: 12/16/16 16:14 Dose: 100 mls/hr Midazolam HCl (Versed 2mg/2ml*) 2 mg IV Q1HR PRN PRN Reason: AGITATION Stop: 12/17/16 18:01 Multivitamins (Theragran W/Minerals Liq*) 15 ml PO DAILY [facility] Last Admin: 12/17/16 09:12 Dose: 15 ml Pharmacy Consult (Zosyn Per Pharmacy*) 1 note FOLLOW UP .ZOSYN PER PHARMACY GABO Thiamine HCl (Vitamin B-1 Tab*) 100 mg PO DAILY [facility] Last Admin: 12/17/16 09:13 Dose: 100 mg Ticagrelor (Brilinta*) 90 mg PO BID [facility] Last Admin: 12/17/16 09:13 Dose: 90 mg Physical Exam: General: intubated sedated, waking and follows commands Head: normocephalic, atraumatic HEENT: no pallor, no icterus, moist mucous membranes Neck: soft, supple, no jvd, no stridor CVS: normal rate, normal rhythm, no murmur Resp: bilateral air entry Abdomen: soft, nondistended, bowel sounds present Ext: pulses+, warm, no edema Skin: intact, no breakdown, no dryness Neuro: intubated, sedated but awakens now, follows all commands, pupils bialterally reactive Labs: Laboratory Results - last 24 hr 12/16/16 12/16/16 12/16/16 12:08 16:30 16:30 WBC 14.8 H RBC 3.80 L Hgb 13.0 L Hct 39 L MCV 101 H MCH 34 H MCHC 34 RDW 14 Plt Count 187 MPV 9 Neut % (Auto) 81.8 Lymph % (Auto) 9.5 L [place] % (Auto) 8.1 Eos % (Auto) 0.3 Baso % (Auto) 0.3 Absolute Neuts (auto) 12.1 H Absolute Lymphs (auto) 1.4 Absolute Monos (auto) 1.2 H Absolute Eos (auto) 0 Absolute Basos (auto) 0.1 Absolute Nucleated RBC 0.01 Nucleated RBC % 0 APTT Sodium Potassium Chloride Carbon Dioxide Anion Gap BUN Creatinine Est GFR ( Amer) Est GFR (Non-Af Amer) BUN/Creatinine Ratio Glucose 101 H POC Glucose (mg/dL) 104 H Calcium Phosphorus Magnesium Total Bilirubin AST ALT Alkaline Phosphatase Total Protein Albumin Globulin Albumin/Globulin Ratio Triglycerides Cholesterol LDL Cholesterol HDL Cholesterol 12/16/16 12/17/16 12/17/16 21:23 00:25 03:30 WBC RBC Hgb Hct MCV MCH MCHC RDW Plt Count MPV Neut % (Auto) Lymph % (Auto) [place] % (Auto) Eos % (Auto) Baso % (Auto) Absolute Neuts (auto) Absolute Lymphs (auto) Absolute Monos (auto) Absolute Eos (auto) Absolute Basos (auto) Absolute Nucleated RBC Nucleated RBC % APTT Sodium Potassium Chloride Carbon Dioxide Anion Gap BUN Creatinine Est GFR ( Amer) Est GFR (Non-Af Amer) BUN/Creatinine Ratio Glucose POC Glucose (mg/dL) 99 105 H 103 H Calcium Phosphorus Magnesium Total Bilirubin AST ALT Alkaline Phosphatase Total Protein Albumin Globulin Albumin/Globulin Ratio Triglycerides Cholesterol LDL Cholesterol HDL Cholesterol 12/17/16 12/17/16 12/17/16 05:30 05:30 05:30 WBC 12.2 H RBC 3.62 L Hgb 12.5 L Hct 36 L MCV 101 H MCH 35 H MCHC 34 RDW 14 Plt Count 178 MPV 9 Neut % (Auto) 78.3 Lymph % (Auto) 10.9 L [place] % (Auto) 9.9 H Eos % (Auto) 0.4 Baso % (Auto) 0.5 Absolute Neuts (auto) 9.5 H Absolute Lymphs (auto) 1.3 Absolute Monos (auto) 1.2 H Absolute Eos (auto) 0 Absolute Basos (auto) 0.1 Absolute Nucleated RBC 0 Nucleated RBC % 0 APTT 31.3 Sodium 137 Potassium 3.4 L Chloride 105 Carbon Dioxide 31 Anion Gap 1 L BUN 9 Creatinine 0.60 L Est GFR ( Amer) 177.4 Est GFR (Non-Af Amer) 137.9 BUN/Creatinine Ratio 15.0 Glucose 99 POC Glucose (mg/dL) Calcium 8.0 L Phosphorus 1.9 L Magnesium 1.9 Total Bilirubin 0.60 AST 65 H ALT 55 H Alkaline Phosphatase 49 Total Protein 5.1 L Albumin 2.9 L Globulin 2.2 Albumin/Globulin Ratio 1.3 Triglycerides 220 Cholesterol 170 LDL Cholesterol 102 HDL Cholesterol 24.3 Imaging: cxr 12/14- ett high, no infitlrate/effusion, hyperinflated lungs it appears ct head - neg for acute process. cxr 12/15 - ett above toya; right small pleural effusion +/- right base atelectasis/consoli cxr 12/16 - ett above toya; right lower lobe consolidation+, +/- effusion CTA chest 12/15 - RUL small PEs, Right base atelectasis reviewed cxr 12/17 - ett above toya, small-mod bilateral effusions and infiltrates Assessment: 61y M with history of smoking; brought in by EMS for out of hospital cardiac arrest, VFib arrest, with transient THA inferiorly and h/o chest pain for 1 week. Noted to have possible CVA vs severe anoxic injury in ER , holding on cardiac catheterization. -VF cardiac arrest -Transient ST elevation, inferiorly, suspected STEMI -Acute Hypoxic Respiratory Failure -Cardiogenic shock -Hypothermia protocol -Encephelopathy, suspected hypoxic-ischemic encephelopathy vs CVA during arrest -tobacco use history -right lower lobe aspiration pneumonia -Right upper lobe PE Plan: Neuro- follows commands, weaning sedation. plan for MRI once extubated and able for eval. CVS- on 2.5, decrease to 1 now. More RV systolic dysfunction than LV from right sided infarct. will once once able to be extubated. cont asa/brilinta/ statin. off heparin. will cont heparin SQ today, plan for IV heparin if extubated after today. s/p PCI to RCA and Cx yesterday. start Beta darya once off dobutamine. Resp-intubated, on CPAP 12/08 now, 40% fio2. weaning protocol today. if no secretions and able to tolerated, will plan for extubation if able. Cont Zosyn for aspiration pneumonia. noted new effusion, will monitor and start low dose lasix, already making urine though. bronchodilators prn. Note PE small RUL; IV heparin if able to extubated, though he will be on triple therapy then, watch for bleeding. I feel this PE is small and likely just an incidental finding. ID- afebrile, off hypothermia. leukocytosis improving. reactive +/- aspiration. CXr with right lower lobe infiltrate but now some effusions b/l, likely aspiration pneumonia. cont zosyn iv (day#3). GI- tube feeds on, will hold for weaning. NGT in place. PPI prophylaxis Renal- Cr normal, making some urine. off IVF. K okay, acidosis improved. chen+ . Heme- hg okay. plt okay. ASA/brilinta po. IV heparin for small PE once extubated. monitor for bleeding and plt dysfunction. Endo- insulin as needed, change fingerstick to q4h. BS running mid 100s. no further hypoglycemia. Musculsk- pressure ulcer proph. Wounds- none DVT prophylaxis: heparin sq GI prophylaxis: PPI iv Central Line: right fem Arterial Line: right fem Chen Cathetor: yes Disposition: ICU for cardiac arrest, resp failure, MA Code Status: full code Total Critical Care time is 40 minutes, excluding procedures/teaching Paul Ybarra MD Log Buyer (Electronically Signed)
[2016-12-17] MEDS ORDERED: DOBUTamine 2000 MCG/ML IVPREMX 500 MG/250 ML BAG IV SCH (10:03)
[2016-12-17] MEDS ORDERED: Albuterol 2.5 MG/3 ML NEB.SOL* (0.083%) INH PRN (12:57)
[2016-12-17] MEDS ORDERED: Dextrose 50% Syringe 50 ML* 25 GM/50 ML SYRINGE IV PUSH PRN (12:57)
[2016-12-17] MEDS ORDERED: Heparin VIAL(*) 5000 UNITS/ML VIAL (FIVE THOUSAND) SUBCUT SCH (14:00)
--- NOTE | 2016-12-17 14:08 | PN ---
PROGRESS NOTE: DATE OF PROGRESS NOTE: 12/17/16 LOCATION: He is currently in ICU, bed 5. Overnight, the patient is done well. He has been sedated on Versed, Precedex, and propofol. Currently, on 2 mg of versed and 30 mg of propofol. The medication was stopped from my exam. He has had no new events overnight. He has been intermittently following the nurses commands and moving all extremities. He has been agitated at times. He is currently intubated and has gloves on his hands. He underwent a cardiac cath yesterday and tolerated the procedure well. His current medications include albuterol 2.5 mg q. 4 hours, aspirin 81 mg daily, atorvastatin 80 mg daily, chlorhexidine gluconate 15 mL topical. Dexmedetomidine, dextrose, dobutamine, currently off. Pepcid 20 mg daily, folic acid 1 mg daily, Versed 2 mg, multivitamins, Zosyn, propofol, thiamine 800 mg q.d., Brilinta 90 mg p.o. b.i.d. Vital Signs: Blood pressure 109/71, heart rate of 80, respiratory rate of 19 on ventilator, O2 sat of 96%. Blood pressures have been generally well controlled overnight. On physical examination, he is a well-nourished, well- developed gentleman. He is lying in his hospital bed, intubated. He has gloves on his hands. Nurses were at the bed side. His family arrived at the bed side. He has multiple drips going. He is off sedation for approximately 5 to 10 minutes. He does open his eyes to command. He does track with his eyes bilaterally. No nystagmus is noted. He blinks to threat. He gags. He spontaneously moves all extremities to pain and withdraws to pain x4. He does squeeze my finger bilaterally symmetrically, moves his toes bilaterally. His face appears symmetric although he does have an ET tube in place. Reflexes were 3+ at the left patella, 3+ at the right patella with some cross. Equivocal Babinski's. Biceps were 1+ and symmetric. His chest is clear to auscultation bilaterally. Cardiovascular is regular rate and rhythm. Abdomen is soft and positive bowel sounds. Laboratory work this morning includes, white count of 12.2, hemoglobin is 12.5, hematocrit of 36, platelet count of 178. Lymphocytes 10.9, monocytes 9.9, absolute neutrophils 9.5, PTT of 31.3. Chemistry significant for potassium of 3.4, creatinine of 0.60, calcium of 8.0, phosphorus of 1.9. ALT and AST are elevated to 65 and 55. TSH of 1.21. He had a chest x-ray, this morning, which showed small-to- moderate sized bilateral pleural effusions and bibasilar infiltrates, demonstrating slight progression. His last CT of the head was done yesterday at 10:29 showed no acute issues and sinusitis including right mastoid effusion. Mr. Moncada is a 61-year-old gentleman who had a witnessed cardiac arrest with return of circulation about 15 minutes presented and was unresponsive with some question of right arm weakness. He was not moving it at the time. But, it was a difficult examination. He is status post cardiac stents and has done remarkably well. Currently, he is improving neurologically. He appears to be nonfocal on examination and off sedation, appears to be improving. At this point, Cardiology is following him. He remains in the ICU. The plan is to wean his sedation and extubate as soon as possible. I defer medical management to the primary care team and ICU team. From my standpoint, I do not think we need to do anything differently. Should he change or when he wakes up, if it appears he has more focality to his examination, we can consider an MRI once stable or a CT scan if necessary. But for now, I think it is okay to watch him closely with serial neurologic examinations. I will continue to follow him closely and make further recommendations as necessary. [id number]/[facility] #: [id number] KATINA
[2016-12-17] MEDS: Acetaminophen TAB* 325 MG PO PRN ×2 (15:35→21:53)
[2016-12-17] MEDS ORDERED: Heparin VIAL(*) 5000 UNITS/ML VIAL (FIVE THOUSAND) IV SCH (17:00)
[2016-12-17] MEDS: Atorvastatin* 80 MG TAB PO SCH (18:16)
[2016-12-17] MEDS: Metoprolol Tartrate TAB* 25 MG PO SCH ×2 (18:17→20:41)
[2016-12-17] MEDS ORDERED: Heparin DRIP 25,000 UNITS(*) 25,000 UNITS/500 ML BAG IV SCH (21:00)
--- NOTE | 2016-12-17 22:39 | CATH ---
CARDIAC CATHETERIZATION AND INTERVENTIONAL REPORT: DATE OF PROCEDURE: 12/16/16 INDICATION FOR THE PROCEDURE: The patient with an out of hospital arrest with transient ST elevation of the inferior leads assessed for the presence of severe coronary artery disease. PROCEDURE: Coronary arteriography, left heart catheterization, left ventriculography, intervention into totally occluded proximal right coronary artery with balloon angioplasty and stenting utilizing a 2.25 x 28 mm long Synergy drug- eluting stent in the mid right coronary artery overlapped more proximally by a 2.75 x 38 mm long Synergy drug-eluting stent postdilated to 3.25 mm. Intervention into mid circumflex artery with primary stenting with a 3.0 x 28 mm long Xience Alpine drug-eluting stent, Mynx closure device placed. PROCEDURE IN DETAIL: The patient had already been examined and the case was discussed at length with the patient's family and Dr. Ybarra, the scallop cutter as to proceeding with cardiac catheterization. The decision was made to do this and as such he was brought to the cardiovascular laboratory. He has been intubated and had a Gibbs catheter already in place and was on pressor therapy. The left groin area was anesthetized with 1% lidocaine. The left femoral artery was cannulated and a 5-Rwandan introducer was placed. A coronary arteriography was performed utilizing a 5-Rwandan 4 Alexandre left coronary catheter and a 5-Rwandan 4 curve right coronary catheter. A 5-Rwandan pigtail catheter was advanced to the ascending aorta with central aortic pressure was recorded. The catheter was then passed across the aortic valve into the left ventricle. The left ventricular pressure was recorded. The left ventriculography was performed utilizing a total of 24 cc of Omnipaque dye at a rate of 12 cc per second. Following this, the catheter was pulled back across the aortic valve to assess gradient. Following this, the decision was made to try to intervene into the totally occluded right coronary artery. The patient was on heparin therapy and his ACT was found to be subtherapeutic. He was bolused with additional heparin 4000 units and given an initial bolus of Integrilin. ACT was found to be in therapeutic range. Guiding views were obtained utilizing a 6-Rwandan ART curve catheter initially; however, this was then exchanged for a 6-Rwandan AR1 catheter with side holes. Following this, attempts were initially made to cross the right coronary artery utilizing an All Star exchange length wire. This eventually was not able to cross the total occlusion as such. This wire was then exchanged for a whisper wire exchange length. This was able to cross the total occlusion and exchange length 1.5 mm diameter 8 mm long Emerge balloon was placed over this into the [id number] right coronary artery. An injection was made to assess to make sure the wire was indeed intraluminal. It was found to be intraluminal. At this point, an exchange length All Star wire was placed. A Pronto extraction catheter was then utilized to try to remove as much thrombus as present. Following this, a stent placement was performed utilizing a 2.25 x 28 mm long Synergy drug- eluting stent in the mid portion of right coronary artery overlapped proximally by a 2.75 x 38 mm long Synergy drug-eluting stent in the more proximal portion with post balloon dilatations made to the more proximal stent with a 3.25 x 12 mm long NC Emerge balloon. Following this, the artery was assessed with the balloon wires removed. Of note, once the whisper wire was able to cross the totally occluded right coronary artery and it was shown to be intraluminal, additional bolus of Integrilin was given and an Integrilin drip was started. The decision was then made to intervene into the mid circumflex area. Guiding views were obtained using a 6-Rwandan 3.5 curve VL guide catheter. An All Star wire regular length was placed in the mid obtuse marginal branch and a second All Star wire was placed down the body of the circumflex. Primary stenting was performed utilizing the 3.0 x 28 mm long Xience Alpine drug-eluting stent with post deployment balloon inflations made utilizing a 3.0 x 12 mm long balloon after the jailed wire was removed from the obtuse marginal branch and the wire was repositioned into the obtuse marginal branch. The artery was then assessed with the wires removed. Of note, initially consideration for trying to cross the stent into the obtuse marginal branch was made because of what appeared to be a lesion to the ostium, but it appeared in retrospect to be more spasm noted with a moderate narrowing seen in ELIO-3 flow in the obtuse marginal branch. At the end of the case, an injection was made into the left femoral arterial sheath to assess the eligibility to utilize the closure device. It was found to be acceptable for this and as such a 6/7-Rwandan Mynx closure device was deployed with good hemostasis. The total contrast used was 375 cc of Omnipaque dye. The radiation exposure included 40 minutes of fluoro time. The air kerma radiation was 4351 milligray. The DAP radiation was 27,961 microgray/m2. RESULTS: HEMODYNAMIC DATA: Left heart catheterization - central aortic pressure recorded at 126/73 with a mean of 97, left ventricular pressure 125 over left ventricular end- diastolic pressure of 13. LEFT VENTRICULOGRAPHY: Performed in the PETERSON projection revealed symmetrical left ventricular contractility with very mild proximal inferior wall hypokinesis, overall EF appeared to be normal at 55%. CORONARY ARTERIOGRAPHY: A. Left coronary artery: 1. Left main - short nature and widely patent. 2. Left anterior descending artery - the ostium at the left anterior descending artery had very minimal 10% narrowing noted. The continuation of left anterior descending artery traversed toward the apical region. There was a mid portion of the LAD that was intramyocardial with systolic milking seen. No focal stenosis was noted. 3. Circumflex artery - a codominant vessel supplying a mid first obtuse marginal branch, followed by multiple low lying posterior left ventricular branches and ending in what appeared to be a codominant left-sided PDA. The mid portion of the circumflex artery had a hazy lesion that appeared to be as much as 85% to 90%. Collateral blood flow could be seen from the left system to supply the right coronary artery. There was retrograde filling up the right coronary artery to the mid portion of the vessel. B. Right coronary artery - totally occluded proximally after a critical 85% to 90% obstruction seen. INTERVENTION INTO TOTALLY OCCLUDED PROXIMAL RIGHT CORONARY ARTERY: Successful revascularization of totally occluded right coronary artery with balloon angioplasty, placement of a 2.25 x 28 mm long stent in the mid right coronary overlapped more proximally by a 2.75 x 38 mm long Synergy drug-eluting stent postdilated to 3.25 mm with ELIO-3 flow seen. The vessel supplied a small caliber posterior descending artery. The artery also supplied an acute right ventricular branch. INTERVENTION INTO MID CIRCUMFLEX ARTERY: Successful reduction of 85% to 90% obstruction with primary stenting utilizing a 3.0 x 28 mm long Synergy drug-eluting stent postdilated to high pressures with ELIO-3 flow 0% residual stenosis seen. OVERALL ASSESSMENT: Successful intervention into both totally occluded proximal right coronary artery as well as mid circumflex as described above. The patient will be maintained on dual-antiplatelet therapy for most likely a minimum of a year, but more likely 30 months. High dose statin therapy will be utilized as well and beta-darya therapy will be started once his hemodynamics are stable. [id number]/[facility] #: [id number] [id number]
[2016-12-18] MEDS: Dexmedetomidine* 200 MCG in NS 0.9% 50 ML* 48 ML IVPB SCH (04:04)
[2016-12-18 05:09] LABS: Hematocrit 36 % (42-52); Hemoglobin 12.4 g/dl (14.0-18.0); Mean Corpuscular HGB Conc 34 g/dl (31-36); Mean Corpuscular Hemoglobin 35 pg (27-31); Mean Corpuscular Volume 101 fL (80-94); Mean Platelet Volume 9 um3 (7.4-10.4); Red Blood Count 3.56 10^6/ul (4.0-5.4); Red Cell Distribution Width 14 % (10.5-15); White Blood Count 15.9 10^3/ul (3.5-10.8)
[2016-12-18 05:27] LABS: ALT 48 U/L (7-52); Albumin 3.4 g/dL (3.2-5.2); Alkaline Phosphatase 68 U/L (34-104); BUN/Creatinine Ratio 15.4 (8-20); Blood Urea Nitrogen 10 mg/dL (6-24); CO2 Carbon Dioxide 25 mmol/L (22-32); Calcium 8.4 mg/dL (8.6-10.3); Chloride 108 mmol/L (101-111); EGFR African American 161.7 (>60); EGFR Non-African American 125.7 (>60); Globulin 2.7 g/dL (2-4); Glucose 90 mg/dL (70-100); Sodium 139 mmol/L (133-145); Total Protein 6.1 g/dL (6.4-8.9)
[2016-12-18 05:59] LABS: Anion Gap 6 mmol/L (2-11)
[2016-12-18] MEDS: Thiamine TAB* 100 MG TAB PO SCH (09:45)
[2016-12-18] MEDS: Aspirin Low Dose CHEW TAB* 81 MG PO SCH (09:45)
[2016-12-18] MEDS: Famotidine TAB* 20 MG PO SCH (09:45)
[2016-12-18] MEDS: Multivitamins ADULT w/MIN LIQ* 15 ML UDC PO SCH (09:45)
[2016-12-18] MEDS: Ticagrelor* 90 MG TAB PO SCH ×2 (09:45→20:54)
[2016-12-18] MEDS: Metoprolol Tartrate TAB* 25 MG PO SCH ×2 (09:46→20:54)
[2016-12-18] MEDS: Folic Acid TAB* 1 MG PO SCH (09:46)
[2016-12-18 10:25] LABS: Hematocrit 36 % (42-52); Hemoglobin 12.5 g/dl (14.0-18.0); Mean Corpuscular HGB Conc 34 g/dl (31-36); Mean Corpuscular Hemoglobin 34 pg (27-31); Mean Corpuscular Volume 100 fL (80-94); Mean Platelet Volume 9 um3 (7.4-10.4); Red Blood Count 3.62 10^6/ul (4.0-5.4); Red Cell Distribution Width 13 % (10.5-15); White Blood Count 14.6 10^3/ul (3.5-10.8)
--- NOTE | 2016-12-18 10:53 | PN ---
Progress Note - Progress Note Date of Service: 12/18/16 Note: Progress Note - Critical Care 24 hour events: -extubated yesterday without incident, on NC now -doing well overnight; low grade temp tmax 100.4 -BP stable, started on metoprolol and off dobuutamine -cough mild, doesnt bring up much -some short term memory loss; forgets place and president -hematuria and mild bruising overnight from site of heparin infusion; heparin held. Tele: NSR, tachy at times Vitals: Vital Signs Temp 99.5 F 12/18/16 10:00 Pulse 100 12/18/16 10:00 Resp 20 12/18/16 10:09 BP 112/71 12/18/16 09:30 Pulse Ox 93 12/18/16 10:00 Intake & Output 12/17/16 12/18/16 12/18/16 18:59 06:59 18:59 Intake Total 836.6 388 560 Output Total 1645 1900 Balance -808.4 -1512 560 Weight 201 lb 11.567 oz Intake: IV Fluids 207 388 NS (0.9%) 207 205 zosyn 183 Medicated IV 190.6 CC - Propofol/Diprivan 60 dobutamine 40 midazolam 34.6 precedex 56 Oral 350 560 Tube Feeding 89 Output: Chen 1645 1900 O2/Vent: AC 16/500/+5/100% Infusions: propofol held, levophed off, versed held, precedex 0.4, dobutamine 2.5 Current Medications: Albuterol (Albuterol (2.5 Mg) 0.5 % Conc) 2.5 mg INH Q4HR PRN PRN Reason: WHEEZING Aspirin (Aspirin Low Dose Tab*) 81 mg PO DAILY REPLACED BY [facility] Last Admin: 12/17/16 09:13 Dose: 81 mg Atorvastatin Calcium (Lipitor*) 80 mg PO 1700 REPLACED BY [facility] Last Admin: 12/16/16 22:45 Dose: Not Given Chlorhexidine Gluconate (Peridex Mouth Wash 0.12%*) 15 ml TOPICAL Q4HR REPLACED BY [facility] Last Admin: 12/17/16 09:12 Dose: 15 ml Dextrose (Dextrose 50% Vial 50 Ml*) 50 ml IV Q1HR PRN PRN Reason: FS < 60 Famotidine (Pepcid Tab*) 20 mg PO DAILY GABO Last Admin: 12/17/16 09:12 Dose: 20 mg Folic Acid (Folvite Tab*) 1 mg PO DAILY GABO Last Admin: 12/17/16 09:12 Dose: 1 mg Heparin Sodium (Porcine) (Heparin Flush Picc/Ml/Cvc(*)) 0 ml FLUSH 0600,1800 GABO PRN Reason: Protocol Last Admin: 12/17/16 06:50 Dose: Not Given Heparin Sodium (Porcine) (Heparin Vial(*)) 0 units IV .PER PROTOCOL GABO PRN Reason: Protocol Midazolam HCl (Versed Premix Bag 1 Mg/Ml*) 100 mg in 100 mls @ 0 mls/hr IV .Q24HR GABO PRN Reason: As Directed Last Admin: 12/15/16 20:04 Dose: 3 mls/hr Norepinephrine Bitartrate (Levophed 16 Mcg/Ml Premix Bag*) 4,000 mcg in 250 mls @ 18.75 mls/hr IV .INITIAL RATE GABO; 5 MCG/MIN PRN Reason: Protocol Last Admin: 12/15/16 19:23 Dose: 18.75 mls/hr Propofol (Diprivan*) 100 mls @ 0 mls/hr IV .(Initial Rate) GABO; 0 MCG/KG/MIN PRN Reason: Protocol Last Admin: 12/17/16 05:11 Dose: 40 mls/hr Piperacillin Sod/Tazobactam (Sod 3.375 gm/ Sodium Chloride) 100 mls @ 25 mls/ hr IVPB Q8H REPLACED BY [facility] Last Admin: 12/17/16 09:11 Dose: 25 mls/hr Dobutamine HCl/Dextrose (Dobutamine 2000 Mcg/Ml Ivpremx*) 500 mg in 250 mls @ 6.923 mls/hr IV .Initial Rate GABO; 2.5 MCG/KG/MIN PRN Reason: Protocol Last Admin: 12/16/16 16:45 Dose: 6.923 mls/hr Dexmedetomidine HCl 200 mcg/ (Sodium Chloride) 50 mls @ 2.32 mls/hr IVPB Q21H GABO PRN Reason: 0.1 MCG/KG/HR Last Admin: 12/17/16 01:14 Dose: 2.32 mls/hr Heparin Sodium/Dextrose (Heparin Drip 25,000 Units(*)) 25,000 units in 500 mls @ 0 mls/hr IV .NO INITIAL BOLUS GABO; As Directed PRN Reason: Protocol Last Admin: 12/16/16 08:51 Dose: 30 mls/hr Sodium Chloride (Ns 0.9% 1000 Ml*) 1,000 mls @ 100 mls/hr IV .per rate REPLACED BY [facility] Last Admin: 12/16/16 16:14 Dose: 100 mls/hr Midazolam HCl (Versed 2mg/2ml*) 2 mg IV Q1HR PRN PRN Reason: AGITATION Stop: 12/17/16 18:01 Multivitamins (Theragran W/Minerals Liq*) 15 ml PO DAILY GABO Last Admin: 12/17/16 09:12 Dose: 15 ml Pharmacy Consult (Zosyn Per Pharmacy*) 1 note FOLLOW UP .ZOSYN PER PHARMACY REPLACED BY [facility] Thiamine HCl (Vitamin B-1 Tab*) 100 mg PO DAILY REPLACED BY [facility] Last Admin: 12/17/16 09:13 Dose: 100 mg Ticagrelor (Brilinta*) 90 mg PO BID REPLACED BY [facility] Last Admin: 12/17/16 09:13 Dose: 90 mg Physical Exam: General: awake, alert, no distress Head: normocephalic, atraumatic HEENT: no pallor, no icterus, moist mucous membranes Neck: soft, supple, no jvd, no stridor CVS: tachy at times, normal rhythm, no murmur Resp: bilateral air entry, mild right basilar crackles only, no wheeze Abdomen: soft, nondistended, bowel sounds present Ext: pulses+, warm, no edema Skin: intact, no breakdown, no dryness Neuro: awake, alert, no distress. oriented to time/place/person. some forgetfullness of events and certain facts. no focal deficit Labs: Laboratory Results - last 24 hr 12/17/16 12/17/16 12/17/16 12:21 17:33 20:37 WBC RBC Hgb Hct MCV MCH MCHC RDW Plt Count MPV Neut % (Auto) Lymph % (Auto) [place] % (Auto) Eos % (Auto) Baso % (Auto) Absolute Neuts (auto) Absolute Lymphs (auto) Absolute Monos (auto) Absolute Eos (auto) Absolute Basos (auto) Absolute Nucleated RBC Nucleated RBC % APTT Sodium Potassium Chloride Carbon Dioxide Anion Gap BUN Creatinine Est GFR ( Amer) Est GFR (Non-Af Amer) BUN/Creatinine Ratio Glucose POC Glucose (mg/dL) 97 108 H 107 H Calcium Phosphorus Magnesium Total Bilirubin AST ALT Alkaline Phosphatase Total Protein Albumin Globulin Albumin/Globulin Ratio 12/18/16 12/18/16 12/18/16 05:00 05:00 05:00 WBC 15.9 H RBC 3.56 L Hgb 12.4 L Hct 36 L MCV 101 H MCH 35 H MCHC 34 RDW 14 Plt Count 207 MPV 9 Neut % (Auto) 81.2 Lymph % (Auto) 9.1 L Ellsworth % (Auto) 8.6 Eos % (Auto) 0.4 Baso % (Auto) 0.7 Absolute Neuts (auto) 12.9 H Absolute Lymphs (auto) 1.4 Absolute Monos (auto) 1.4 H Absolute Eos (auto) 0.1 Absolute Basos (auto) 0.1 Absolute Nucleated RBC 0 Nucleated RBC % 0 APTT 59.3 H Sodium 139 Potassium TNP Chloride 108 Carbon Dioxide 25 Anion Gap 6 BUN 10 Creatinine 0.65 L Est GFR ( Amer) 161.7 Est GFR (Non-Af Amer) 125.7 BUN/Creatinine Ratio 15.4 Glucose 90 POC Glucose (mg/dL) Calcium 8.4 L Phosphorus 2.0 L Magnesium 2.0 Total Bilirubin 1.90 H AST TNP ALT 48 Alkaline Phosphatase 68 Total Protein 6.1 L Albumin 3.4 Globulin 2.7 Albumin/Globulin Ratio 1.3 12/18/16 12/18/16 12/18/16 06:20 09:05 10:02 WBC RBC Hgb Hct MCV MCH MCHC RDW Plt Count MPV Neut % (Auto) Lymph % (Auto) Ellsworth % (Auto) Eos % (Auto) Baso % (Auto) Absolute Neuts (auto) Absolute Lymphs (auto) Absolute Monos (auto) Absolute Eos (auto) Absolute Basos (auto) Absolute Nucleated RBC Nucleated RBC % APTT Sodium Potassium TNP Chloride Carbon Dioxide Anion Gap BUN 12 Creatinine Est GFR ( Amer) Est GFR (Non-Af Amer) BUN/Creatinine Ratio Glucose POC Glucose (mg/dL) 87 Calcium Phosphorus Magnesium Total Bilirubin AST TNP ALT Alkaline Phosphatase Total Protein Albumin Globulin Albumin/Globulin Ratio 12/18/16 10:02 WBC 14.6 H RBC 3.62 L Hgb 12.5 L Hct 36 L MCV 100 H MCH 34 H MCHC 34 RDW 13 Plt Count 199 MPV 9 Neut % (Auto) 79.7 Lymph % (Auto) 12.3 L Ellsworth % (Auto) 7.3 Eos % (Auto) 0.3 Baso % (Auto) 0.4 Absolute Neuts (auto) 11.7 H Absolute Lymphs (auto) 1.8 Absolute Monos (auto) 1.1 H Absolute Eos (auto) 0 Absolute Basos (auto) 0.1 Absolute Nucleated RBC 0 Nucleated RBC % 0 APTT Sodium Potassium Chloride Carbon Dioxide Anion Gap BUN Creatinine Est GFR ( Amer) Est GFR (Non-Af Amer) BUN/Creatinine Ratio Glucose POC Glucose (mg/dL) Calcium Phosphorus Magnesium Total Bilirubin AST ALT Alkaline Phosphatase Total Protein Albumin Globulin Albumin/Globulin Ratio Imaging: cxr 12/14- ett high, no infitlrate/effusion, hyperinflated lungs it appears ct head - neg for acute process. cxr 12/15 - ett above toya; right small pleural effusion +/- right base atelectasis/consoli cxr 12/16 - ett above toya; right lower lobe consolidation+, +/- effusion CTA chest 12/15 - RUL small PEs, Right base atelectasis reviewed cxr 12/17 - ett above toya, small-mod bilateral effusions and infiltrates Assessment: 61y M with history of smoking; brought in by EMS for out of hospital cardiac arrest, VFib arrest, with transient THA inferiorly and h/o chest pain for 1 week. Noted to have possible CVA vs severe anoxic injury in ER , holding on cardiac catheterization. -VF cardiac arrest -Transient ST elevation, inferiorly, suspected STEMI; s/p PCI to RCA and midCx -Acute Hypoxic Respiratory Failure -Cardiogenic shock 2/2 to Acute LV and RV systolic dysfunction, improved LV; remaining RV systolic dsyfunction. -Hypothermia protocol -Encephelopathy, suspected hypoxic-ischemic encephelopathy vs CVA during arrest -tobacco use history -right lower lobe aspiration pneumonia -Right upper lobe PE Plan: Neuro- awake, alert, no distress. neurochecks q8h. neuro following. will need MRI for further neurological eval as well as carotid evals. carotid duplex for now. CVS- off . started on metoprolol 12.5 bid, increase to 25mg bid. will likely start lisinopril once sepsis improved, low dose. diuresing on his own very well. noted hematuria but improving once heparin held. will hold heparin for now. need to decide if heparin/AC is good, incidient small RUL PE, neg LE duplex. More RV systolic dysfunction than LV from right sided infarct. cont asa/ brilinta/statin. s/p PCI to RCA and Cx. Resp- on NC, no distress. coughing mildly, need flutter valve and chest pt. CXR today. Cont Zosyn for aspiration pneumonia. noted new effusion, will monitor. bronchodilators prn. Note PE small RUL; IV heparin held for bleeding, need to eval if he can tolerated it. LE duplex neg for dvt. reconsider restart of IV heparin tomorrow. I feel this PE is small and likely just an incidental finding. ID- afebrile, tmax 100. leukocytosis 14. reactive +/- aspiration pneumonia. CXr with right lower lobe infiltrate. cont zosyn iv (day#4). GI- cardiac diet. PPI prophylaxis Renal- Cr normal, diuresing on his own. K okay, acidosis improved. chen+, likely d/c chen today Heme- hg okay. plt okay. ASA/brilinta po. IV heparin for small PE restart later today or tomorrow. monitor for bleeding and plt dysfunction. Endo- insulin as needed, change fingerstick to q4h. BS running mid 100s. no further hypoglycemia. Musculsk- pressure ulcer proph. oob to chair today. will need pt/ot tomorrow Wounds- none DVT prophylaxis: holding heparin GI prophylaxis: PPI iv Central Line: right fem d/c 12/17 Arterial Line: right fem d/c 12/17 Chen Cathetor: yes Disposition: ICU for cardiac arrest, resp failure, RI, aspiration pneumonia; start to mobilize. ICU for low grade sepsis still. Code Status: full code Total Critical Care time is 40 minutes, excluding procedures/teaching Paul Ybarra MD Manager Graphic (Electronically Signed)
--- NOTE | 2016-12-18 11:28 | RAD ---
INDICATION: Fever and pneumonia. COMPARISON: Comparison is made with a prior study from December 17, 2016. TECHNIQUE: A portable view of the chest was obtained. FINDINGS: Cardiac and mediastinal contours appear to be within normal limits. There is a small infiltrate at the right lung base. The previously noted pleural effusions appear to have largely resolved. There is suggestion of a trace left pleural effusion. IMPRESSION: SMALL RIGHT BASILAR INFILTRATE.
--- NOTE | 2016-12-18 14:30 | RAD ---
INDICATION: Possible stroke. COMPARISON: There are no prior studies available for comparison. TECHNIQUE: Multiple grayscale, color and Doppler tracings of the common, internal and external carotid and vertebral arteries were obtained. Stenosis estimations reflect velocity criteria that it been correlated to angiographic stenosis calculations based on the distal internal carotid diameter. RIGHT CAROTID: There is mild plaque within the right carotid bulb. The peak systolic velocity in the proximal right internal carotid artery is 49 cm/s and the maximum end-diastolic velocity is 13 cm/s. The peak systolic velocity in the distal right common carotid artery is 73 cm/s and the maximum end-diastolic velocity is 13 cm/s. The internal to common carotid artery ratio is 0.7. This would be consistent with a less than 50% stenosis. LEFT CAROTID: There is mild plaque within the left carotid bulb. The peak systolic velocity in the proximal left internal carotid artery is 35 cm/s and the maximum end-diastolic velocity is 13 cm/s. The peak systolic velocity in the distal left common carotid artery is 60 cm/s and the maximum end-diastolic velocity is 12 cm/s. The internal to common carotid artery ratio is 0.6. This would be consistent with a less than 50% stenosis. VERTEBRALS: There is antegrade flow in both vertebral arteries. IMPRESSION: THERE IS MILD PLAQUE PRESENT IN THE CAROTID BULBS. NO HEMODYNAMICALLY SIGNIFICANT STENOSIS IS PRESENT. CPT II Codes: 3100F
[2016-12-18] MEDS: Atorvastatin* 80 MG TAB PO SCH (17:16)
--- NOTE | 2016-12-18 21:46 | PN ---
PROGRESS NOTE: DATE OF PROGRESS NOTE: 12/18/16 CURRENT LOCATION: He is currently in ICU bed 5. SUBJECTIVE: Overnight, the patient has done well. He did have infiltration of his IV with heparin in the right arm and now has cellulitis. He did spike a fever overnight at 100.6. Currently, his last temp was 99.9. He is extubated. He has done well clinically. Overall, he is much more responsive. He is awake, alert. He is answering questions, sometimes appropriately. No new neurologic issues overnight and in fact neurologically improved from yesterday. He is currently off all sedating medications, on no pressors and doing well. OBJECTIVE: Vital signs: Temp of 99.9, pulse of 100, respiratory rate of 21, pulse oximetry 99%, blood pressure 114/68. In general, he is a well nourished, well developed gentleman lying in his hospital bed. He is somewhat disheveled, has dirt under his fingernails. HEENT: He is normocephalic, atraumatic. Sclerae anicteric. Mucous membranes are moist. Oropharynx is clear. Poor dentition. Neck is supple. No thyromegaly. No carotid bruit. Chest: He has coarse breath sounds bilaterally with some rhonchi bilaterally. Cardiovascular : Regular rate and rhythm. Abdomen is nontender. Extremities: No clubbing, cyanosis or edema is appreciated. He does have redness in the right forearm. It is warmth to the touch, slightly swollen in that area. Neurologic Exam: He is awake, alert. He is oriented to person. He did not know the month, the year , the day or the week, the date or the president. His speech is fluent, there is no dysarthria. He is answering questions appropriately at times. Pupils were equal, round and reactive to light. Extraocular muscles are intact. Face is symmetric. His sensation is intact. Visual valero are full. Hearing is intact. His sternocleidomastoid and trapezius are intact. Motor exam, he is spontaneously moves all extremities antigravity 5/5. There is no drift in the upper and lower extremities. DTRs are 2+ on the left side, 3+ at the right patella, 2+ in the right upper extremity. Downgoing Babinski. Sensation is intact to light touch and pinprick in all 4 extremities. [id number], rapid alternating movements were intact without tremor. No dysdiadochokinesia or dysmetria. Gait was not tested today. Lab work includes a white count of 15.9, hemoglobin 12.4, hematocrit of 36, platelet count of 207, 9.1 lymphocytes, 12.5 neutrophils. PTT of 59.3. Complete metabolic profile, creatinine of 0.65, calcium of 8.4, phosphorus of 2.0, total bili of 1.90, total protein of 6.1. MEDICATIONS: Medication list was reviewed: 1. He is on Tylenol. 2. Albuterol. 3. Aspirin 81 mg daily. 4. Lipitor 80 mg daily. 5. Dextrose. 6. Dexmedetomidine, not given this morning. 7. Dobutamine off. 8. Famotidine. 9. Folic acid. 10. He is off of heparin. 11. Metoprolol. 12. vitamin. 13. He is off of norepinephrine. 14. He is on Zosyn. 15. Appears to be off Brilinta, his last dose was at 2040. ASSESSMENT AND PLAN: Mr. Moncada is a 61-year-old gentleman who is status post cardiac arrest, status post cooling, initially had some right-sided focal findings, concerned for stroke but subsequent CT scan showed no evidence of new stroke. He did undergo cardiac catheterization, he also was know to have a pulmonary embolus, was previously on heparin, but overnight developed some hematuria, some infiltration of his right arm and the heparin was stopped. He is currently on an aspirin at this point. Neurologically, he is improved. I do think he may have suffered some mild hypoxic injury. He does have some memory loss, but hopefully this will improve over time and returned to baseline. I do not think we need to do any imaging at this point. I am going to get just an ultrasound of his carotids to look for any disease, but as far as brain imaging, he is nonfocal and improved. I do not think we need to get a CT scan. We will consider an MRI scan in the next few days once he is more stable. I did speak with the alcohol still operator briefly and he feels that it is likely that the stenting would not hamper MRI with a 1.5 Antoinette magnet, but we will hold for another day or two. If his memory is much improved tomorrow, we may not need to do it urgently, otherwise continue his statin, continue his aspirin, blood pressure control, fever, workup per primary team, possible concern for pneumonia versus cellulitis, on antibiotics. Fever control as necessary. I will continue to follow him. [id number]/[facility] #: [id number] KATINA
[2016-12-19 05:04] LABS: Hematocrit 34 % (42-52); Hemoglobin 11.7 g/dl (14.0-18.0); Mean Corpuscular HGB Conc 35 g/dl (31-36); Mean Corpuscular Hemoglobin 35 pg (27-31); Mean Corpuscular Volume 99 fL (80-94); Mean Platelet Volume 8 um3 (7.4-10.4); Red Blood Count 3.38 10^6/ul (4.0-5.4); Red Cell Distribution Width 14 % (10.5-15); White Blood Count 14.3 10^3/ul (3.5-10.8)
[2016-12-19 05:20] LABS: Albumin 3.3 g/dL (3.2-5.2); BUN/Creatinine Ratio 17.7 (8-20); Calcium 8.2 mg/dL (8.6-10.3); EGFR African American 170.8 (>60); EGFR Non-African American 132.8 (>60); Globulin 2.7 g/dL (2-4); Phosphorus 2.2 mg/dL (2.5-5.0); Potassium 3.4 mmol/L (3.5-5.0); Total Bilirubin 1.6 mg/dL (0.2-1.0)
[2016-12-19] MEDS: Famotidine TAB* 20 MG PO SCH (08:54)
[2016-12-19] MEDS: Aspirin Low Dose CHEW TAB* 81 MG PO SCH (08:54)
[2016-12-19] MEDS: Folic Acid TAB* 1 MG PO SCH (08:55)
[2016-12-19] MEDS: Thiamine TAB* 100 MG TAB PO SCH (08:55)
[2016-12-19] MEDS: Multivitamins ADULT w/MIN LIQ* 15 ML UDC PO SCH (08:55)
[2016-12-19] MEDS: Ticagrelor* 90 MG TAB PO SCH ×2 (08:55→21:35)
[2016-12-19] MEDS: Metoprolol Tartrate TAB* 25 MG PO SCH ×2 (08:55→21:35)
--- NOTE | 2016-12-19 10:59 | PN ---
PROGRESS NOTE: DATE OF PROGRESS NOTE: 12/19/16 LOCATION: Currently in ICU, bed 5. SUBJECTIVE: The patient did well overnight, no new issues. The nurse states that he would call out occasionally and not use his call umana, but otherwise no problems. The patient states that he slept well. He states that he is sometimes bothered by the noise and interruptions but overall is feeling better , he is watching TV this morning, he has no new complaints. OBJECTIVE: Vital Signs: Temp of 100.4 early this morning, blood pressures have been from 130/75 to 156/82, pulse of 86 to 90s, respiratory rate in the 16s to 30s, pulse ox 93% to 95%. In general, he is a well-nourished, well- developed although slightly disheveled gentleman sitting in his bed, he is watching TV. He is very pleasant this morning. HEENT: He is normocephalic, atraumatic. Sclerae are anicteric. Mucous membranes are dry. Oropharynx: He has poor dentition. Neck is supple. Chest is clear to auscultation bilaterally. Cardiovascular: Regular rate and rhythm. Abdomen is nontender. Extremities: No clubbing, cyanosis, or edema is present. He has some redness and swelling in the right forearm, it is warm to the touch. On neurologic exam , he is awake and alert. He is oriented to person, to [place], did not know he was in [place]. He is oriented to December," it is in fact 12/19/16. He knew that the president was Radha. Cranial Nerves: His pupils are equal, round, and reactive to light. Extraocular muscles are intact. No diplopia. Visual valero are full to confrontation. Face is symmetric. Sensation is intact. Tongue is midline. Hearing is intact. Palate raises symmetrically. Motor Exam: He is spontaneously moving all extremities antigravity, good tone. He has 5/5 throughout. There is no drift apparent. No focal weakness. Sensation is grossly intact to light touch and pinprick in the upper and lower extremities. No focal numbness or tingling. His DTRs are 2 + in the upper extremities, 3+ at the patella bilaterally, 1+ at the ankles. He has slightly upgoing on the right, equivocal on the left. [id number] and rapid alternating movements are intact without noticeable tremor. No dysdiadochokinesia. Gait was not tested at this time. DIAGNOSTIC STUDIES/LAB DATA: Includes a complete metabolic profile significant for a potassium of 3.4, creatinine of 0.62, calcium of 8.2, phosphorus of 2.2. Total bili of 1.60, improved; AST of 48. His white count is 14.3 down from 14.6 yesterday, hemoglobin of 11.7, hematocrit of 34. His carotid Doppler study done yesterday, mild plaque present in the carotid bulbs, no hemodynamically significant stenosis present, antegrade flow in the vertebrals. ASSESSMENT AND PLAN: Mr. Moncada is a 61-year-old gentleman, who is status post cardiac arrest, status post cooling initially with some right-sided weakness, significant confusion, he is status post stenting as well. Overall, he has done extremely well. He has continued to improve. Neurologically, he is nonfocal. His mental status seems improved to me today. He did know more today than he did yesterday and I am hopeful that he will continue to improve. Continue neuro checks and serial exams. Consider an MRI of the brain in the next 1 to 2 days, although his continued improvement is certainly a positive sign. From a cardiovascular standpoint, he is doing well. Respiratory standpoint, he had some mild cough yesterday and is on incentive spirometry, he is on antibiotics, and overall is improved. He is on DVT prophylaxis, they continue to mobilize him and he is to have PT today. Neurologically stable. We will continue to follow him and make further recommendations as necessary. [id number]/[facility] #: [id number] KATINA
--- NOTE | 2016-12-19 11:49 | PN ---
Progress Note - Progress Note Date of Service: 12/19/16 Note: CRITICAL CARE MEDICINE Date: 12/19/16 Time: 930 SUBJECTIVE: Patient seen and examined. PHYSICAL EXAM: Vital Signs: Reviewed. Neurologic: nonfocal. communicating. HEENT: pupils equal. Sclera anicteric. Trachea midline. Cardiovascular: S1 S2 Respiratory: mild rhonchi R>L Abdomen: Soft, nt. Extremities: Warm. LABS: Reviewed. IMAGING: Reviewed. MEDICATIONS: Reviewed. ASSESSMENT: 61 M [facility] -VF s/p hypothermia protocol and reanimation Hypoxic encephalopathy - improving NSTEMI : PCI with VINOD to RCA x2 and CIRC x1 RUL PE on admission RLL PNA - on zosyn Acute hypoxic resp failure - resolved Cardiogenic shock - resolved PLAN: Neurologic: doing well. appreciate neuro f/u. considering +/- MRI in next few days. Cardiovascular: Perfusing well. bb. antiplt. statin tx. Respiratory: continued IS use. oob. Gastrointestinal: inc po. dc H2 Renal/Metabolic: stable. Infectious Disease: on zsoyn day 5 of 7. Hematology: on asa, brillinta. start xearlto for pe Endocrine: stress glu improved. Musculoskeletal: oob. still a bit unsteady and need to see if this can improve prior to dispo vs needing an acute rehab Psych/Social: f/u social work needs Supportive and preventative care as ordered. VTE prophylaxis: on xearlto Disposition: to floor with tele; hopefully can dc from hospital in next 48hrs Code Status: Full Critical Care Time: 30min FSofia Engle DO
[2016-12-19] MEDS: Rivaroxaban TAB(*) 15 MG PO SCH ×2 (12:55→21:35)
[2016-12-19] MEDS: Atorvastatin* 80 MG TAB PO SCH (17:48)
[2016-12-20] MEDS: Multivitamins ADULT w/MIN LIQ* 15 ML UDC PO SCH (09:19)
[2016-12-20] MEDS: Thiamine TAB* 100 MG TAB PO SCH (09:19)
[2016-12-20] MEDS: Folic Acid TAB* 1 MG PO SCH (09:20)
[2016-12-20] MEDS: Ticagrelor* 90 MG TAB PO SCH ×2 (09:20→20:40)
[2016-12-20] MEDS: Metoprolol Tartrate TAB* 25 MG PO SCH ×2 (09:21→20:40)
[2016-12-20] MEDS: Aspirin Low Dose CHEW TAB* 81 MG PO SCH (09:23)
[2016-12-20] MEDS: Rivaroxaban TAB(*) 15 MG PO SCH ×2 (09:34→20:40)
[2016-12-20] MEDS ORDERED: Pantoprazole TAB (NF) 20 MG TAB PO SCH (17:00)
[2016-12-20] MEDS ORDERED: Omeprazole CAP* 20 MG PO SCH (17:40)
[2016-12-20] MEDS: Omeprazole CAP* 20 MG PO SCH (17:50)
[2016-12-20] MEDS: Atorvastatin* 80 MG TAB PO SCH (17:50)
--- NOTE | 2016-12-20 19:42 | PN ---
Hospitalist Progress Note Patient was not seen on this date. Labs, vitals, data were all reviewed. Patient discussed with nursing staff.
--- NOTE | 2016-12-20 23:11 | PN ---
PROGRESS NOTE: DATE OF PROGRESS NOTE: 12/20/16 LOCATION: Current location is room 437, bed 1. SUBJECTIVE: Overnight, he has done very well. I spoke with his nurses, who states there have been no new events. He is up, sitting on the side of his bed , stating that he feels much better. He has been ambulating. He states that he feels weaker, but overall does not feel unsteady on his feet. He is wanting to take a shower and shaved this morning and he feels like he is getting back to his normal self. No chest pain. No shortness of breath. No focal numbness , tingling, or weakness. No headaches. No vision changes or speech changes. He is doing well. OBJECTIVE: Vital Signs: Pulse 95 to 94 and 86 to 77. He has been afebrile. Last temperature of 97.7. Blood pressures have been 128/68 to 145/75 to 137/67. His respiratory rate 16, pulse ox 94%. In general, he is a well-nourished, well- developed disheveled gentleman, sitting on the side of his bed. He is pleasant, well dressed, well groomed. HEENT: Normocephalic, atraumatic. Sclerae anicteric. Mucous membranes are moist. Oropharynx is clear. Poor dentition. Neck is supple. Chest: Clear to auscultation bilaterally. Cardiovascular: Regular rate and rhythm. Abdomen is nontender. Extremities: No clubbing or cyanosis. He does have a large bruise on his right forearm that appears about the same, some redness and swelling and bruising developed under his finger nails. On neurologic exam, he is awake and alert. He is oriented to person. He thought it was November, but very redirectable. Thought it was Monday rather than Monday. Knew it is 2016 and knew the President. He knew where he was in the hospital in [facility] in [place]. He states that he has lost track of the day because he has not been paying attention and he does not have his glasses and cannot read the paper. His pupils are equal, round and reactive to light. Extraocular muscles are intact. Visual valero are full. Face is symmetric. Sensation is intact. Hearing is intact. Tongue is midline. Palate is symmetric. Spontaneously moving all extremities to antigravity 5/5 throughout. No drift. Sensation is intact to light touch and pinprick in all 4 extremities. Gait: He is able to stand steady, walking without difficulty, good stride, good arm swing. LABORATORY DATA: He has no new lab work at this time. CURRENT MEDICATIONS: He is on: 1. Tylenol. 2. Albuterol. 3. Aspirin 81 mg daily. 4. Atorvastatin 80 mg daily. 5. Folvite. 6. Metoprolol. 7. Multivitamin. 8. Zosyn. 9. Xarelto 15 mg p.o. b.i.d. 10. Thiamine. 11. Brilinta. ASSESSMENT AND PLAN: Mr. Moncada is a 61-year-old gentleman who was admitted with cardiac arrest, status post cooling, status post stenting, initially had some right- sided weakness, but that has improved. Overall, he has done very well. His motor exam is nonfocal. In general, his examination is nonfocal. He continues to have some very mild memory issues, but these are improving every day. I suspect that the reason he is not oriented to time is just because he has not been paying attention. He is oriented to everything else and my suspicion that he has had any lasting or group home damage as well, I suspect he will continue to improve. He is on maximum therapy. At this point, I would not proceed with MRI as it would not changer fixer. His brain CT from 12/16 showed no acute intracranial pathology, right mastoid effusion, bilateral proptosis, but his examination is completely nonfocal. My suspicion for underlying anoxic brain injury that is long lasting is low. He may have had some mild anoxic injury after the cardiac arrest, but every day is improving and I suspect he will continue to improve. I defer medical management to the primary team, but I will sign off for now. I can see him as an outpatient in my clinic in 4 to 6 weeks and at that time, we can reassess his memory and make any further recommendations. [id number]/[facility] #: [id number]
[2016-12-21] MEDS: Ticagrelor* 90 MG TAB PO SCH (08:15)
[2016-12-21] MEDS: Folic Acid TAB* 1 MG PO SCH (08:15)
[2016-12-21] MEDS: Rivaroxaban TAB(*) 15 MG PO SCH (08:15)
[2016-12-21] MEDS: Thiamine TAB* 100 MG TAB PO SCH (08:15)
[2016-12-21] MEDS: Omeprazole CAP* 20 MG PO SCH (08:15)
[2016-12-21] MEDS: Aspirin Low Dose CHEW TAB* 81 MG PO SCH (08:15)
[2016-12-21] MEDS: Multivitamins ADULT w/MIN LIQ* 15 ML UDC PO SCH (08:15)
[2016-12-21] MEDS: Metoprolol Tartrate TAB* 25 MG PO SCH (08:15)
[2016-12-21 12:41] VITALS: BP 111/74
--- NOTE | 2016-12-21 14:14 | DCNOTE ---
Patient seen this morning. Feels good, has been ambulating around the unit. Anxious for discharge today. Friend will be staying with him. Denies chest pain , SOB. Occasional cough productive of clear sputum. On exam, RRR, s1 and s2 present, no m/g/r, lungs CTA B/L, no w/r/r, abd soft, NTND, BS+, no LE edema Plan to discharge today after ABx complete for PNA. Will need close follow-up with Cardiology, Neurology. New PCP appointment made.
--- NOTE | 2016-12-22 03:39 | DS ---
CONTINUATION ADDENDUM NOW INCLUDED ON THIS REPORT CC: Juan Plummer NP; Pierce Genao MD, Cardiology; Parveen Barnhart MD, Neurology. * DISCHARGE SUMMARY: DATE OF ADMISSION: 12/14/16 DATE OF DISCHARGE: 12/21/16 NEW PRIMARY CARE PHYSICIAN: Juan Plummer NP CONSULTANTS DURING HOSPITALIZATION: 1. Dr. Pierce Genao, Cardiology. 2. Dr. Mariposa Cowart, Neurology. 3. Dr. Parveen Barnhart, Neurology. DISCHARGE MEDICATIONS: 1. Ticagrelor 90 mg by mouth two times daily. 2. Xarelto 15 mg by mouth two times daily x18 additional days, followed by 20 mg by mouth daily. 3. Metoprolol tartrate 50 mg by mouth two times daily. 4. Atorvastatin 80 mg by mouth daily. 5. Aspirin 81 mg by mouth daily. STUDIES DONE DURING HOSPITALIZATION: Initial CT of the brain, impression: No CT stigmata of ischemic stroke or evidence for intracranial hemorrhage. Negative for mass effect. Transthoracic echocardiogram. Study is technically difficult. Study is technically limited to parasternal window. Study technically limited due to smoking history. Study is technically limited due to patient intubated and on a ventilator. Moderate concentric LVH is observed. There is severely decreased left ventricular systolic function. Estimated ejection fraction is 25 % to 30%. There is septal flattening of the intraventricular septum consistent with right ventricular volume or pressure overload. The right ventricle is moderate to severely dilated. The right ventricular global systolic function is moderately reduced. The right atrium is moderately dilated. There is trace mitral regurgitation, trace to mild tricuspid regurgitation. Unable to estimate the right ventricular systolic pressure. There is mild dilatation of the aortic arch. Compared to limited study from 12/14/16 study there has been significant decreased LV systolic function. CT of the brain without contrast on 12/15/16, impression: No acute intracranial abnormality. Repeat echocardiogram on 12/16/16: Moderate concentric LVH. There may be some mild hypokinesis of the inferior wall, left ventricular systolic function is at the lower limit of normal. Visual estimated LVEF is 50%. There is trace mitral regurgitation compared to report of previous study. Overall LV systolic function is significantly better. CT of the chest, impression: Right upper lobe pulmonary emboli involving segmental and subsegmental artery branches. Small right pleural effusion and mild dependent bilateral lower lobe infiltrates suggestive of atelectasis. CT of the brain on 01/02/17, impression: No acute intracranial abnormalities. Right mastoid effusion, bilateral proptosis. Bilateral lower extremity Doppler: No evidence for right lower extremity DVT. No evidence for left lower extremity DVT from the proximal and superficial femoral vein distal. Assessment: Left common femoral vein vein at the confluence with the common femoral vein and profunda femoral vein is precluded due to cardiac catheterization performed one hour prior to this exam. Cardiac catheterization: The patient's catheterization successfully revascularized totally occluded right coronary artery with balloon angioplasty, placement of a stent in the mid right coronary artery, as well as stent placed in the mid circumflex artery. Bilateral carotid Doppler, impression: There is mild plaque present in the carotid bulbs. No hemodynamically significant stenosis is present. PRINCIPAL DISCHARGE DIAGNOSES: 1. Ody-br-pzotkgbd cardiac arrest. 2. ST elevation myocardial infarction, status post coronary intervention. 3. Hypoxic ischemic encephalopathy. 4. Hypothermia protocol. 5. Pneumonia. 6. Pulmonary emboli. CONTINUATION ADDENDUM: HISTORY OF PRESENT ILLNESS AND HOSPITAL SUMMARY: Please see the full history and physical by Dr. Paul Ybarra for full details. Briefly, Mr. Moncada is a 61- year-old man with past medical history of tobacco abuse who was brought in by EMS for cardiac arrest. The patient collapsed at work, received CPR in the field, and was brought to the hospital. He was defibrillated 3 times for V-fib with return of spontaneous circulation. The patient had ST elevations on EKG. Initial catheterization was delayed due to resolved ST segments and concern for possible neurological injury. The patient was given aspirin, statin, started on amiodarone, and underwent hypothermia protocol. He was intubated, started on a heparin drip. He required pressors to maintain his blood pressure. There is concern for possible aspiration pneumonia with findings on chest x-ray in the right lower lobe, so the patient was started on IV Zosyn as well. He subsequently underwent a cardiac catheterization with multiple stents placed as above. He had improvement in his ejection fraction. The patient was also subsequently found to have pulmonary emboli as noted in the CTA above. He was monitored in the ICU. He was monitored in ICU. Neurology followed for his encephalopathy, which was possibly due to anoxia. He was extubated on 12/17/16 with no incident. Pressors were weaned off. The patient was started on metoprolol, in addition to aspirin and Brilinta. He was continued on heparin for a pulmonary embolism and subsequently switched to Xarelto. Over the following days, the patient had significant improvement in his neurological status. He was transferred to the floor. He had been followed by PT and OT who both felt that he was safe for discharge home. Neurology entertained the thought of getting a repeat MRI; but, at this point with his improvement, it was felt that that was not necessary at this time and instead the patient could follow up with neurology as an outpatient. The patient will be discharged on new cardiac medications as above. He completed his antibiotic course for pneumonia here in the hospital. He will need close followup with cardiology and neurology. The patient did not have a PCP, so a new PCP appointment was scheduled for the patient for one week from today. He was instructed about the risks of being on triple therapy with aspirin, Brilinta, and Xarelto. However, this was felt to be necessary at this time. I discussed his hospitalization and treatment at length with him and his friend who is taking him home, and encouraged him to stop smoking and to keep his upcoming outpatient appointments. Total time spent on this discharge - 60 minutes. This is a summary of the hospitalization. Please see the full medical record for further details. [id number]/[facility] #: [id number] Cameron- [id number]/[facility] #: [id number] KATINA
--- NOTE | 2016-12-22 03:48 | DS ---
CONTINUATION ADDENDUM: * DISCHARGE SUMMARY: HISTORY OF PRESENT ILLNESS AND HOSPITAL SUMMARY: Please see the full history and physical by Dr. Paul Ybarra for full details. Briefly, Mr. Moncada is a 61- year-old man with past medical history of tobacco abuse who was brought in by EMS for cardiac arrest. The patient collapsed at work, received CPR in the field, and was brought to the hospital. He was defibrillated 3 times for V-fib with return of spontaneous circulation. The patient had ST elevations on EKG. Initial catheterization was delayed due to resolved ST segments and concern for possible neurological injury. The patient was given aspirin, statin, started on amiodarone, and underwent hypothermia protocol. He was intubated, started on a heparin drip. He required pressors to maintain his blood pressure. There is concern for possible aspiration pneumonia with findings on chest x-ray in the right lower lobe, so the patient was started on IV Zosyn as well. He subsequently underwent a cardiac catheterization with multiple stents placed as above. He had improvement in his ejection fraction. The patient was also subsequently found to have pulmonary emboli as noted in the CTA above. He was monitored in the ICU. He was monitored in ICU. Neurology followed for his encephalopathy, which was possibly due to anoxia. He was extubated on 12/17/16 with no incident. Pressors were weaned off. The patient was started on metoprolol, in addition to aspirin and Brilinta. He was continued on heparin for a pulmonary embolism and subsequently switched to Xarelto. Over the following days, the patient had significant improvement in his neurological status. He was transferred to the floor. He had been followed by PT and OT who both felt that he was safe for discharge home. Neurology entertained the thought of getting a repeat MRI; but, at this point with his improvement, it was felt that that was not necessary at this time and instead the patient could follow up with neurology as an outpatient. The patient will be discharged on new cardiac medications as above. He completed his antibiotic course for pneumonia here in the hospital. He will need close followup with cardiology and neurology. The patient did not have a PCP, so a new PCP appointment was scheduled for the patient for one week from today. He was instructed about the risks of being on triple therapy with aspirin, Brilinta, and Xarelto. However, this was felt to be necessary at this time. I discussed his hospitalization and treatment at length with him and his friend who is taking him home, and encouraged him to stop smoking and to keep his upcoming outpatient appointments. Total time spent on this discharge - 60 minutes. This is a summary of the hospitalization. Please see the full medical record for further details. [id number]/[facility] #: [id number] MARSD
== END 2016-12-21 15:36 | disposition home or self-care (01) | DRG 246 ==
LOC: ED 16:21 → ICU 17:58 → MEDTELE 12-19 13:22
PROVIDERS: ADMIT Internal Medicine Critical Care Medicine; ATTEND Hospitalist
PROC: 5A1945Z Respiratory Ventilation, 24-96 Consecutive Hours (ICD-10-PCS; 2016-12-14)
PROC: 0BH17EZ Insertion of Endotracheal Airway into Trachea, Via Natural or Artificial Opening (ICD-10-PCS; 2016-12-14)
PROC: 04HK33Z Insertion of Infusion Device into Right Femoral Artery, Percutaneous Approach (ICD-10-PCS; 2016-12-14)
PROC: 3E053XZ Introduction of Vasopressor into Peripheral Artery, Percutaneous Approach (ICD-10-PCS; 2016-12-14)
PROC: 06HM33Z Insertion of Infusion Device into Right Femoral Vein, Percutaneous Approach (ICD-10-PCS; 2016-12-14)
PROC: B54BZZA Ultrasonography of Right Lower Extremity Veins, Guidance (ICD-10-PCS; 2016-12-14)
PROC: B44LZZZ Ultrasonography of Femoral Artery (ICD-10-PCS; 2016-12-14)
PROC: 027136Z Dilation of Coronary Artery, Two Arteries with Three Drug-eluting Intraluminal Devices, Percutaneous Approach (ICD-10-PCS; principal; 2016-12-16 12:30)
DX: I21.19 ST elevation (STEMI) myocardial infarction involving other coronary artery of inferior wall (principal); I49.01 Ventricular fibrillation; I26.99 Other pulmonary embolism without acute cor pulmonale; J96.01 Acute respiratory failure with hypoxia; I46.2 Cardiac arrest due to underlying cardiac condition; J69.0 Pneumonitis due to inhalation of food and vomit; G93.1 Anoxic brain damage, not elsewhere classified; R57.0 Cardiogenic shock; J90 Pleural effusion, not elsewhere classified; I95.9 Hypotension, unspecified; I08.1 Rheumatic disorders of both mitral and tricuspid valves; H05.20 Unspecified exophthalmos; I77.819 Aortic ectasia, unspecified site; D72.829 Elevated white blood cell count, unspecified; F17.200 Nicotine dependence, unspecified, uncomplicated; I65.22 Occlusion and stenosis of left carotid artery; I25.10 Atherosclerotic heart disease of native coronary artery without angina pectoris; Z79.01 Long term (current) use of anticoagulants; Z79.82 Long term (current) use of aspirin; Z79.02 Long term (current) use of antithrombotics/antiplatelets
CPT/HCPCS: 36415; 36600; 70450; 71010; 71275; 80048; 80053; 80061; 81003; 81015; 82533; 82550; 82553; 82803; 82947; 83036; 83605; 83690; 83735; 84100; 84443; 84484; 84520; 85025; 85379; 85610; 85730; 86850; 86900; 86901; 87070; 87205; 87641; 93005; 93306; 93308; 93458; 93880; 93970; 94002; 94003; 94760; A9270-GY; C1725; C1757; C1760; C1769; C1876; C1887; C9600-RC; C9601-LC; J0282; J1250; J1327; J1644; J2001; J2250; J2310; J2543; J2704; J3411; J7060; J7611; Q9967

== ENCOUNTER 2016-12-26 04:36 | Inpatient (IN) | payer MEDICAID ==
[2016-12-26] MEDS ORDERED: Ondansetron INJ* 2 MG/ML VIAL ONE (04:42)
[2016-12-26] MEDS ORDERED: Morphine INJ* 2 MG/ML 1 ML SYRINGE (TWO MG - NEW SYRINGE VERSION) ONE (04:43)
[2016-12-26] MEDS ORDERED: fentaNYL* 50 MCG/ML 2 ML VIAL (100 MCG VIAL) ONE (04:50)
[2016-12-26] MEDS ORDERED: Midazolam* 1 MG/ML 5 ML VIAL (5 MG) ONE (04:50)
[2016-12-26] MEDS ORDERED: nitroGLYCERIN DRIP* 250 ML ONE (04:51)
[2016-12-26] MEDS ORDERED: Iohexol 350 (CONTRAST) 200 ML MDV IV ONE ×3 (04:51→06:22)
[2016-12-26] MEDS ORDERED: Lidocaine 1% INJ* 10 MG/ML 30 ML SDV ONE (04:51)
[2016-12-26] MEDS ORDERED: Heparin 2 UNITS/ML IVPREMIX* 3,000 ML IV ONE (04:51)
[2016-12-26 04:54] LABS: Hematocrit 34 % (42-52); Hemoglobin 11.4 g/dl (14.0-18.0); Mean Corpuscular HGB Conc 34 g/dl (31-36); Mean Corpuscular Hemoglobin 34 pg (27-31); Mean Corpuscular Volume 102 fL (80-94); Mean Platelet Volume 8 um3 (7.4-10.4); Red Blood Count 3.35 10^6/ul (4.0-5.4); Red Cell Distribution Width 13 % (10.5-15); White Blood Count 11.9 10^3/ul (3.5-10.8)
[2016-12-26 05:07] LABS: Albumin 3.6 g/dL (3.2-5.2); BUN/Creatinine Ratio 13.3 (8-20); Calcium 8.7 mg/dL (8.6-10.3); EGFR African American 137.1 (>60); EGFR Non-African American 106.6 (>60); Globulin 2.9 g/dL (2-4); Potassium 3.8 mmol/L (3.5-5.0); Total Protein 6.5 g/dL (6.4-8.9)
[2016-12-26 05:12] LABS: Troponin I 0.11 ng/mL (<0.04)
[2016-12-26] MEDS ORDERED: Heparin for STEMI(*) 5,000 UNITS/ML 1 ML VIAL IV ONE (05:19)
[2016-12-26] MEDS ORDERED: Morphine INJ* 2 MG/ML 1 ML CARPUJECT IV ONE (05:20)
[2016-12-26] MEDS ORDERED: Ondansetron INJ* 2 MG/ML VIAL IV ONE (05:20)
--- NOTE | 2016-12-26 05:33 | ED ---
Naresh Valenzuela Rebecca, scribed for Earl Aliceauel on 12/26/16 at 0443 . HPI Chest Pain - HPI Summary HPI Summary: Pt is a 61 y/o M BIBA who presents to ED c/o CP. Pain began suddenly this morning at 0345 and has been constant since onset. Pt was given 2 NTG and 324 mg ASA en route to [facility] ED which alleviated pain from a 10/10 to a 3/10. Sx aggravated by nothing. Denies N/V and dizziness. Pt was admitted 2 weeks ago s/ p cardiac arrest and had 3 stents put in. - History of Current Complaint Chief Complaint: EDChestPainROMI Hx Obtained From: Patient, EMS Onset/Duration: Still Present Time of Onset: 03:45 Timing: Constant Initial Severity: Severe Current Severity: Mild Pain Intensity: 3 Pain Scale Used: 0-10 Numeric Aggravating Factor(s): Nothing Alleviating Factor(s): NTG 123 - 2, EMS Tx - ASA 324 mg, 2 NTG Associated Signs and Symptoms: Positive: Negative - Additional Pertinent History Primary Care Physician: MAURICIO - Allergy/Home Medications Allergies/Adverse Reactions: Allergies Allergy/AdvReac Type Severity Reaction Status Date / Time No Known Allergies Allergy Verified 12/19/16 18:47 PMH/Surg Hx/FS Hx/Imm Hx Respiratory History: Reports: Other Respiratory Problems/Disorders - Hx Cardiac arrest Sensory History: Denies: Hx Contacts or Glasses, Hx Hearing Aid Opthamlomology History: Denies: Hx Contacts or Glasses Infectious Disease History: No Infectious Disease History: Denies: Traveled Outside the [place] in Last 30 Days - Family History Known Family History: Positive: Unknown - Unable to obtain - Social History Alcohol Use: Unable to obtain Smoking Status (MU): Unknown if Ever Smoked Review of Systems Positive: Chest Pain Negative: Vomiting, Nausea Neurological: Other - NEGATIVE: Dizziness All Other Systems Reviewed And Are Negative: Yes Physical Exam - Summary Physical Exam Summary: Appearance: Well appearing, no pain distress Skin: warm, dry, reflects adequate perfusion Head/face: normal Eyes: EOMI, DENISSE ENT: normal Neck: supple, nontender Respiratory: CTA, breath sounds present Cardiovascular: RRR, pulses symmetrical Abdomen: nontender, soft Bowel: present Musculoskeletal: normal, strength/ROM intact Neuro: normal, sensory motor intact, A&Ox3 Triage Information Reviewed: Yes Vital Signs On Initial Exam: Initial Vitals Temp Pulse Resp BP Pulse Ox 98.5 F 65 18 116/78 100 12/26/16 04:37 12/26/16 04:37 12/26/16 04:37 12/26/16 04:37 12/26/16 04:37 Vital Signs Reviewed: Yes Diagnostics - Vital Signs Vital Signs Temp Pulse Resp BP Pulse Ox 12/26/16 04:37 98.5 F 65 18 116/78 100 - Laboratory Lab Results: Lab Results 12/26/16 12/26/16 12/26/16 Range/Units 04:47 04:47 04:47 WBC 11.9 H (3.5-10.8) 10^3/ul RBC 3.35 L (4.0-5.4) 10^6/ul Hgb 11.4 L (14.0-18.0) g/dl Hct 34 L (42-52) % MCV 102 H (80-94) fL MCH 34 H (27-31) pg MCHC 34 (31-36) g/dl RDW 13 (10.5-15) % Plt Count 553 H D (150-450) 10^3/ul MPV 8 (7.4-10.4) um3 INR (Anticoag Therapy) 1.04 (0.89-1.11) APTT 32.6 (26.0-36.3) seconds Sodium 135 (133-145) mmol/L Potassium 3.8 (3.5-5.0) mmol/L Chloride 102 (101-111) mmol/L Carbon Dioxide 27 (22-32) mmol/L Anion Gap 6 (2-11) mmol/L BUN 10 (6-24) mg/dL Creatinine 0.75 (0.67-1.17) mg/dL Est GFR ( Amer) 137.1 (>60) Est GFR (Non-Af Amer) 106.6 (>60) BUN/Creatinine Ratio 13.3 (8-20) Glucose 117 H (70-100) mg/dL Calcium 8.7 (8.6-10.3) mg/dL Total Bilirubin 1.00 (0.2-1.0) mg/dL AST 32 (13-39) U/L ALT 74 H (7-52) U/L Alkaline Phosphatase 143 H (34-104) U/L Total Creatine Kinase 106 (10-223) U/L CK-MB (CK-2) 2.6 (0.6-6.3) ng/mL Myoglobin 31.8 (17.4-105.7) ng/mL Troponin I 0.11 H* (<0.04) ng/mL B-Natriuretic Peptide ( - 100) pg/mL Total Protein 6.5 (6.4-8.9) g/dL Albumin 3.6 (3.2-5.2) g/dL Globulin 2.9 (2-4) g/dL Albumin/Globulin Ratio 1.2 (1-3) LDL Cholesterol Direct 106 mg/dL Blood Type Antibody Screen 12/26/16 12/26/16 Range/Units 04:47 04:47 WBC (3.5-10.8) 10^3/ul RBC (4.0-5.4) 10^6/ul Hgb (14.0-18.0) g/dl Hct (42-52) % MCV (80-94) fL MCH (27-31) pg MCHC (31-36) g/dl RDW (10.5-15) % Plt Count (150-450) 10^3/ul MPV (7.4-10.4) um3 INR (Anticoag Therapy) (0.89-1.11) APTT (26.0-36.3) seconds Sodium (133-145) mmol/L Potassium (3.5-5.0) mmol/L Chloride (101-111) mmol/L Carbon Dioxide (22-32) mmol/L Anion Gap (2-11) mmol/L BUN (6-24) mg/dL Creatinine (0.67-1.17) mg/dL Est GFR ( Amer) (>60) Est GFR (Non-Af Amer) (>60) BUN/Creatinine Ratio (8-20) Glucose (70-100) mg/dL Calcium (8.6-10.3) mg/dL Total Bilirubin (0.2-1.0) mg/dL AST (13-39) U/L ALT (7-52) U/L Alkaline Phosphatase (34-104) U/L Total Creatine Kinase (10-223) U/L CK-MB (CK-2) (0.6-6.3) ng/mL Myoglobin (17.4-105.7) ng/mL Troponin I (<0.04) ng/mL B-Natriuretic Peptide 174 H ( - 100) pg/mL Total Protein (6.4-8.9) g/dL Albumin (3.2-5.2) g/dL Globulin (2-4) g/dL Albumin/Globulin Ratio (1-3) LDL Cholesterol Direct mg/dL Blood Type A Positive Antibody Screen Pending Result Diagrams: 12/26/16 04:47 12/26/16 04:47 Lab Statement: Any lab studies that have been ordered have been reviewed, and results considered in the medical decision making process. - Radiology CXR Radiology Interpretation Completed By: ED Physician - CHF - EKG 0434 Cardiac Rate: NL - 65 bpm EKG Rhythm: Sinus Rhythm EKG Interpretation: ST elevations in the inferior leads Chest Pain Course/Dx - Course Assessment/Plan: Pt is a 61 y/o M BIBA who presents to ED c/o CP. Pain began suddenly this morning at 0345 and has been constant since onset. Pt was given 2 NTG and 324 mg ASA en route to [facility] ED which alleviated pain from a 10/10 to a 3/ 10. Sx aggravated by nothing. Denies N/V and dizziness. Pt was admitted 2 weeks ago s/p cardiac arrest and had 3 stents put in. EKG is sinus rhythm with ST elevations in the inferior leads. CXR reveals CHF. In the ED course, pt received Brilinta. STEMI code was called at 0421, 10 minutes OBSTETRICS GYN. Paged Dr. Genao who accepts pt for admission. Pt will be admitted with Dx of acute inferior MA. He understands and agrees. - Chest Pain Differential Diagnosis/HQI/PQRI: Acute MA, ACS, Aortic Aneurysm, CHF, Pulmonary Embolism - Diagnoses Provider Diagnoses: Acute inferior myocardial infarction During the Visit The Following Alert/Code Occurred: STEMI - Called at 0421, 10 minutes OBSTETRICS GYN - Provider Notifications Discussed Care Of Patient With: Pierce Genao Time Discussed With Above Provider: 04:20 Instructed by Provider To: Other - Paged to come to the ED and he accepts the pt for admission. - Critical Care Time Critical Care Time: 30-74 min - 30 minutes Discharge - Discharge Plan Condition: Critical Disposition: ADMITTED TO [facility] Referrals: No Primary Care Phys,NOPCP [Primary Care Provider] - The documentation as recorded by the Naresh ansari Rebecca accurately reflects the service I personally performed and the decisions made by Deanne dave Emmanuel.
[2016-12-26] MEDS ORDERED: Ticagrelor* 90 MG TAB PO SCH ×2 (05:35→09:00)
[2016-12-26] MEDS ORDERED: Bivalirudin(*) 250 MG VIAL ONE ×2 (06:20→06:45)
[2016-12-26] MEDS ORDERED: Heparin 2 UNITS/ML IVPREMIX* 1,000 ML IV ONE (06:28)
[2016-12-26] MEDS ORDERED: Nitroglycerin TAB 0.4 MG* 0.4 MG TAB SL PRN (06:33)
[2016-12-26] MEDS ORDERED: NS 0.9% 1000 ML* 1,000 ML IV SCH (06:45)
[2016-12-26] MEDS ORDERED: Norepinephrine 16MCG/ML IVPRE* 4,000 MCG/250 ML BAG IV ONE (06:46)
[2016-12-26] MEDS ORDERED: fentaNYL* 50 MCG/ML 2 ML VIAL (100 MCG VIAL) IV PRN (06:48)
[2016-12-26] MEDS ORDERED: Docusate CAP* 100 MG PO PRN (06:48)
[2016-12-26] MEDS ORDERED: oxyCODONE/Acetamin 5/325 MG* TAB PO PRN (06:48)
[2016-12-26] MEDS ORDERED: Zolpidem TAB* 5 MG PO PRN (06:48)
[2016-12-26] MEDS ORDERED: Acetaminophen TAB* 325 MG PO PRN (06:48)
[2016-12-26] MEDS ORDERED: Atorvastatin* 80 MG TAB PO ONE (07:28)
[2016-12-26] MEDS ORDERED: Prasugrel (NF) 10 MG PO ONE (07:30)
[2016-12-26] MEDS ORDERED: Bivalirudin(*) 250 MG VIAL SCH (08:00)
--- NOTE | 2016-12-26 08:08 | RAD ---
INDICATION: Chest pain COMPARISON: Chest x-ray dated December 18, 2016 TECHNIQUE: Single AP portable view of the chest was obtained. FINDINGS: Image quality is compromised due to the relative inferiority of a portable chest x-ray. The heart and mediastinum exhibit normal size and contour. The pulmonary vasculature is mildly engorged and indistinct. There is linear density at the right lung base most consistent with atelectasis. The lungs are otherwise grossly clear. There is no evidence of a large pleural effusion. Visualized bones are normal for the patient's age. IMPRESSION: In the correct clinical setting, chest x-ray findings could be compatible with mild congestive heart failure potentially with atelectasis at the right lung base.
[2016-12-26] MEDS ORDERED: Metoprolol Tartrate TAB* 50 mg PO SCH (09:00)
[2016-12-26] MEDS: Metoprolol Tartrate TAB* 25 MG PO SCH (09:07)
[2016-12-26 11:45] LABS: Troponin I > 82.00 ng/mL (<0.04)
[2016-12-26 12:09] LABS: Creatine Kinase 2506 U/L (10-223)
--- NOTE | 2016-12-26 13:32 | HP ---
ADMISSION HISTORY AND PHYSICAL: DATE OF ADMISSION: 12/26/2016. CHIEF COMPLAINT: The patient with chest discomfort with acute ST segment elevation, posterior inferior myocardial infarction. HISTORY OF PRESENT ILLNESS: The patient is a 61-year-old gentleman who was in his usual state of health. Early this morning, around 3:15 he developed the onset of chest discomfort. With it, he was mildly short of breath. He denied any nausea or vomiting. He denied any dizziness. He denied any radiation to the throat or jaw. Ambulance was summoned and apparently revealed an acute ST segment elevation, inferior wall myocardial infarction and [facility] was notified en route of this. Repeat EKG in the emergency room continued to show ST segment elevation in the inferior leads and ST segment depression in the early precordial leads suggesting a posterior inferior wall myocardial infarction. The patient received 4000 units of heparin. The patient had already received aspirin en route with nitroglycerin as well. On my asking the patient, he initially told me that he had taken his Brilinta last night and such we gave him 90 mg of Brilinta to keep the Brilinta level stable. The risks and benefits were explained, he wished to proceed, and as such he was brought emergently to the cardiovascular laboratory. PAST MEDICAL HISTORY: The patient is status post out of hospital cardiac arrest with hospitalization at [facility] from 12/14/16 to 12/21/16. During that time, CAT scans were done that showed no evidence of any significant stroke. He had transient ST segment elevation on admission and after being cooled and rewarmed and awakened and found to be lucid, the decision was made to proceed to the cardiovascular laboratory after neurology felt there was no contraindication for full dose anticoagulation and dual antiplatelet therapy. In the cardiac catheterization laboratory, the images revealed a totally occluded proximal right coronary artery. The circumflex artery was a codominant system with a haze area in the mid portion with some views suggesting as much as 85% narrowed. There was also retrograde filling in the right coronary artery at least back to the midportion from the left system. With effort, the right coronary artery was reopened and stented and the circumflex artery midportion was stented as well. Past medical history also includes in addition to the CAD, history of hyperlipidemia, a history of prior smoking. He denies any known history of hypertension or diabetes and he denies any significant family history of coronary artery disease. REVIEW OF SYSTEMS: Emergently proceeding to the cardiovascular laboratory included no known history of definitive stroke or hemorrhagic bleed or cerebral bleed. No history of renal insufficiency, no history of contrast allergy and no history of excessive bleeding. PHYSICAL EXAMINATION VITAL SIGNS: When I saw him in the emergency room revealed vital signs, blood pressure was 116/78 with a pulse of 65, afebrile, O2 saturation 100% on nasal cannula. HEENT: Conjunctivae pink. Sclerae clear. NECK: Supple. No increased JVP. Carotids with good upstroke and volume without bruits. LUNGS: Revealed no accessory muscle usage. There is good excursion. Lungs are relatively clear to A and P. HEART: Reveals no visible heaves, no palpable heaves or thrills. Normal S1, S2. No significant S3, S4 or gallop. No significant systolic or diastolic murmur. ABDOMEN: Soft, nontender. EXTREMITIES: Without clubbing, cyanosis, or pitting edema. The right groin area has mild ecchymosis, still remaining from the prior wound site. There is no significant hematoma and no bruit noted. NEURO: The patient seems alert and oriented. MUSCULOSKELETAL: The patient moves all extremities appropriately. PSYCHOLOGICAL: The patient with normal affect. DIAGNOSTIC STUDIES: Laboratory results pending at the time of initially seeing the patient and EKG was as mentioned with ST segment elevation inferiorly and depression anteriorly suggesting the inferoposterior wall myocardial infarction. OVERALL ASSESSMENT: Stephane now presents in the throws of acute inferior posterior wall ST segment elevation myocardial infarction. At this point in time, the risks, benefits were explained and he will taken emergently to the cardiovascular lab where further therapy will be performed depending on what we find. Obviously maintaining his dual antiplatelet therapy is crucial in addition to his high dose statin therapy and also his beta-darya therapy, which he was discharged on at home. ADDENDUM: After the patient was brought to the intensive care unit, he was queried again with respect to his medication and now admits that he had not taken any of his medications other than a baby aspirin since discharge. At this point in time, we will load him with 60 mg of Prasugrel emergently and continue the Angiomax for at least another hour to hour and half to allow the Prasugrel to get on board. We will reinstitute beta-darya therapy and titrate back up as currently his pressure is in slightly lower range. We will give him high dose statin emergently now and continue it. We will investigate the exact nature behind why he was not taking his medications and to make sure that on discharge, we will have careful followup such that he will be faithfully taking medications. [id number]/[facility] #: [id number] KATINA
[2016-12-26] MEDS: Ferrous Sulfate TAB* 325 MG PO SCH (16:52)
[2016-12-26] MEDS: Atorvastatin* 80 MG TAB PO SCH (16:52)
[2016-12-26 17:40] LABS: Troponin I 79.29 ng/mL (<0.04)
[2016-12-26 23:36] LABS: Troponin I 53.97 ng/mL (<0.04)
[2016-12-27] MEDS: Metoprolol Tartrate TAB* 25 MG PO SCH ×3 (04:44→20:59)
[2016-12-27 05:18] LABS: Hematocrit 31 % (42-52); Hemoglobin 10.6 g/dl (14.0-18.0); Mean Corpuscular HGB Conc 34 g/dl (31-36); Mean Corpuscular Hemoglobin 34 pg (27-31); Mean Corpuscular Volume 100 fL (80-94); Mean Platelet Volume 8 um3 (7.4-10.4); Red Blood Count 3.08 10^6/ul (4.0-5.4); Red Cell Distribution Width 14 % (10.5-15); White Blood Count 11.8 10^3/ul (3.5-10.8)
[2016-12-27 05:37] LABS: Albumin 3.1 g/dL (3.2-5.2); BUN/Creatinine Ratio 15.9 (8-20); Calcium 8.5 mg/dL (8.6-10.3); EGFR African American 167.6 (>60); EGFR Non-African American 130.4 (>60); Globulin 2.6 g/dL (2-4); HDL Cholesterol 22.1 mg/dL; Potassium 3.7 mmol/L (3.5-5.0); Total Bilirubin 0.8 mg/dL (0.2-1.0); Total Protein 5.7 g/dL (6.4-8.9)
[2016-12-27] MEDS: Ferrous Sulfate TAB* 325 MG PO SCH ×2 (08:32→16:28)
[2016-12-27] MEDS: Aspirin Low Dose CHEW TAB* 81 MG PO SCH (08:33)
[2016-12-27] MEDS: CMC:Prasugrel (NF) 10 MG PO SCH (08:33)
--- NOTE | 2016-12-27 14:19 | ECHO ---
Patient: SHEYLA AMANDA [facility] Rec#: [id number] : 1955 Date: 12/27/2016 Age: 61y Height: 180.3 cm / 71.0 in Weight: 74.8 kg / 164.9 lbs Sex: M BSA: 1.9 Room#: ICU 1 Admit Date#: 12/26/2016 Type: Inpatient Referring: Pierce Genao MD Reading: Pierce Genao MD Artificial Teeth Inspector: Citlalli Maldonado RN RDCS Transthoracic Echocardiogram Indication: STEMI S/P PCI BP: 97/57 HR: 73 Rhythm: NSR with PACs Findings History: CAD, cardiac arrest, prior PCI, former smoker Technical Comments: The study quality is fair. The study is technically limited due to the patient's smoking history. Completed at 0910. Left Ventricle: The left ventricular chamber size is normal. Mild concentric left ventricular hypertrophy is observed. There is a focal wall motion abnormality present.There is severe hypo to akinesis of the proximal low posterolateral wall. Left ventricular systolic function is at the lower limits of normal. The estimated ejection fraction is 50-55%. There is no consistent Doppler evidence of clinically significant diastolic dysfunction. Left Atrium: The left atrium is mildly dilated. Right Ventricle: The right ventricular cavity size is normal. The right ventricular global systolic function is mildly reduced. Right Atrium: The right atrium is mildly dilated. Aortic Valve: The aortic valve is trileaflet. The aortic valve leaflets are mildly thickened. There is no evidence of aortic regurgitation. There is no evidence of aortic stenosis. Mitral Valve: The mitral valve leaflets are mildly thickened. There is trace to mild mitral regurgitation. There is no evidence of mitral stenosis. Tricuspid Valve: The tricuspid valve leaflets are normal. There is trace to mild tricuspid regurgitation. There is evidence of mild to moderate pulmonary hypertension. There is no tricuspid stenosis. Pulmonic Valve: The pulmonic valve structure is not well visualized. There is no evidence of pulmonic regurgitation. There is no pulmonic stenosis. Pericardium: There is no significant pericardial effusion. A pericardial fat pad is visualized. Aorta: There is no dilatation of the ascending aorta. There is no dilatation of the aortic arch. There is no dilation of the aortic root. Pulmonary Artery: The main pulmonary artery is not well visualized. Venous: The inferior vena cava is dilated. There is a greater than 50% respiratory change in the inferior vena cava dimension. Conclusions Mild concentric left ventricular hypertrophy is observed. There is a focal wall motion abnormality present.There is severe hypo to akinesis of the proximal low posterolateral wall. Left ventricular systolic function is at the lower limits of normal. The estimated ejection fraction is 50-55%. The right ventricular global systolic function is mildly reduced. The right atrium is mildly dilated. The left atrium is mildly dilated. There is trace to mild mitral regurgitation. There is trace to mild tricuspid regurgitation. There is evidence of mild to moderate pulmonary hypertension. Compared to report of limited study from 12/16/16 the focal wall motion abnormality seen now is more severe. Measurements Name Value Normal Range RVDdMajor (2D) 4 cm (2.2 - 4.4) RAd ISD 4CH 5.3 cm (3.4 - 4.9) RA (A4C)W 3.5 cm (2.9 - 4.6) IVSd (2D) 1.1 cm (0.6 - 1) LVPWd (2D) 1.1 cm (0.6 - 1) LVIDd (2D) 4.2 cm (3.6 - 5.4) LVIDs (2D) 3.4 cm - LV FS (2D) 19 % (25 - 45) Aortic Annulus 2.1 cm (1.4 - 2.6) Ao root diameter (2D) 2.9 cm (2.1 - 3.5) Ascending Ao 2.9 cm (2.1 - 3.4) Aortic arch 2.6 cm (1.8 - 3.4) LA dimension (AP) 2D 4 cm (2.3 - 3.8) LAd ISD 4CH 5 cm (2.9 - 5.3) LA ISD 4CH W 3.5 cm (2.5 - 4.5) Name Value Normal Range LA ESV SP 4CH (A/L) 72 ml - LA ESV SP 2CH (A/L) 80 ml - LA ESV BP (A/L) 80 ml - LA ESV BP (A/L) index 40.8 ml/m2 - LA ESV SP 4CH (MOD) 64 ml - LA ESV SP 2CH (MOD) 76 ml - Name Value Normal Range MV E-wave Vmax 1 m/sec - MV deceleration time 197 msec - MV A-wave Vmax 0.76 m/sec - MV E:A ratio 1.4 ratio - LV septal e' Vmax 0.09 m/sec - LV lateral e' Vmax 0.09 m/sec - LV E:e' septal ratio 11.1 ratio - LV E:e' lateral ratio 11.1 ratio - Name Value Normal Range AV Vmax 1.5 m/sec - AV VTI 29 cm - AV peak gradient 9.3 mmHg - AV mean gradient 5.2 mmHg - LVOT Vmax 1.2 m/sec - LVOT VTI 22.8 cm - LVOT peak gradient 5.5 mmHg - LVOT mean gradient 3.3 mmHg - DENNIS Vmax 1.2 m/sec - Name Value Normal Range TR Vmax 2.9 m/sec - TR peak gradient 34 mmHg - RAP 8 mmHg - RVSP 42 mmHg - IVC diameter 2.2 cm - Name Value Normal Range PV Vmax 0.88 m/sec -
[2016-12-27] MEDS: Atorvastatin* 80 MG TAB PO SCH (16:28)
[2016-12-27] MEDS ORDERED: diPHENhydraMINE PO* 50 MG PO PRN (23:49)
[2016-12-27] MEDS: Enoxaparin(*) 40 MG/0.4 ML SYR SUBCUT SCH (23:59)
[2016-12-28] MEDS: diPHENhydraMINE PO* 25 MG PO PRN ×2 (00:22→08:34)
[2016-12-28] MEDS: CMC:Prasugrel (NF) 10 MG PO SCH (09:28)
[2016-12-28] MEDS: Ferrous Sulfate TAB* 325 MG PO SCH ×2 (09:29→17:47)
[2016-12-28] MEDS: Metoprolol Succinate XL TAB* 25 MG PO SCH (09:29)
[2016-12-28] MEDS: Aspirin Low Dose CHEW TAB* 81 MG PO SCH (09:29)
[2016-12-28] MEDS: diPHENhydraMINE PO* 25 MG PO SCH ×2 (14:50→20:42)
[2016-12-28] MEDS: Atorvastatin* 80 MG TAB PO SCH (17:47)
--- NOTE | 2016-12-28 23:30 | CATH ---
CARDIAC CATHETERIZATION INTERVENTIONAL REPORT: DATE OF PROCEDURE: 12/26/16 INDICATION FOR PROCEDURE: The patient presented with acute ST segment elevation posterior inferior wall myocardial infarction with a prior history of recent stents placed to the mid circumflex and the right coronary artery. PROCEDURE: The procedure was coronary arteriography, thrombectomy, placement of a 3.5 x 38 mm long Synergy drug-eluting stent in the mid circumflex with balloon angioplasty of the mid obtuse marginal branch, ostium. DESCRIPTION OF THE PROCEDURE: The patient was interviewed in the emergency room where the risks and benefits were explained. He had already received aspirin therapy. He had agreed to proceed to the cardiac specialist employee labor relations. He received Brilinta 90 mg in the emergency room as he initially stated that he was taking his Brilinta. He was brought to the cardiovascular laboratory where an ACT was checked and found to be subtherapeutic. He received a bolus of Angiomax and Angiomax drip was started. During the course of the specialist employee labor relations intervention, he received 1 bolus of Levophed 32 mcg for hypotension. He also received intracoronary nitroglycerin as well. Coronary arteriography was performed utilizing a 5-Thai 4 Alexandre left coronary catheter and a 5-Thai 4 Alexandre right coronary catheter. Intervention was performed utilizing a 6- Thai VL 3.5 guide catheter, a 190-mg All Star wire, a Pronto V4 extraction catheter. The stent utilized was a 3.5 x 38 mm long Synergy drug-eluting stent in the circumflex dilated to high pressures with wiring of the mid obtuse marginal branch and balloon angioplasty to that utilizing a 2.5 x 8 mm long Emerge balloon with kissing technique with a 3.0 x 12 mm long Emerge balloon in the mid circumflex at the take off for the obtuse marginal branch. Following this, there appeared to be question of distal occlusion of the right coronary artery. A 1.5 x 12 mm long Emerge push balloon was placed there and inflations were made. Of note, nitroglycerin was given as well with response most likely suggesting that this was spasm to the distal vessel. At the end, the case injections were made in multiple views to assess patency of the vessel. The total contrast used was 300 cc of omnipaque contrast. The radiation exposure included 25.2 minutes of fluoro time. The air kerma radiation was 3245 milligray. The DAPA radiation was 44910 microgray per meter square. RESULTS: CORONARY ARTERIOGRAPHY: A. Left coronary artery. 1. Left main - widely patent with no lesions noted. 2. Left anterior descending artery - the left anterior descending artery revealed tapering of the vessels throughout its course, but no focal stenoses were seen. Multiple diagonal branches were noted without significant lesion. 3. Circumflex artery - a codominated vessel totally occluded in its proximal portion. On reconstitution of the vessel and after stenting, the artery supplied a moderate sized mid obtuse marginal branch followed by multiple low lying posterior left ventricular branches with the last one paralleling the right-sided posterior descending artery. B. Right coronary artery - a codominant vessel supplying a very thin, short posterior descending artery. There were mild luminal irregularities noted, but no significant lesions seen throughout the course of the vessel. A mid right ventricular branch thin in nature had a 65% to 70% ostial lesion noted. INTERVENTION INTO CIRCUMFLEX ARTERY: Successful reconstitution of totally occluded proximal circumflex with thrombectomy and placement of a 3.5 x 38 mm long Synergy drug-eluting stent dilated to high pressures to obtain 3.7 mm with ELIO-3 flow, no dissection seen , and 0% residual stenosis. INTERVENTION INTO MID OBTUSE MARGINAL OSTIUM: Successful reduction of critical 85% to 90% lesion with balloon angioplasty utilizing a 2.5 x 8 mm Emerge balloon with residual stenosis of 45%. OVERALL ASSESSMENT: Successful intervention in to totally occluded circumflex artery with thrombectomy and placement of drug-eluting stent as described above. The patient will be maintained on dual antiplatelet therapy and aggressive risk factor management with high-dose statin therapy and beta-darya therapy in consideration of ADELA therapy depending on left ventricular systolic function. ADDENDUM: Once the patient was brought to the intensive care unit, on further querying of the patient, he then admitted that he has not taken any medications since 1 day after discharge. He was never able to crab picker his medicines reportedly because they were too expensive and he has only taken a baby aspirin a day. At that point in time, he had initial loading dose of 60 mg of prasugrel in order to maintain them on a once a day dosing of medication for possible drug compliance in the future. His Angiomax drip was restarted within 15 minutes of it being stopped when he came over to the intensive care unit and maintained for another hour and a half to 2 hours. We will have a social service consult and meeting with the family to discuss how we will avoid this scenario in the future. [id number]/[facility] #: [id number] KATINA
[2016-12-28] MEDS: Enoxaparin(*) 40 MG/0.4 ML SYR SUBCUT SCH (23:34)
[2016-12-29 07:43] LABS: Hematocrit 37 % (42-52); Hemoglobin 12.6 g/dl (14.0-18.0); Mean Corpuscular HGB Conc 34 g/dl (31-36); Mean Corpuscular Hemoglobin 35 pg (27-31); Mean Corpuscular Volume 101 fL (80-94); Mean Platelet Volume 8 um3 (7.4-10.4); Red Blood Count 3.62 10^6/ul (4.0-5.4); Red Cell Distribution Width 14 % (10.5-15); White Blood Count 9.3 10^3/ul (3.5-10.8)
[2016-12-29] MEDS: Ferrous Sulfate TAB* 325 MG PO SCH (07:50)
[2016-12-29] MEDS: diPHENhydraMINE PO* 25 MG PO SCH (07:51)
[2016-12-29] MEDS: Aspirin Low Dose CHEW TAB* 81 MG PO SCH (07:51)
[2016-12-29] MEDS: CMC:Prasugrel (NF) 10 MG PO SCH (07:53)
[2016-12-29 08:10] LABS: BUN/Creatinine Ratio 17.4 (8-20); Calcium 8.8 mg/dL (8.6-10.3); EGFR African American 150.9 (>60); EGFR Non-African American 117.4 (>60); Potassium 3.8 mmol/L (3.5-5.0)
[2016-12-29] MEDS: Metoprolol Succinate XL TAB* 25 MG PO SCH (09:17)
[2016-12-29 11:51] VITALS: BP 90/61
[2016-12-29] MEDS ORDERED: Rivaroxaban TAB(*) 20 MG TAB PO SCH (12:00)
--- NOTE | 2016-12-30 22:13 | DS ---
DISCHARGE SUMMARY: DATE OF ADMISSION: 12/26/16 DATE OF DISCHARGE: 12/29/16 FINAL DIAGNOSES: 1. Acute ST-segment elevation myocardial infarction. 2. Hyperlipidemia. 3. History of smoking. 4. Recent transient anoxic encephalopathy. HOSPITAL COURSE: The patient is a 61-year-old gentleman with a prior history in the recent past of cardiac arrest out of hospital with successful resuscitation with transient anoxic encephalopathy who was pooled and eventually underwent cardiac catheterization with placements of stent and a totally occluded right coronary artery as well as mid circumflex. The patient was discharged home and apparently went to his pharmacy to get his medications and not realizing that he had Medicaid when he was presented with a bill of 200 dollars for his medications, he told them he could not afford them and went home. From that point on until the time of presentation on this hospitalization , he only took a baby aspirin a day. He did not take his Brilinta or any of his other cardiac medications. On the day of admission, he developed chest discomfort around 3:15 and within 30 minutes, called the ambulance and was found to have an acute ST-segment elevation inferior wall myocardial infarction. He was transported to [facility]. In the emergency room, he still had ongoing symptoms and as such , he was taken emergently to the cardiovascular laboratory. There, the right coronary artery was found to be open with patent stents, but the circumflex was totally occluded just prior to stent placement. The total occlusion was reopened and necessitated placement of another intracoronary stent and as such, a 3.5 x 38 mm long Synergy drug-eluting stent was deployed with post-deployment inflations to 3.7 mm. An obtuse marginal branch coming off this area was wired through both stents and balloon angioplasty was performed to the ostium of this. During the hospital course, he had an echocardiogram on 12/27/16 that revealed an ejection fraction close to 50% to 55%, but severe hypo to akinesis of the proximal low posterolateral wall was noted. He had trace to mild mitral regurgitation and trace to mild tricuspid regurgitation with mild to moderate pulmonary hypertension. Right ventricular systolic function was mildly reduced (of note during the past hospitalization, he had had severe right ventricular systolic dysfunction that improved overtime). During the course of this hospitalization, there was extensive consultation with oil field caser from the very beginning who worked with him and his family. They confirmed that he did have Medicaid. By the time of discharge with him up and about, he was doing well with the exception of having developed a rash. During the course of the hospitalization prior to the rash starting, new medications have included subcutaneous enoxaparin as well as iron therapy. His other medications had included: 1. Atorvastatin 80 mg a day. 2. Aspirin 81 mg a day. 3. Metoprolol tartrate switching over to succinate 25 mg a day for ease of daily taking. 4. Prasugrel 10 mg a day. The decision was then made also to reinstitute his anticoagulation in light of his history of prior small pulmonary embolism in the right lung on the prior hospitalization. At the time of discharge from that hospitalization, he was on Eliquis b.i.d. For ease of taking it, we switched him to Xarelto 20 mg a day. We will most likely continue that for 3 months if he tolerates that, although the pulmonary embolism was a very small one and Dr. Ybarra, the zigzag tunnel elastic operator on the last hospitalization, was debating whether or not anticoagulation would be pursued, but he ultimately felt it would be appropriate. During the last hospitalization, no DVT or source of embolism was found. Of note, the patient's cardiac enzymes had a rapid peak on the first sample to CPK of 2506 with MB greater than 300, troponin greater than 82 with a downward trend from that. His EKG acutely had shown ST segment elevation in the inferior leads and ST segment depression in the precordial leads from the inferoposterior NE. By the final recorded EKG on 12/28/16, there were T wave inversions in II, III, and aVF. There were preserved R-waves albeit small ones in nature with low voltage in the limb leads in the inferior leads and no significant Q-waves had developed. PHYSICAL EXAMINATION: At the time of discharge, his examination revealed vital signs: Blood pressure 90 to 95/61, pulse was regular in the 60s to 70s, respirations 16, O2 saturation 98% on room air, afebrile. Neck was supple. No increased JVP. Carotids had good upstroke and volume without bruits. Conjunctivae pink. Sclerae clear. Lungs revealed no accessory muscle usage. There was fair excursion. There was mild decreased breath sounds bilaterally, but no active rales, rhonchi or wheezes. Heart revealed no visible heaves, no palpable heaves or thrills. Normal S1 and S2 with no S3, S4, or gallop. No significant systolic or diastolic murmurs were appreciated. Abdomen was soft and nontender without organomegaly. Extremities were without clubbing, cyanosis or maribell pitting edema. The right groin wound area was well healed with no hematoma or bruits and good distal pulses. Neuro: The patient was alert and oriented. Musculoskeletal: The patient walked with normal gait. Psychiatric: The patient with normal affect. LABORATORY DATA: Last laboratory results on the day of discharge included hemoglobin and hematocrit of 12.6 and 37 with a platelet count of 573,000, white count was 9300. BUN and creatinine were 12 and 0.6. Sodium 137, potassium 3.8, chloride 105, bicarbonate 27. Final medications on the day of discharge included: 1. Aspirin 81 mg a day. 2. Atorvastatin 80 mg once a day. 3. Metoprolol succinate 25 mg once a day. 4. Sublingual nitroglycerin as needed. 5. Xarelto 20 mg a day. Of note when trying to get him prasugrel through his pharmacy with Medicaid with no co-payment, apparently that could be not achieved and as such, he was switched back to Brilinta with 90 mg b.i.d. after taking a loading dose on Monday morning of 180 mg a day. I will be seeing him back in the office in approximately 4 days after discharge to make sure continuity is present and the visiting nurses service is coming on 12/30/16, to establish a pill box for him with his medications and will be seeing at least 3 times a week initially. The patient received his stent card as well as education booklet again. He will be working on not smoking anymore. He will be bringing all his pill bottles to our office for us to check to make sure he is taking them appropriately as well. The total amount of time involved in his discharge on 12/29/16 included close to 6 hours that entails examining the patient, discussing at length his medications with him actually writing them down with him in addition to spending at least an hour to an hour and a half discussing the case with the social media marketer as well as phone calls to his pharmacy made personally by myself to make sure that his medications were available. [id number]/[facility] #: [id number] KATINA
== END 2016-12-29 14:30 | disposition home or self-care (01) | DRG 174 ==
LOC: ED 04:36 → ICU 06:00 → MEDTELE 12-27 14:06
PROVIDERS: ADMIT Internal Medicine Cardiovascular Disease; ATTEND Internal Medicine Cardiovascular Disease
PROC: 02703ZZ Dilation of Coronary Artery, One Artery, Percutaneous Approach (ICD-10-PCS; 2016-12-26)
PROC: 02C03ZZ Extirpation of Matter from Coronary Artery, One Artery, Percutaneous Approach (ICD-10-PCS; 2016-12-26)
PROC: B2111ZZ Fluoroscopy of Multiple Coronary Arteries using Low Osmolar Contrast (ICD-10-PCS; 2016-12-26)
PROC: 027034Z Dilation of Coronary Artery, One Artery with Drug-eluting Intraluminal Device, Percutaneous Approach (ICD-10-PCS; principal; 2016-12-26 05:00)
DX: I21.19 ST elevation (STEMI) myocardial infarction involving other coronary artery of inferior wall (principal); I08.1 Rheumatic disorders of both mitral and tricuspid valves; I27.20 Pulmonary hypertension, unspecified; E78.5 Hyperlipidemia, unspecified; I21.29 ST elevation (STEMI) myocardial infarction involving other sites; R21 Rash and other nonspecific skin eruption; I25.10 Atherosclerotic heart disease of native coronary artery without angina pectoris; Z87.891 Personal history of nicotine dependence; Z95.5 Presence of coronary angioplasty implant and graft; Z79.82 Long term (current) use of aspirin; Z86.711 Personal history of pulmonary embolism; Z79.02 Long term (current) use of antithrombotics/antiplatelets
CPT/HCPCS: 36415; 71010; 80048; 80053; 80061; 82550; 82553; 83721; 83874; 83880; 84484; 85025; 85027; 85379; 85610; 85730; 86850; 86900; 86901; 87641; 93005; 93306; 99156; 99157; A9270-GY; C1725; C1757; C1769; C1876; C1887; C9606-LC; J0583; J1644; J1650; J2001; J2250; J2270; J2405; J3010

== ENCOUNTER 2017-10-27 15:10 | Emergency (ER) | payer OTHER ==
[2017-10-27 15:33] VITALS: BP 140/77
--- NOTE | 2017-10-27 15:49 | UC ---
Dental HPI - HPI Summary HPI Summary: Right lower dental pain and swelling---multiple decayed and rotting teeth, + swelling----has not seen nor called for a dentist appointment - History of Current Complaint Chief Complaint: UCDentalProblem Stated Complaint: TOOTH ACHE Time Seen by Provider: 10/27/17 15:34 Hx Obtained From: Patient Onset/Duration: Gradual Onset, Lasting Days - 2, Still Present, Worse Since - today Pain Intensity: 9 Pain Scale Used: 0-10 Numeric Aggravating Factor(s): Chewing Related History: Previous Dental Care on Same Tooth, Swelling - Allergies/Home Medications Allergies/Adverse Reactions: Allergies Allergy/AdvReac Type Severity Reaction Status Date / Time No Known Allergies Allergy Verified 10/27/17 15:33 Home Medications: Home Medications Aspirin 81 mg CHEW TAB* 81 mg PO BID 10/27/17 [History Confirmed 10/27/17] PMH/Surg Hx/FS Hx/Imm Hx Previously Healthy: No Cardiovascular History: Cardiac Disease - Surgical History Surgical History: Unable to Obtain/Confirm Surgery Procedure, Year, and Place: 5 HEART STENTS 12[place] [facility] [place] Family History Known Family History: Positive: Unknown - Unable to obtain - Social History Occupation: Unemployed Lives: With Family Alcohol Use: None Substance Use Type: None Smoking Status (MU): Former Smoker Type: Cigarettes Have You Smoked in the Last Year: Yes - Immunization History Most Recent Influenza Vaccination: never Most Recent Pneumonia Vaccination: never Review of Systems Constitutional: Negative Skin: Negative Eyes: Negative ENT: Dental Pain Respiratory: Negative Cardiovascular: Negative Gastrointestinal: Negative Genitourinary: Negative Motor: Negative Neurovascular: Negative Musculoskeletal: Negative Neurological: Negative Psychological: Negative Is Patient Immunocompromised?: No All Other Systems Reviewed And Are Negative: Yes Physical Exam Triage Information Reviewed: Yes Appearance: Well-Appearing, No Pain Distress, Well-Nourished Vital Signs: Initial Vital Signs Temp 99.0 F 10/27/17 15:26 Pulse 94 10/27/17 15:26 Resp 16 10/27/17 15:26 BP 140/77 10/27/17 15:26 Pulse Ox 98 10/27/17 15:26 Vital Signs Reviewed: Yes Eye Exam: Normal Eyes: Positive: Conjunctiva Clear ENT Exam: Other ENT: Positive: Normal ENT inspection, Hearing grossly normal, Pharynx normal, TMs normal, Dental tenderness, Uvula midline. Negative: Nasal congestion, Trismus, Muffled voice, Hoarse voice, Sinus tenderness Dental Exam: Other Dental: Positive: Percussion Tenderness @, Gross Decay/Caries @, Abscess @ Neck exam: Normal Neck: Positive: Supple, Nontender Respiratory Exam: Normal Respiratory: Positive: Chest non-tender, No respiratory distress, No accessory muscle use Cardiovascular Exam: Normal Cardiovascular: Positive: RRR, Pulses Normal, Brisk Capillary Refill Musculoskeletal Exam: Normal Musculoskeletal: Positive: Strength Intact, ROM Intact Neurological Exam: Normal Neurological: Positive: Alert, Muscle Tone Normal Psychological Exam: Normal Skin Exam: Normal Dental Complaint Course/Dx - Course Course Of Treatment: amoxicillin, hydrocodone, nsaids, follow with dentist david- --follow blood pressure with pcp - Differential Dx/Diagnosis Provider Diagnoses: right lower dental abscess with multiple carries, elevated blood pressure in poor control, nicotine dependant Discharge - Sign-Out/Discharge Documenting (check all that apply): Patient Departure All imaging exams completed and their final reports reviewed: No Studies - Discharge Plan Condition: Stable Disposition: HOME Prescriptions: Amoxicillin PO (*) [Amoxicillin 500 MG CAP*] 500 mg PO TID #30 cap Hydrocodone/Acetaminophen [Hydrocodone-Acetamin 5-325 mg] 1 each PO Q6H PRN #12 tablet MDD 4 PRN Reason: dental pain Patient Education Materials: Dental Abscess (ED), Hypertension (ED), Toothache (ED) Referrals: Marcelo Seymour MD [Primary Care Provider] - 1 Week Additional Instructions: follow with dentist DAVID - Billing Disposition and Condition Condition: STABLE Disposition: Home
== END 2017-10-27 16:00 | disposition home or self-care (01) ==
LOC: UCEAST 15:10
DX: K04.7 Periapical abscess without sinus (principal); K02.9 Dental caries, unspecified; F17.210 Nicotine dependence, cigarettes, uncomplicated
CPT/HCPCS: 99212; G0463